=== PATIENT | male | born 1980 | race Caucasian/White ===

== ENCOUNTER 2016-05-10 13:44 | Inpatient (IN) | payer OTHER ==
[~2016-05-10] VITALS: Ht 165.1 cm; Wt 75.5 kg
[2016-05-10] MEDS ORDERED: ONDANSETRON 4 MG INJ IV STA (15:29)
[2016-05-10] MEDS ORDERED: SOD CHLORIDE 0.9% 1,000 ML IV STA (15:29)
[2016-05-10] MEDS ORDERED: morphine 4 MG/ML VIAL IV STA (15:29)
--- NOTE | 2016-05-10 16:31 | RADRPT ---
PROCEDURE: XR Chest. CLINICAL INDICATION: chest pain, GI bleed TECHNIQUE: Single frontal view of the chest was obtained COMPARISON: None FINDINGS: The heart and mediastinum are within normal limits. The lungs are clear. There is no pleural effusion or pneumothorax. RPTAT: AA IMPRESSION: No acute disease. .Heath Toussaint MD, Date Time Electronically viewed and signed by .Heath Toussaint MD, on 05/10/2016 16:31 .S/
[2016-05-10 16:33] LABS: ALBUMIN 2.9 g/dl (3.3-4.9); CHLORIDE 98 mmol/L (97-110)
[2016-05-10 16:34] LABS: POTASSIUM 4.6 mmol/L (3.5-5.1); SODIUM 134 mmol/L (135-144)
[2016-05-10 16:35] LABS: INR 0.97; PARTIAL THROMBOPLASTIN TIME 36.5 Sec (25.0-35.0); PROTIME 12.9 Sec (12.2-14.2)
[2016-05-10 16:36] LABS: ANION GAP 17 (8-16); BILIRUBIN,INDIRECT 0.2 mg/dl (0-1.1); BILIRUBIN,TOTAL 0.2 mg/dl (0.2-1.3); CARBON DIOXIDE 24 mmol/L (21-31); CREATININE 1.97 mg/dl (0.61-1.24)
[2016-05-10 16:37] LABS: ALANINE AMINOTRANSFERASE 41 IU/L (13-69); ALBUMIN/GLOBULIN RATIO 0.67; ALKALINE PHOSPHATASE 46 IU/L (42-121); ASPARTATE AMINO TRANSFERASE 87 IU/L (15-46); BLOOD UREA NITROGEN 33 mg/dl (7-20); CALCIUM 8.1 mg/dl (8.4-10.2); GLUCOSE 92 mg/dl (70-220); TOTAL PROTEIN 7.2 g/dl (6.1-8.1)
[2016-05-10 16:42] LABS: HEMATOCRIT 28.9 % (42.0-52.0); HEMOGLOBIN 9.6 g/dl (14.0-18.0); MEAN CORPUSCULAR HEMOGLOBIN 25.5 pg (29.0-33.0); MEAN CORPUSCULAR HGB CONC 33.3 g/dl (32.0-37.0); MEAN CORPUSCULAR VOLUME 76.5 fl (82.0-101.0); MEAN PLATELET VOLUME 10.3 fl (7.4-10.4); PLATELET COUNT 139 10^3/UL (140-440); RED BLOOD COUNT 3.77 10^6/ul (4.70-6.10); RED CELL DISTRIBUTION WIDTH 16.3 % (11.5-14.5)
[2016-05-10 16:44] LABS: CONDITION 1; LH ANALYZER COMMENTS 1; SUSPECT 1; UNCORRECTED WBC 2.6 10^3/ul (4.8-10.8)
[2016-05-10 16:47] LABS: IRON 66 ug/dl (35-150)
[2016-05-10 16:50] LABS: TROPONIN-I < 0.010 ng/ml (0.00-0.12)
[2016-05-10 16:54] LABS: FREE T3 2.63 pg/ml (2.77-5.27)
[2016-05-10 16:56] LABS: TOTAL IRON BINDING CAPACITY 196 ug/dl (241-421)
--- NOTE | 2016-05-10 17:21 | ERA ---
ER Documentation Chief Complaint Date/Time DATE: 05/10/16 TIME: 17:03 Chief Complaint PT SENT PER PMD FOR ABNORMAL LAB RESULT, ALSO WITH BODYACHES, HX OF LUPUS HPI 36-year-old man referred here by PMD for new diagnosis of lupus. Recent laboratory work was positive for excessive urine protein and antibodies against double-stranded DNA. Patient states over the last month he has lost 20-30 pounds and his symptoms began back in December 2015 with generalized weakness, abdominal cramping, body aches and arthralgias, facial rash, and bilateral upper and lower extremity swelling. Patient was previously an alcoholic who drank beer daily although states in December he stopped drinking altogether. He denies blood per rectum or recent travel, no night sweats, no vomiting or diarrhea, no melena, no complaints of chest pain or shortness of breath. ROS All systems reviewed and are negative except as per history of present illness. Allergies Allergies: Coded Allergies: No Known Allergy (Unverified , 05/10/16) PMhx/Soc Previous alcoholic History of Surgery: No Anesthesia Reaction: No Hx Neurological Disorder: No Hx Respiratory Disorders: No Hx Cardiac Disorders: No Hx Miscellaneous Medical Probl: Yes (LUPUS, ANEMIA) Hx Alcohol Use: Yes (OCCASSIONAL) Hx Substance Use: No Hx Tobacco Use: No Smoking Status: Never smoker FmHx Family History: No diabetes Physical Exam Vitals Vital Signs Date Time Temp Pulse Resp B/P Pulse Ox O2 Delivery O2 Flow Rate FiO2 05/10/16 18:40 99.3 88 18 102/57 100 Room Air 05/10/16 13:51 97.6 106 18 102/57 100 Physical Exam GENERAL: Well-developed, dehydrated, afebrile HEENT: Dry mucous membranes with dry cracking lips, no cervical spine tenderness or step-off deformities, no goiter, no jaundice or icterus, extraocular movements intact without pain. No submandibular induration, and no pharyngeal erythema NEURO: Alert and oriented 3, cranial nerves II through XII intact bilaterally, pupils equal round reactive to light, no focal deficits or facial asymmetry, sensation intact distally Strength 5/5 in upper and lower extremities bilaterally CARDIAC: Regular rate and rhythm, no murmurs rubs or gallops LUNGS: Clear bilaterally no wheezing crackles or stridor ABDOMEN: Soft nontender, no guarding, no rigidity, no rebound, no psoas sign no obturator sign. Normoactive bowel sounds SKIN: Warm and dry to touch, positive Malar rash, no target lesions, and without ulcers EXTREMITIES: No clubbing cyanosis, + 1+ pitting edema in the lower extremities bilaterally, calves are bilaterally symmetrical, no Homans sign, no popliteal cord sign. Distal pulses equal and bilateral PSYCH: Normal affect without agitation or irritability Result Diagram: 05/10/16 1545 05/10/16 1545 Results 24 hrs Laboratory Tests Test 05/10/16 15:45 Activated Partial Thromboplast Time 36.5Sec Alanine Aminotransferase (ALT/SGPT) 41IU/L Albumin 2.9g/dl Albumin/Globulin Ratio 0.67 Alkaline Phosphatase 46IU/L Anion Gap 17 Anisocytosis 1+ Aspartate Amino Transf (AST/SGOT) 87IU/L Blood Morphology Comment Blood Urea Nitrogen 33mg/dl Calcium Level 8.1mg/dl Carbon Dioxide Level 24mmol/L Chloride Level 98mmol/L Creatinine 1.97mg/dl Direct Bilirubin 0.00mg/dl Free Thyroxine 1.20ng/dl Free Triiodothyronine (T3) pg/mL 2.63pg/ml Globulin 4.30g/dl Glucose Level 92mg/dl Hematocrit 28.9% Hemoglobin 9.6g/dl Hemoglobin A1c 5.9% Hypochromasia 2+ INR International Normalized Ratio 0.97 Indirect Bilirubin 0.2mg/dl Iron Level 66ug/dl Large Platelets FEW Lipase 854U/L Lymphocytes # 0.210^3/ul Lymphocytes % 10.0% Mean Corpuscular Hemoglobin 25.5pg Mean Corpuscular Hemoglobin Concent 33.3g/dl Mean Corpuscular Volume 76.5fl Mean Platelet Volume 10.3fl Microcytosis 2+ Monocytes # 0.310^3/ul Monocytes % 13.0% Neutrophils # 1.510^3/ul Neutrophils % 77.0% Nucleated Red Blood Cells # 10^3/ul Ovalocytes 1+ Percent Iron Saturation 34% SAT Platelet Count 88533^3/UL Platelet Estimate PLT APPEAR ADEQUATE Potassium Level 4.6mmol/L Prothrombin Time 12.9Sec Prothrombin Time Ratio 1.0 Red Blood Count 3.7710^6/ul Red Cell Distribution Width 16.3% Sodium Level 134mmol/L Stomatocytes Thyroid Stimulating Hormone (TSH) 4.620MIU/L Total Bilirubin 0.2mg/dl Total Iron Binding Capacity 196ug/dl Total Protein 7.2g/dl Troponin I < 0.010ng/ml White Blood Count 2.010^3/ul Current Medications Medications (Trade) Dose Ordered Sig/Low Route PRN Reason Start Time Stop Time Status Last Admin Dose Admin Sodium Chloride (NS) 1,000 ml @ 1,000 mls/hr Q1H STAT IV 05/10/16 15:29 05/10/16 16:28 DC 05/10/16 16:07 Ondansetron HCl (Zofran Inj) 4 mg ONCE STAT IV 05/10/16 15:29 05/10/16 15:34 DC 05/10/16 16:07 Morphine Sulfate (morphine) 4 mg ONCE STAT IV 05/10/16 15:29 05/10/16 15:34 DC 05/10/16 16:07 Procedures/MDM IV line was established patient was placed on monitoring specialist rhythm strip revealed a sinus rhythm at about 90 bpm with upright P and T waves. Patient was afebrile. For dehydration I administered 1 L normal saline intravenously, morphine 4 mg IV , Zofran 4 mg IV for arthralgias. One AP view of the chest performed, read by me reveals no acute infiltrates, normal mediastinum, sharp costophrenic and cardiac borders, no air under the diaphragm. Otherwise unremarkable chest x-ray. EKG performed, read by me: 91 bpm, normal sinus rhythm, normal axis, no acute ST segment changes, narrow QRS complex, with good R-wave progression in precordial leads. CBC revealed leukopenia at 2 and anemia with a hematocrit of 29, thrombocytopenia at 139,000, electrolytes revealed renal failure and dehydration with a BUN/creatinine of 33/2, liver function tests revealed low albumin, troponin was negative. Hemoglobin A1c was normal, free T3 was low, TSH I ordered type and screen. Lipase was elevated over 800 Critical Care: Time: 36 minutes, this was time separate from other procedures. Treatments/Evaluations: Close monitoring and treatment of unstable vital signs, cardiorespiratory, and neurologic status, while maintaining tight balance of fluid, respiratory, and cardiac interventions. CT scan of the abdomen and pelvis is also been ordered results are pending I will follow-up. Departure Diagnosis: Primary Impression: Acute systemic lupus erythematosus Additional Impressions: Thrombocytopenia Renal failure Dehydration Pancreatitis Qualified Code: K85.90 - Acute pancreatitis, unspecified complication status, unspecified pancreatitis type Condition: SHLOMO Rivero MD May 10, 2016 17:14
[2016-05-10 18:40] VITALS: TEMP 99.3
[2016-05-10 18:54] LABS: ANISOCYTOSIS 1+; HYPOCHROMASIA 2+; LYMPHOCYTES # 0.2 10^3/ul (0.8-2.9); MONOCYTE # 0.3 10^3/ul (0.3-0.9); NEUTROPHIL # 1.5 10^3/ul (1.6-7.5)
[2016-05-10 18:55] LABS: MICROCYTOSIS 2+; OVALOCYTES 1+
[2016-05-10 18:56] LABS: PLATELET ESTIMATE PLT APPEAR ADEQUATE
--- NOTE | 2016-05-10 19:24 | RADRPT ---
PROCEDURE: CT abdomen and pelvis without contrast and with 3-D reconstructions CLINICAL INDICATION: Abdominal pain TECHNIQUE: CT scan of the abdomen and pelvis without contrast was performed on a multislice [facility]. 3-D sagittal and coronal reformatted images were obtained from the axial source images. DLP 435.18 mGycm CTDIvol 7.79 mGy COMPARISON: None. FINDINGS: The visualized lung bases are unremarkable. The liver is homogenous in attenuation. There are no focal liver lesions. There is no intrahepatic or extrahepatic biliary ductal dilatation. The gallbladder is within normal limits. The spleen, pancreas, and adrenal glands are within normal limits. There is prominent bilateral perinephric stranding as well as mild left greater than right hydroneph rosis. The bladder is distended. No renal/ureteral calculi are identified. There are no dilated or thickened loops of bowel. The appendix is not definitely identified although there are no findings to suggest acute appendicitis. The aorta is within normal limits. There are multiple prominent though not pathologically enlarged periaortic lymph nodes as well as an aortocaval lymph node measuring up to 11 mm in short axis on se janell 3, image 76. There are prominent though not pathologically enlarged external iliac chain lymph nodes bilaterally as well as a 1.6 cm left pelvic sidewall lymph node on series 3, image 145. The bladder is within normal limits. There is no free air. There is no free fluid. There are no enlarged intrapelvic or inguinal lymph nodes. There is a tiny fat - containing umbilical hernia. IMPRESSION: There is prominent bilateral perinephric stranding bilaterally which can be seen with pyelonephritis . Correlation with physical exam for costovertebral angle tenderness as well as correlation with ur inalysis for WBC casts is recommended. The bladder is distended and there is mild left greater than right hydronephrosis. Consider placing a Damico catheter if the patient is unable to void. No renal/ureteral calculi. Multiple prominent retroperitoneal and iliac chain lymph nodes are noted as well as an 11 mm aortoca lisa lymph node and a 1.6 cm left pelvic sidewall lymph node. Findings are nonspecific although in a male patient this age, differential considerations include testicular malignancy. A scrotal ultras ound is recommended for further evaluation. Tiny fat - containing umbilical hernia. RPTAT: EE Marc Taylor, Physician Date Time Electronically viewed and signed by Marc Taylor, Physician on 05/10/2016 19:23 RA/
[2016-05-10] MEDS ORDERED: NACL 0.9% 3 ML SYG IV SCH (19:30)
[2016-05-10] MEDS ORDERED: DOCUSATE SODIUM 100 MG CAP PO PRN (19:30)
[2016-05-10] MEDS ORDERED: ZOLPIDEM 5 MG TAB PO PRN (19:30)
[2016-05-10] MEDS ORDERED: ONDANSETRON 4 MG INJ IV PRN (19:30)
[2016-05-10] MEDS ORDERED: morphine 2 MG INJ IV PRN (19:30)
[2016-05-10] MEDS ORDERED: HYDROCODONE/APAP (5/325) TAB PO PRN (19:30)
[2016-05-10 20:12] VITALS: BP 116/65; RESP 18
[2016-05-10] MEDS: ACETAMINOPHEN 325 MG TAB PO PRN (20:37)
[2016-05-10] MEDS: METHYLPRED. NA SUCC 1,000 MG in DEXTROSE 5% 50 ML IVPB SCH (21:26)
[2016-05-11 03:44] VITALS: Ht 165.1 cm; Wt 75.5 kg
[2016-05-11 06:08] LABS: POTASSIUM 4.9 mmol/L (3.5-5.1)
[2016-05-11 06:11] LABS: CREATININE 1.75 mg/dl (0.61-1.24)
[2016-05-11 06:12] LABS: CALCIUM 7.8 mg/dl (8.4-10.2); MAGNESIUM 2.3 mg/dl (1.7-2.5)
--- NOTE | 2016-05-11 06:16 | HP ---
DATE OF ADMISSION: 05/10/2016 CHIEF COMPLAINT: Generalized weakness, joint pain. HISTORY OF PRESENT ILLNESS: The patient is a 36-year-old male with a recently diagnosed history of lupus. He was diagnosed at urgent care. He did have an RINKU and double stranded DNA that were both positive. He presents with joint pain as well as generalized weakness and rash on his face. He was given steroids and antibiotics recently, but he stopped taking the medications secondary to nausea, vomiting, and abdominal pain. Antibiotic was reportedly given because of blood in his urine. The patient does have a history of heavy alcohol use but states that he has not been drinking heavily fo r some time now and states that mostly it was social. Otherwise, the patient has no prior medical h istory. His main issue at this time is his pain throughout his body and his weakness. He has no ot her complaints at this time. PAST MEDICAL HISTORY: Recently diagnosed lupus and fractures in both feet secondary to playing bask etball. PAST SURGICAL HISTORY: Appendectomy. HOME MEDICATIONS: He is not taking any medication at that time. He was given prednisone recently a nd antibiotic but has not been taking it. ALLERGIES: NO KNOWN DRUG ALLERGIES. FAMILY HISTORY: Denies. SOCIAL HISTORY: Denies any current alcohol abuse, drug abuse, or tobacco abuse. REVIEW OF SYSTEMS: A 12-point review of systems is negative except for that discussed in HPI. PHYSICAL EXAMINATION: VITAL SIGNS: Temperature is 99.3, pulse is 88, respiratory rate is 18, BP is 102/57, saturation is 100% on room air. GENERAL: Mild distress, lethargic. HEENT: Normocephalic, atraumatic. Malar rash is noted on the face. LUNGS: Clear to auscultation. CARDIOVASCULAR: Regular rate and rhythm. ABDOMEN: Nondistended, nontender, soft. EXTREMITIES: No clubbing, cyanosis, or edema. MUSCULOSKELETAL: Diffuse sites of tenderness throughout his body in his shoulders and his abdomen a nd knees and ankles. SKIN: Malar rash noted on his face. LABORATORIES: White count is 2.0, hemoglobin is 9.6, platelets 139. Chemistry: Sodium is 134, BUN 33, creatinine is 1.97. TIBC is 196. AST is 87. Lipase is 864. INR is 0.97. DIAGNOSTICS: Chest x-ray shows no acute disease. ASSESSMENT AND PLAN: 1. Diffuse body pain and weakness secondary to lupus. The patient has not been appropriately treat ed for his lupus. He will be admitted and will be started on steroids. The patient does have a pos itive double stranded DNA and RINKU from outside labs. We will obtain a rheumatology consultation. 2. Acute kidney injury. This is likely secondary to the underlying lupus. We will get a nephrolog y consultation. 3. Abdominal pain secondary to pancreatitis. Exact etiology is not clear at this time. The patien t denies any alcohol abuse. This may be related to medication he was taking. He was on an antibiot ic. The antibiotic is not known at this time. We will keep patient n.p.o. and give morphine for pa in control. 4. Pancytopenia. The patient is leukopenic, anemic, and thrombocytopenic. Cause is likely from un derlying lupus, possibly from liver disease from his history of drinking. We will obtain a hepatiti s panel and abdominal ultrasound to evaluate the liver texture. 5. Prophylaxis. SCDs. Dictated By: BABAR GOODWIN/CURT Conf#: [id number] DID#: [id number]
[2016-05-11 06:31] LABS: HEMATOCRIT 27.5 % (42.0-52.0); HEMOGLOBIN 9.2 g/dl (14.0-18.0); MEAN CORPUSCULAR HEMOGLOBIN 25.4 pg (29.0-33.0); MEAN CORPUSCULAR HGB CONC 33.3 g/dl (32.0-37.0); MEAN CORPUSCULAR VOLUME 76.1 fl (82.0-101.0); MEAN PLATELET VOLUME 10.5 fl (7.4-10.4); PLATELET COUNT 115 10^3/UL (140-440); RED BLOOD COUNT 3.62 10^6/ul (4.70-6.10); WHITE BLOOD COUNT 0.9 10^3/ul (4.8-10.8)
[2016-05-11 06:33] LABS: CHOL/HDL RATIO 5.9 RATIO
[2016-05-11 06:44] LABS: CONDITION 1; LH ANALYZER COMMENTS 1; SUSPECT 1; UNCORRECTED WBC 2.6 10^3/ul (4.8-10.8)
[2016-05-11 07:41] VITALS: BP 118/71; RESP 16
[2016-05-11 09:06] LABS: HAAIG REFLEX REFLEX FILED
--- NOTE | 2016-05-11 09:53 | CONS ---
DATE OF ADMISSION: 05/10/2016 DATE OF CONSULTATION: TYPE OF CONSULTATION: Nephrology. REASON FOR CONSULTATION: Acute kidney injury, possible lupus nephritis. HISTORY OF PRESENT ILLNESS: This is a 36-year-old male with no previous medical history who present s to [facility] with a new diagnosis of lupus. The patient's symptoms began in No vember when he started having generalized body aches, abdominal pain, weakness. He stated he has be en to multiple physicians and was being worked up for possible pylori. The patient was also given c ourses of antibiotics; however, his symptoms progressed including worsening arthralgia with concomit ant facial rash or ulcers. The patient does have a history of alcohol use and states that he has be en drinking heavily during this time as well. The patient's primary doctor eventually sent out sero logical data and he was told he had positive anti-double stranded DNA. The patient was then transfe rred to [facility] for further evaluation. In terms of the patient's renal history, the patient has no prior history of renal disease. He does admit to the last several weeks to months of having intermittent swelling of the lower extremity as well as very frothy urine, and he does admit to having a facial rash. Denies any lower extremity o r petechial rash. He admits to having arthralgias, myalgias, difficulty ambulating and walking. He denies any chest pain, tachypnea, hemoptysis, hematemesis. The patient has no prior history of kid osman disease that he is aware of. The patient's mother does have lupus, but there is no family histo ry of kidney disease. PAST MEDICAL HISTORY: History of recently diagnosed lupus. PAST SURGICAL HISTORY: History of appendectomy. HOME MEDICATIONS: None. ALLERGIES: NO KNOWN DRUG ALLERGIES. FAMILY HISTORY: Positive for lupus. SOCIAL HISTORY: History of alcohol use. REVIEW OF SYSTEMS: A 14-point review of systems was conducted. Pertinent positives as stated in HP I, otherwise negative. PHYSICAL EXAMINATION: VITAL SIGNS: Blood pressure is 118/71, respirations 16, pulse 89, temperature 99.0. HEENT: Head is normocephalic. Pupils are reactive to light. The patient has noticed malar rash on his face. On oral exam, the patient has noted aphthous ulcers. NECK: Supple. HEART: Regular rate. LUNGS: Show diminished breath sounds at base, otherwise clear. ABDOMEN: Soft, mild tenderness to palpation. Positive CVA tenderness bilaterally. EXTREMITIES: Negative for clubbing, cyanosis. Trace edema, noted malar rash. DERMATOLOGIC: No petechial rashes noted. NEUROLOGIC: Limited exam due to general weakness, but limited exam due to lack of patient cooperati on. MUSCULOSKELETAL: Positive tenderness to palpation of his upper and lower extremities. LABORATORY DATA: Patient's white count is 0.9, hemoglobin 9.2, hematocrit 27.5, platelet count is 1 15. Sodium 133, potassium 4.5, chloride 100, BUN 38, creatinine 1.75, calcium 7.8. Urinalysis pend ing. IMAGING STUDIES: A chest x-ray shows no acute disease. CT scan of the abdomen and pelvis shows mars ateral perinephric stranding and there is mild left greater than right hydronephrosis. Multiple ret roperitoneal chains noted. ASSESSMENT AND PLAN: This is a 36-year-old male who presents with: 1. Nonoliguric acute kidney injury with unknown baseline creatinine. Etiology of acute kidney inju ry is worrisome for possible lupus glomerulonephritis. The patient has a history of recent diagnosi s of lupus and is an active flare clinically, with ongoing arthralgias, myalgias also ulcers, rash. Plan at this point is to check a urinalysis. Will evaluate the urine under microscopy to see him t o see if there is any evidence of active sediment. Will check a protein/creatinine ratio and albumi n/creatinine ratio. We will also send out serologies including complements, anti-double stranded DN A, RINKU, ANCA, rheumatoid factor. A renal ultrasound will also be checked. If the patient's finding s are consistent with active sediment, possible lupus nephritis will then order a kidney biopsy for staging of lupus. Agree with current medication management with pulse steroids of Solu-Medrol 1 gra m IV daily for 3 days. Would defer further immunosuppression of either mycophenolate or Cytoxan unt il a formal tissue biopsy is able to be obtained and will continue to monitor closely. 2. Presumed lupus erythematosus. The patient appears to be in clinical flare with active arthralgi as, myalgias, oral ulcers. As stated above, we will send out serological data. A rheumatology cons ult has been placed. The patient is currently on pulse steroids. Will monitor closely. 3. Hyponatremia, etiology secondary to acute kidney injury. We will monitor closely and limit free water intake. 4. Mineral bone disorder. We will check calcium and phosphorus level. Defer any phosphate binders at this time. 5. Pancytopenia. Etiology is likely due to underlying lupus. Will monitor closely. We will follo w up serologies. The patient is currently being pulsed with steroids. May consider hematologic farncisca luation. 6. Abdominal pain. Etiology secondary to pancreatitis and due to underlying lupus a CT scan was re viewed. We will continue current treatment plan. 7. History of alcohol abuse. Continue to monitor. 8. Bilateral hydronephrosis, mild. The patient's CT scan shows perinephric stranding which can be seen in pyelonephritis or acute glomerulonephritis. At this point, will get a renal ultrasound for further evaluation and monitor. Thank you, Dr. Leung, for this interesting consultation. It will be a pleasure to follow patient with you throughout the hospital course. Dictated By: ISMAEL WALL/CURT Conf#: [id number] DID#: [id number]
[2016-05-11 10:03] LABS: LYMPHOCYTES # 0.1 10^3/ul (0.8-2.9); NEUTROPHIL # 0.7 10^3/ul (1.6-7.5)
[2016-05-11 11:39] LABS: COMPLEMENT C3 < 40 mg/dl (88-165); COMPLEMENT C4 < 8 mg/dl (14-44)
[2016-05-11 11:49] LABS: HEMATOCRIT 28.3 % (42.0-52.0); HEMOGLOBIN 9.4 g/dl (14.0-18.0); MEAN CORPUSCULAR HEMOGLOBIN 25.7 pg (29.0-33.0); MEAN CORPUSCULAR HGB CONC 33.2 g/dl (32.0-37.0); MEAN CORPUSCULAR VOLUME 77.3 fl (82.0-101.0); PLATELET COUNT 111 10^3/UL (140-440); RED BLOOD COUNT 3.66 10^6/ul (4.70-6.10); RED CELL DISTRIBUTION WIDTH 15.9 % (11.5-14.5); WHITE BLOOD COUNT 1.4 10^3/ul (4.8-10.8)
[2016-05-11 11:56] LABS: CONDITION 1; LH ANALYZER COMMENTS 1; SUSPECT 1; UNCORRECTED WBC 2.6 10^3/ul (4.8-10.8)
[2016-05-11 12:17] LABS: HEPATITIS B CORE ANTIBODY NEGATIVE (NEGATIVE)
[2016-05-11 14:15] LABS: LYMPHOCYTES # 0.3 10^3/ul (0.8-2.9); MONOCYTE # 0.1 10^3/ul (0.3-0.9); NEUTROPHIL # 0.9 10^3/ul (1.6-7.5)
[2016-05-11 14:16] LABS: PLATELETS CLUMPS RARE
--- NOTE | 2016-05-11 16:15 | PN ---
Date/Time of Note Date/Time of Note DATE: 05/11/16 TIME: 16:12 Assessment/Plan VTE Prophylaxis VTE Prophylaxis Intervention: SCD's Lines/Catheters IV [facility]ter [facility] ([facility] Peripheral IV Urinary Cath still in place: No Assessment/Plan Chief Complaint/Hosp Course 1. Diffuse body pain and weakness secondary to lupus -Continue steroid pulses -Rheumatology consultation to be obtained 2. Acute kidney injury possibly secondary to lupus nephritis -Nephrology consultation appreciated, continue steroid pulses 3. Abdominal pain secondary to pancreatitis-improved -Etiology is not clear at this time 4. Pancytopenia. The patient is leukopenic, anemic, and thrombocytopenic. Cause is likely from underlying lupus, possibly from liver disease from his history of drinking -Follow-up on hepatitis panel and ultrasound of the abdomen to evaluate the liver 5. Prophylaxis. SCDs. Problems: Subjective 24 Hr Interval Summary Constitutional: no complaints Exam/Review of Systems Vital Signs Vitals Vital Signs Date Time Temp Pulse Resp B/P Pulse Ox O2 Delivery O2 Flow Rate FiO2 05/11/16 07:41 99.0 89 16 118/71 97 05/10/16 18:40 Room Air Intake and Output 05/10/16 05/10/16 05/11/16 15:00 23:00 07:00 Intake Total 50 ml 1160 ml Output Total 600 ml Balance 50 ml 560 ml Exam Constitutional: alert, oriented Respiratory: clear to auscultation Cardiovascular: regular rate and rhythm Gastrointestinal: non-tender, soft, No distended Musculoskeletal: nl extremities to inspection Results Result Diagram: 05/11/16 0435 05/11/16 0500 Results 24 hrs Laboratory Tests Test 05/11/16 04:15 05/11/16 04:35 05/11/16 05:00 05/11/16 09:50 Band Neutrophils % 3.0 Basophils # 0.0 Basophils % 1.0 Blood Morphology Comment Clumped Platelets RARE Eosinophils # Eosinophils % Hematocrit 28.3 L 27.5 L Hemoglobin 9.4 L 9.2 L Hemoglobin A1c 5.9 Lymphocytes # 0.3 L 0.1 L Lymphocytes % 24.0 16.0 Mean Corpuscular Hemoglobin 25.7 L 25.4 L Mean Corpuscular Hemoglobin Concent 33.2 33.3 Mean Corpuscular Volume 77.3 L 76.1 L Mean Platelet Volume 11.0 H 10.5 H Monocytes # 0.1 L 0.0 L Monocytes % 10.0 5.0 Neutrophils # 0.9 L 0.7 L Neutrophils % 62.0 79.0 H Nucleated Red Blood Cells # Platelet Count 111 #L 115 L Red Blood Count 3.66 L 3.62 L Red Cell Distribution Width 15.9 H 16.0 H White Blood Count 1.4 #L 0.9 #L Complement C3 < 40 L Complement C4 < 8 L Differential Comment MANUAL DIFF Hepatitis B Core Total Antibody NEGATIVE Hepatitis B Surface Antigen NEGATIVE Hepatitis C Antibody NEGATIVE Osmolality 285 Anion Gap 16 Blood Urea Nitrogen 38 H Calcium Level 7.8 L Carbon Dioxide Level 22 Chloride Level 100 Cholesterol Level 77 L Cholesterol/HDL Ratio 5.9 Creatinine 1.75 H Glucose Level 151 HDL Cholesterol 13 L LDL Cholesterol, Calculated 41 Magnesium Level 2.3 Potassium Level 4.9 Sodium Level 133 L Triglycerides Level 117 HIV (1&2) Antibody NEGATIVE Medications Medications Current Medications Ondansetron HCl (Zofran Inj) 4 mg Q6H PRN IV NAUSEA AND/OR VOMITING; Start at 19:30 Acetaminophen (Tylenol Tab) 650 mg Q6H PRN PO PAIN LEVEL 1-3 OR FEVER Last administered on 05/10/16 20:37; Admin Dose 650 MG; Start 05/10/16 at 19:30 Acetaminophen/ Hydrocodone Bitart ([place] (5/325)) 1 tab Q6H PRN PO MODERATE PAIN LEVEL 4-6; Start 05/10/16 at 19:30 Morphine Sulfate (morphine) 2 mg Q4H PRN IV SEVERE PAIN LEVEL 7-10; Start 05/10 at 19:30 Docusate Sodium (Colace) 100 mg Q12H PRN PO CONSTIPATION; Start 05/10/16 at 19: 30 Zolpidem Tartrate 5 mg 5 mg QHS PRN PO SLEEP; Start 05/10/16 at 19:30 Methylprednisolone Sodium Succinate/ Dextrose (Solu-Medrol/D5W) 50 ml @ 100 mls /hr Q24H IVPB Last administered on 05/10/16 21:26; Admin Dose 100 MLS/HR; Start 05/10/16 at 21:00; Stop 05/12/16 at 21:29 BABAR SANCHEZ May 11, 2016 16:15
--- NOTE | 2016-05-11 17:39 | RADRPT ---
PROCEDURE: US Abdomen and Retroperitoneum. CLINICAL INDICATION: Abdominal pain. TECHNIQUE: Multiple real-time longitudinal and transverse images were acquired of the patient's ab domen and retroperitoneum utilizing a curved array transducer. COMPARISON: No prior studies are available for comparison. FINDINGS: The liver is normal in size and echogenicity. The liver has a normal smooth surface. There is no fo mathieu hepatic lesion. Color Doppler and pulsed Doppler sonography demonstrate normal antegrade flow in the portal vein. There are no gallstones in the gallbladder. There is an anterior wall gallbladder polyp measuring 0 .2 cm, probably benign. There is gallbladder wall thickening measuring 4.3 mm and adjacent trace fl uid. The bile ducts are normal with the common bile duct measuring 2.1 mm in diameter. The spleen is normal in size. There is no focal splenic lesion. The pancreas is partially seen and is unremarkable. There is no free fluid. The right kidney measures 11.8 x 5.2 x 5.7 cm and the left kidney measures 12.4 x 5.9 x 4.6 cm. There is no renal mass. There is no hydronephrosis or calculus. The abdominal aorta is not dilated. The inferior vena cava is unremarkable. IMPRESSION: 1. Small gallbladder polyp measuring 0.2 cm. Follow-up ultrasound in 6 months advised. 2. Mild gallbladder wall thickening with adjacent trace fluid. This may indicate acalculous cholec ystitis. Clinical correlation advised. 3. Otherwise unremarkable ultrasound of the abdomen and retroperitoneum. RPTAT: QQ .Stew Garcia MD, MD Date Time Electronically viewed and signed by .Stew Garcia MD, on 05/11/2016 17:39 .R/
[2016-05-11 19:15] VITALS: BP 118/76; RESP 18
[2016-05-11] MEDS ORDERED: VITAMIN A & D 5 GM OINT PACKET TOP ONE (20:42)
[2016-05-11] MEDS: METHYLPRED. NA SUCC 1,000 MG in DEXTROSE 5% 50 ML IVPB SCH (22:52)
[2016-05-12] VITALS (7 sets, daily range): BP systolic 110–126; BP diastolic 70–84; PULSE 68–90; RESP 16–21
--- NOTE | 2016-05-12 03:40 | RADRPT ---
PROCEDURE: Ultrasound of the scrotum. CLINICAL INDICATION: Clinical suspicion for neoplasm. TECHNIQUE: Ultrasound of the scrotum was performed utilizing color Doppler flow imaging COMPARISON: There are no similar studies submitted for comparison. FINDINGS: Right testis: Size (cm): 3.2 x 1.8 x 2.6 Echotexture: Normal Doppler flow: Present Epididymal head: Unremarkable Hydrocele: Small hydrocele is present. Varicocele: Small varicocele is present. Left testis: Size (cm): 3.9 x 2 x 2.9 Echotexture: Normal Doppler flow: Present Epididymal head: Unremarkable Hydrocele: None Varicocele: Small varicocele is present. IMPRESSION: Small bilateral hydroceles and small right hydrocele. No evidence of testicular mass. RPTAT: HIKT .Reed Marie MD, Date Time Electronically viewed and signed by .Reed Marie MD, on 05/12/2016 03:40 .T/
[2016-05-12 05:28] LABS: HEMATOCRIT 28.7 % (42.0-52.0); HEMOGLOBIN 9.8 g/dl (14.0-18.0); MEAN CORPUSCULAR VOLUME 76.6 fl (82.0-101.0); MEAN PLATELET VOLUME 11.1 fl (7.4-10.4); PLATELET COUNT 134 10^3/UL (140-440); RED BLOOD COUNT 3.75 10^6/ul (4.70-6.10); RED CELL DISTRIBUTION WIDTH 16.1 % (11.5-14.5); WHITE BLOOD COUNT 2.1 10^3/ul (4.8-10.8)
[2016-05-12 05:49] LABS: POTASSIUM 4.5 mmol/L (3.5-5.1)
[2016-05-12 05:52] LABS: CREATININE 1.71 mg/dl (0.61-1.24); PHOSPHORUS 5.8 mg/dl (2.5-4.9)
[2016-05-12 05:53] LABS: MAGNESIUM 2.5 mg/dl (1.7-2.5)
[2016-05-12 05:57] LABS: CONDITION 1; LH ANALYZER COMMENTS 1; SUSPECT 1
[2016-05-12 09:26] LABS: ADD UMIC YES; URINE BILIRUBIN (Dip) NEGATIVE (NEGATIVE); URINE BLOOD (Dip) 3+ (NEGATIVE); URINE COLOR LT. YELLOW (YELLOW); URINE GLUCOSE (Dip) NEGATIVE (NEGATIVE); URINE KETONES (Dip) NEGATIVE (NEGATIVE); URINE LEUKOCYTE ESTERASE (Dip) NEGATIVE (NEGATIVE); URINE NITRITE (Dip) NEGATIVE (NEGATIVE); URINE TOTAL PROTEIN (Dip) 1+ (NEGATIVE); URINE UROBILINOGEN (Dip) 0.2 E.U./dL (0.1-1.0)
[2016-05-12 09:45] LABS: SQUAMOUS EPITHELIAL CELL,UR OCCASIONAL; URIC ACID CRYSTALS,URINE FEW
[2016-05-12 10:49] LABS: ANISOCYTOSIS 1+; HYPOCHROMASIA 2+; LYMPHOCYTES # 0.5 10^3/ul (0.8-2.9); MONOCYTE # 0.1 10^3/ul (0.3-0.9); NEUTROPHIL # 1.4 10^3/ul (1.6-7.5)
[2016-05-12 10:50] LABS: MICROCYTOSIS 2+
[2016-05-12 11:55] LABS: MYELOPEROXIDASE ANTIBODY <1.0 AI; PROTEINASE-3 ANTIBODY <1.0 AI
[2016-05-12] MEDS: SOD CHLORIDE 0.9% 1,000 ML IV SCH (13:17)
--- NOTE | 2016-05-12 13:56 | PN ---
DATE: 05/12/2016 SUBJECTIVE: The patient continues to have low-grade fevers, but generally the patient is feeling be tter overall. Notes arthralgia, myalgia. The patient continues to have oral mouth pain. Denies an y hemoptysis, any chest pain, hematochezia. OBJECTIVE: VITAL SIGNS: Blood pressure is 116/74, respiration 16, pulse 79, temperature 97.4. HEENT: Head is normocephalic. Pupils are reactive. Mouth shows noted ulcers. NECK: Supple. HEART: Regular rate. LUNGS: Show diminished breath sounds at the base. ABDOMEN: Soft, nontender to palpation. No rebound or guarding. EXTREMITIES: Negative for clubbing, cyanosis. No edema. DERMATOLOGIC: The patient has a noted malar rash. NEUROLOGIC: No focal deficits. LABORATORY DATA: Shows a sodium 137, potassium 4.5, chloride 105, BUN 50, creatinine 1.70. Calcium 8.0, phosphorus 5.8. White count is 2.1, hemoglobin 9.8, hematocrit 28.7, platelet count is 134. The patient's serological data shows C3, C4 low complements less than 40 and 8, elevated double stra nded DNA of 961. Urinalysis shows RBCs 5 to 10, WBCs 2 to 5, positive granular casts, +3 hemoglobin , +1 proteinuria. Abdominal ultrasound showed right and left kidneys 12.4 and 11.8 cm respectively. ASSESSMENT AND PLAN: 1. Nonoliguric acute kidney injury with unknown baseline creatinine. Etiology is worrisome for lup us glomerulonephritis. The patient has an active urinary sediment of proteinuria, hematuria and gra nular casts. These findings are consistent with a tubular injury and possible glomerulonephritis. Additionally, the patient has evidence of active lupus flare with low complements, elevated double s tranded DNA and systemic complaints of arthralgias, myalgias, oral ulcers, malar rash. The patient also is in acute kidney injury. His creatinine appears to be stabilizing around 1.7 mg/dL. Plan at this point is to continue pulse steroid. The patient is receiving 1 g Solu-Medrol daily. Today is day #2. Tomorrow will be day #3. We will then transition patient to oral prednisone. Further ser ological data including anti-[place], ANCA, RINKU are still pending. The patient is also pending renal biopsy for staging of underlying lupus. Would defer further immunosuppression therapy of Cytoxan or mycophenolate until formal biopsy tissue returns. We will monitor closely. 2. Lupus erythematosus. The patient is in active flare as stated above with arthralgia, myalgias, oral ulcers. The patient's complement levels are low, has positive anti-double stranded DNA. Plan is to continue to monitor. We will follow up for rheumatologic evaluation. Continue pulse steroids . 3. Hyponatremia, resolved. 4. Mineral bone disorder. Phosphorus levels are elevated secondary to acute kidney injury. Contin ue to monitor. 5. Pancytopenia due to underlying lupus. Continue to monitor. Consider hematologic evaluation. C ontinue pulse steroids. 6. Abdominal pain, likely secondary to underlying lupus flare. Continue current treatment plan. 7. History of alcohol abuse. Continue to monitor. 8. Mild bilateral hydronephrosis, improved. Repeat ultrasound shows no evidence of obstruction. Dictated By: ISMAEL WALL/CURT Conf#: [id number] DID#: [id number]
--- NOTE | 2016-05-12 16:26 | PN ---
Date/Time of Note Date/Time of Note DATE: 05/12/16 TIME: 16:23 Assessment/Plan VTE Prophylaxis VTE Prophylaxis Intervention: SCD's Lines/Catheters [facility] Peripheral IV Urinary Cath still in place: No Assessment/Plan Chief Complaint/Hosp Course 1. Diffuse body pain and weakness secondary to lupus -Continue steroid pulses -Rheumatology consultation obtained, FU with recs 2. Acute kidney injury possibly secondary to lupus nephritis -Nephrology consultation appreciated, continue steroid pulses 3. Abdominal pain secondary to pancreatitis-improved -Etiology is not clear at this time 4. Pancytopenia. The patient is leukopenic, anemic, and thrombocytopenic. Cause is likely from underlying lupus, possibly from liver disease from his history of drinking -Follow-up on hepatitis panel and ultrasound of the abdomen to evaluate the liver 5. Prophylaxis. SCDs. Problems: Subjective 24 Hr Interval Summary Constitutional: no complaints Exam/Review of Systems Vital Signs Vitals Vital Signs Date Time Temp Pulse Resp B/P Pulse Ox O2 Delivery O2 Flow Rate FiO2 05/12/16 07:58 97.4 79 16 116/74 95 05/10/16 18:40 Room Air Intake and Output 05/11/16 05/11/16 05/12/16 15:00 23:00 07:00 Intake Total 900 ml 1050 ml Output Total 1100 ml Balance -200 ml 1050 ml Exam Constitutional: alert, oriented Respiratory: clear to auscultation Cardiovascular: regular rate and rhythm Gastrointestinal: soft, No distended Musculoskeletal: nl extremities to inspection Results Result Diagram: 05/12/16 0430 05/12/16 0430 Results 24 hrs Laboratory Tests Test 05/11/16 21:39 05/12/16 04:30 05/12/16 08:30 Urine Random Creatinine 84.26 62.34 Urine Random Sodium 29 L 24 L Urine Total Protein Anion Gap 17 H Anisocytosis 1+ Blood Morphology Comment Blood Urea Nitrogen 50 H Calcium Level 8.0 L Carbon Dioxide Level 20 L Chloride Level 105 Creatinine 1.71 H Erythrocyte Sedimentation Rate 44 H Glucose Level 162 Hematocrit 28.7 L Hemoglobin 9.8 L Hypochromasia 2+ Lymphocytes # 0.5 L Lymphocytes % 24.0 Magnesium Level 2.5 Mean Corpuscular Hemoglobin 26.0 L Mean Corpuscular Hemoglobin Concent 34.0 Mean Corpuscular Volume 76.6 L Mean Platelet Volume 11.1 H Microcytosis 2+ Monocytes # 0.1 L Monocytes % 7.0 Neutrophils # 1.4 L Neutrophils % 69.0 Nucleated Red Blood Cells % 9.0 H Phosphorus Level 5.8 H Platelet Count 134 L Potassium Level 4.5 Red Blood Count 3.75 L Red Cell Distribution Width 16.1 H Sodium Level 137 White Blood Count 2.1 #L Urine Bilirubin NEGATIVE Urine Clarity CLEAR Urine Color LT. YELLOW Urine Fine Granular Casts OCCASIONAL Urine Glucose NEGATIVE Urine Hemoglobin 3+ H Urine Ketones NEGATIVE Urine Leukocyte Esterase NEGATIVE Urine Microscopic RBC 5-10 Urine Microscopic WBC 2-5 Urine Nitrite NEGATIVE Urine Specific [place] 1.025 Urine Squamous Epithelial Cells OCCASIONAL Urine Uric Acid Crystals FEW Urine Urobilinogen 0.2 E.U./dL Urine pH 5.0 Medications Medications Current Medications Ondansetron HCl (Zofran Inj) 4 mg Q6H PRN IV NAUSEA AND/OR VOMITING; Start at 19:30 Acetaminophen (Tylenol Tab) 650 mg Q6H PRN PO PAIN LEVEL 1-3 OR FEVER Last administered on 05/10/16 20:37; Admin Dose 650 MG; Start 05/10/16 at 19:30 Acetaminophen/ Hydrocodone Bitart ([place] (5/325)) 1 tab Q6H PRN PO MODERATE PAIN LEVEL 4-6; Start 05/10/16 at 19:30 Morphine Sulfate (morphine) 2 mg Q4H PRN IV SEVERE PAIN LEVEL 7-10; Start 05/10 at 19:30 Docusate Sodium (Colace) 100 mg Q12H PRN PO CONSTIPATION; Start 05/10/16 at 19: 30 Zolpidem Tartrate 5 mg 5 mg QHS PRN PO SLEEP; Start 05/10/16 at 19:30 Methylprednisolone Sodium Succinate 1000 mg/Dextrose 50 ml @ 100 mls/hr Q24H IVPB Last administered on 05/11/16 22:52; Admin Dose 100 MLS/HR; Start at 21:00; Stop 05/12/16 at 21:29 Sodium Chloride (NS) 1,000 ml @ 50 mls/hr Q20H IV Last administered on 13:17; Admin Dose 50 MLS/HR; Start 05/12/16 at 11:30 BABAR SANCHEZ May 12, 2016 16:26
--- NOTE | 2016-05-12 20:09 | CONS ---
DATE OF ADMISSION: 05/10/2016 DATE OF CONSULTATION: TYPE OF CONSULTATION: Rheumatology. HISTORY OF PRESENT ILLNESS: Patient is a 36-year-old man who was in good apparent health until 02/2016 when he developed diffuse myalgias and arthralgias and some increased fatigue, as well as some lower extremity edema. About a month ago, he developed a rash in the face and some lip sores. He was noted to have a positive RINKU and double stranded DNA and was referred to the hospital for further evaluation and treatment. The patient denies a prior history of arthritis or rashes. Denies a history of photosensitivity. Two months ago he was treated for possible H. pylori, although denies abdominal pain at present. Today, he received a third Solu-Medrol 1 gram IV bolus and he is feeling much better, much less arthralgias and joint stiffness. PAST MEDICAL HISTORY: Basically unremarkable. PAST SURGERIES: Appendectomy. MEDICATIONS PRIOR TO ADMISSION: None. ALLERGIES: NO KNOWN ALLERGIES. Pulse 90 respirations 18 afebrile SOCIAL HISTORY: The patient is single, does have a history of heavy alcohol use. Denies smoking. FAMILY HISTORY: Positive for lupus in several family members. REVIEW OF SYSTEMS: Negative for fevers. HEENT: Without visual symptoms. RESPIRATORY: Denies shortness of breath or chest pains. CARDIAC: Denies palpitations. ABDOMEN: Denies abdominal pain, nausea, or vomiting. Denies hematemesis or bright red blood per rectum. GENITOURINARY: He denies dysuria or increased frequency, although may have had some frothy urine recently. EXTREMITIES: Edema in the lower extremities recently as above. NEUROLOGIC: Denies numbness or paresthesias or headaches. MUSCULOSKELETAL: As above. Denies actual joint swelling. Physical examination Vital signs 125/67 pulse 90 respirations 18 afebrile General well-developed well-nourished male no acute distress alert oriented 3 Skin with maculopapular rash forehead and cheeks. HEENT superficial left postdose source in the lower lip otherwise without acute or ocular lesions noted Neck without lymphadenopathy supple Chest clear to auscultation Heart regular rhythm without gallops or murmurs noted or bruits Abdomen soft without masses or tenderness Extremities without edema or cyanosis Musculoskeletal exam all joints with good range of motion with no synovitis Neurologic exam grossly intact LABORATORY STUDIES: Noted, including urinalysis with only 1+ protein. C3 less than 40 minutes. C4 less than 8. Double stranded DNA highly positive at 161. PR3 negative, MPO negative. Rheumatoid factor negative. Cryoglobulins pending. White count around 2000, down to 0.9 on 05/11/2016, hemoglobin down to 9.2, hematocrit 27.5 yesterday. Platelet count 115,000. Sedimentation rate 44. BUN 38, creatinine 1.75 on 05/11/2016. BUN 50, creatinine 1.71 today. Cholesterol 77. Hepatitis serologies negative. HIV serology negative. Chest x -ray with clear lung bobo, no cardiomegaly. CT of the abdomen and pelvis noted. Other imaging studies noted. ASSESSMENT: 1. Systemic lupus erythematosus with positive serologies including double stranded DNA and low complement as well as malar rash, leukopenia, anemia and probable glomerulonephritis. 2. Glomerulonephritis with elevated creatinine likely due to lupus. 3. Anemia, likely a combination of this, but primarily due to the inflammatory process and renal insufficiency. No evidence of hemolysis so far or of blood loss. PLAN: 1. I agree with having taken the three 1 gram Solu-Medrol boluses. 2. I would like to start the patient on immunosuppressive medication with CellCept at 500 mg b.i.d. for now. 3. Would decrease the prednisone to 60 mg per day at this point and will discuss further with the oil rag washer. 4. I agree with renal biopsy as soon as possible to clarify the renal status. I spoke in detail with the patient regarding the probable diagnosis of lupus and glomerulonephritis as well as the mechanism, and I spoke with him in detail about potential side effects of corticosteroids and of the immunosuppressive medications. The patient is aware. Thank you for having me see the patient rheumatologically. Will follow with you while in the hospital. Dictated By: ARIEL PELAYO/CURT Conf#: [id number] DID#: [id number] AMAYA
[2016-05-12 20:15] LABS: ANA SCREEN POSITIVE (NEGATIVE)
[2016-05-12] MEDS: MYCOPHENOLATE 250 MG CAP PO SCH ×2 (21:00→22:40)
[2016-05-12] MEDS: METHYLPRED. NA SUCC 1,000 MG in DEXTROSE 5% 50 ML IVPB SCH ×2 (21:00→22:40)
[2016-05-12] MEDS ORDERED: VITAMIN A & D 5 GM OINT PACKET TOP ONE (21:04)
[2016-05-13 05:14] LABS: HEMATOCRIT 28.5 % (42.0-52.0); HEMOGLOBIN 9.6 g/dl (14.0-18.0); MEAN CORPUSCULAR HEMOGLOBIN 25.9 pg (29.0-33.0); MEAN CORPUSCULAR HGB CONC 33.9 g/dl (32.0-37.0); MEAN CORPUSCULAR VOLUME 76.4 fl (82.0-101.0); MEAN PLATELET VOLUME 11.1 fl (7.4-10.4); PLATELET COUNT 167 10^3/UL (140-440); RED BLOOD COUNT 3.73 10^6/ul (4.70-6.10); RED CELL DISTRIBUTION WIDTH 16.7 % (11.5-14.5); WHITE BLOOD COUNT 3.5 10^3/ul (4.8-10.8)
[2016-05-13 05:21] LABS: CONDITION 1; LH ANALYZER COMMENTS 1; SUSPECT 1; UNCORRECTED WBC 3.8 10^3/ul (4.8-10.8)
[2016-05-13 05:29] LABS: POTASSIUM 4.5 mmol/L (3.5-5.1)
[2016-05-13 05:32] LABS: CREATININE 1.45 mg/dl (0.61-1.24)
[2016-05-13 05:33] LABS: CALCIUM 8.1 mg/dl (8.4-10.2); MAGNESIUM 2.5 mg/dl (1.7-2.5); PHOSPHORUS 4.7 mg/dl (2.5-4.9)
[2016-05-13] MEDS: SOD CHLORIDE 0.9% 1,000 ML IV SCH ×2 (07:30→10:50)
[2016-05-13 08:13] VITALS: BP 117/72; RESP 18
[2016-05-13] MEDS ORDERED: MIDAZOLAM 1 MG/ML 2 ML INJ ONE (08:20)
[2016-05-13] MEDS ORDERED: LIDOCAINE 1% (MDV) 20 ML INJ ONE (08:20)
[2016-05-13] MEDS ORDERED: FENTAnyl 50 MCG/ML VIAL ONE (08:21)
[2016-05-13] MEDS ORDERED: DIPHENHYDRAMINE 50 MG INJ ONE (08:21)
[2016-05-13] MEDS ORDERED: GELATIN 12MM X 7 MM SPONGE ONE (09:01)
--- NOTE | 2016-05-13 09:37 | PN ---
DATE: 05/13/2016 SUBJECTIVE: The patient is stable. He is pending a renal biopsy this morning. The patient continu es to have arthralgias and myalgias, but improving. No other acute events noted. No hemoptysis, he matemesis or hematochezia. OBJECTIVE: VITAL SIGNS: Blood pressure is 115/75, respirations 20, pulse 66, temperature 97.6. HEENT: Head is normocephalic. Pupils are reactive. Mouth shows noted ulcers. NECK: Supple. HEART: Regular rate. LUNGS: Showed diminished breath sounds at the base. ABDOMEN: Soft, nontender to palpation. No rebound or guarding. EXTREMITIES: Negative for clubbing, cyanosis, or edema. DERMATOLOGIC: No rashes. NEUROLOGIC: No focal deficits. MEDICATIONS: The patient's medications have been reviewed. LABORATORY DATA: Shows sodium 143, potassium 4.5, chloride 111, BUN 49, creatinine 1.45. White cou nt 3.5, hemoglobin 9.6, hematocrit 28.5, platelet count is 167. The patient's serological data, RINKU is positive, ANCA is negative, hepatitis panel is negative, rheumatoid factor is negative. ASSESSMENT AND PLAN: 1. Nonoliguric acute kidney injury, with an unknown baseline creatinine. 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 The patient has an active urinary sediment with proteinuria, hematuria a nd casts. The patient's urine was evaluated by myself under microscopy, which showed evidence of dysmorphic cells. These findings are consistent with a possible glomerulonephritis. The patien t also has evidence of active lupus flare, with low complements, elevated RINKU, anti-double stranded DNA, and clinical symptoms of arthralgia and myalgias. The plan at this point is for the patient to have a renal biopsy. The patient has completed his pulse steroids. Agree with starting prednisone at 60 mg daily. Agree with CellCept, which has been initiated by the lead installer at 500 mg b.i. d. Will await for final renal pathology to see if dose of CellCept would need to be increased to a higher dose. Otherwise would continue gentle IV hydration. Continue supportive care, renally dose all meds and avoid nephrotoxins. 2. Lupus erythematosus. Patient with active flare. He was seen by rheumatology, currently on Cell Cept and prednisone. Will continue. Follow up recommendations. 3. Hyponatremia. Resolved. 4. Mineral bone disorder. Continue to monitor calcium and phosphorus levels. 5. Pancytopenia secondary to lupus. Continue the current medical management. 6. Abdominal pain, likely due to lupus flare. Improving. 7. History of alcohol abuse. 8. General debility. Dictated By: ISMAEL WALL/CURT Conf#: [id number] DID#: [id number]
[2016-05-13 10:09] LABS: LYMPHOCYTES # 0.6 10^3/ul (0.8-2.9); MONOCYTE # 0.1 10^3/ul (0.3-0.9); NEUTROPHIL # 2.8 10^3/ul (1.6-7.5)
[2016-05-13 10:10] LABS: ANISOCYTOSIS 1+; HYPOCHROMASIA 2+; MICROCYTOSIS 2+; PLATELETS CLUMPS RARE
[2016-05-13 10:40] VITALS: BP 108/71; PULSE 63; RESP 18
[2016-05-13] MEDS: predniSONE 20 MG TAB PO SCH (10:50)
[2016-05-13] MEDS: MYCOPHENOLATE 250 MG CAP PO SCH ×2 (10:50→20:17)
[2016-05-13 11:00] VITALS: BP 114/74; PULSE 60; RESP 16
[2016-05-13 11:15] VITALS: BP 111/71; PULSE 60; RESP 18
--- NOTE | 2016-05-13 12:53 | RADRPT ---
PROCEDURE: CT guided left renal biopsy. CLINICAL INDICATION: Medical renal disease. New onset of lupus. TECHNIQUE: Informed consent was obtained. The procedure, risks, benefits, complications and alternatives were explained to the patient. Risks including bleeding and infection were explained. The patient unders tood and was willing to proceed. A procedural pause was performed. The patient's name, date of zaria h, and procedure to be performed were verified. One or more of the following dose reduction techni ques were used: Automated exposure control, adjustment of the mA and/or kV according to patient size , use of iterative reconstruction technique. Using local anesthetic, sterile technique and CT guidance, an 18-gauge automated core biopsy needle was used to biopsy the lower pole of the left kidney. Multiple passes were made. Adequate tissue w as obtained according to the pathologist present during the procedure. Multiple Gelfoam pledgets mi xed with normal saline were then embolized through the outer cannula of the biopsy needle into the b iopsy tract while the needle was removed. A postprocedural scan was performed. A dressing was applied. The patient tolerated procedure well. COMPARISON: None. FINDINGS: Initial images demonstrate the tip of the needle at the posterior margin of the lower pole of the le ft kidney. Post biopsy images demonstrate a moderate hematoma posterior to the inferior pole of the left kidney measuring approximately 5.5 x 2.8 cm, in and no other immediate complication. The Gelfoam is noted in the biopsy tract. IMPRESSION: 1. Successful CT guided biopsy of the left kidney for medical renal disease. RPTAT: QQ .Stew Garcia MD, Date Time Electronically viewed and signed by .Stew Garcia MD, on 05/13/2016 12:53 .R/
--- NOTE | 2016-05-13 13:03 | CONS ---
Date/Time of Note Date/Time of Note DATE: 05/13/16 TIME: 12:58 Consult Date/Type/Reason Admit Date/Time May 10, 2016 at 17:57 Initial Consult Date May 12 2016 Reason for Consultation Systemic lupus erythematosus with glomerulonephritis Subjective Patient has had the biopsy of the left kidney this morning without complications lying in bed and appears comfortable denies new complaints. Has already received prednisone 60 mg in the CellCept 500 mg. Objective Vital Signs Date Time Temp Pulse Resp B/P Pulse Ox O2 Delivery O2 Flow Rate FiO2 05/13/16 11:15 60 18 111/71 05/13/16 10:40 98.3 05/13/16 08:13 98 05/10/16 18:40 Room Air Intake and Output 05/12/16 05/12/16 05/13/16 15:00 23:00 07:00 Intake Total 1650 ml 1080 ml Output Total 1200 ml 2180 ml Balance 450 ml -1100 ml Results/Medications Result Diagram: 05/13/16 0415 05/13/16 0415 Results 24 hrs Laboratory Tests Test 05/13/16 04:15 Anion Gap 16 Anisocytosis 1+ Band Neutrophils % 1.0 Blood Morphology Comment Blood Urea Nitrogen 49 H Calcium Level 8.1 L Carbon Dioxide Level 21 Chloride Level 111 H Clumped Platelets RARE Creatinine 1.45 H Giant Platelets 1+ Glucose Level 154 Hematocrit 28.5 L Hemoglobin 9.6 L Hypochromasia 2+ Lymphocytes # 0.6 L Lymphocytes % 18.0 Magnesium Level 2.5 Mean Corpuscular Hemoglobin 25.9 L Mean Corpuscular Hemoglobin Concent 33.9 Mean Corpuscular Volume 76.4 L Mean Platelet Volume 11.1 H Microcytosis 2+ Monocytes # 0.1 L Monocytes % 2.0 Neutrophils # 2.8 Neutrophils % 79.0 H Phosphorus Level 4.7 Platelet Count 167 # Potassium Level 4.5 Red Blood Count 3.73 L Red Cell Distribution Width 16.7 H Sodium Level 143 White Blood Count 3.5 #L Medications Current Medications Ondansetron HCl (Zofran Inj) 4 mg Q6H PRN IV NAUSEA AND/OR VOMITING; Start at 19:30 Acetaminophen (Tylenol Tab) 650 mg Q6H PRN PO PAIN LEVEL 1-3 OR FEVER Last administered on 05/10/16t 20:37; Admin Dose 650 MG; Start 05/10/16 at 19:30 Acetaminophen/ Hydrocodone Bitart ([place] (5/325)) 1 tab Q6H PRN PO MODERATE PAIN LEVEL 4-6; Start 05/10/16 at 19:30 Morphine Sulfate (morphine) 2 mg Q4H PRN IV SEVERE PAIN LEVEL 7-10; Start 05/10 at 19:30 Docusate Sodium (Colace) 100 mg Q12H PRN PO CONSTIPATION; Start 05/10/16 at 19: 30 Zolpidem Tartrate 5 mg 5 mg QHS PRN PO SLEEP; Start 05/10/16 at 19:30 Sodium Chloride (NS) 1,000 ml @ 50 mls/hr Q20H IV Last administered on 10:50; Admin Dose 50 MLS/HR; Start 05/12/16 at 11:30 Prednisone (Prednisone) 60 mg DAILY PO Last administered on 05/13/16 10:50; Admin Dose 60 MG; Start 05/13/16 at 09:00 Mycophenolate Mofetil (Cellcept) 500 mg BID PO Last administered on 05/13/16 10:50; Admin Dose 500 MG; Start 05/12/16 at 21:00 Assessment/Plan Chief Complaint/Hosp Course 1. Systemic lupus erythematosus active with positive RINKU and highly positive double-stranded DNA as well as low complement and renal insufficiency and malar rash. Symptomatically has improved on the steroids 2. Glomerulonephritis status post left renal biopsy with morning. Patient has been started on prednisone 60 mg per day and CellCept 500 mg twice daily. He has previously received 3 consecutive doses of 1 g Solu-Medrol. 3. Leukopenia somewhat improved likely secondary to the steroids. 4. Anemia 5. Renal insufficiency with slight improvement creatinine 1.45. Plan continue prednisone at 60 mg daily and CellCept 500 mg twice daily for now Awaiting renal biopsy results. Problems: ARIEL TAYLOR MD May 13, 2016 13:03
--- NOTE | 2016-05-13 14:08 | PN ---
Date/Time of Note Date/Time of Note DATE: 05/13/16 TIME: 14:04 Assessment/Plan VTE Prophylaxis VTE Prophylaxis Intervention: SCD's Lines/Catheters IV [facility]from [facility] Peripheral IV Urinary Cath still in place: No Assessment/Plan Chief Complaint/Hosp Course 1. Diffuse body pain and weakness secondary to lupus -s/p steroid pulses -Rheum consult appreciated, started on Prednisone and Cellcept 2. Acute kidney injury possibly secondary to lupus nephritis -Nephrology consultation appreciated, continue steroid pulses, renal Bx done today 3. Abdominal pain secondary to pancreatitis-improved -Etiology is not clear at this time -check Lipase in AM 4. Pancytopenia. The patient is leukopenic, anemic, and thrombocytopenic. Cause is likely from underlying lupus, possibly from liver disease from his history of drinking -Follow-up on hepatitis panel and ultrasound of the abdomen to evaluate the liver 5. Prophylaxis. SCDs. Problems: Subjective 24 Hr Interval Summary Constitutional: no complaints Exam/Review of Systems Vital Signs Vitals Vital Signs Date Time Temp Pulse Resp B/P Pulse Ox O2 Delivery O2 Flow Rate FiO2 05/13/16 11:15 60 18 111/71 05/13/16 10:40 98.3 05/13/16 08:13 98 05/10/16 18:40 Room Air Intake and Output 05/12/16 05/12/16 05/13/16 15:00 23:00 07:00 Intake Total 1650 ml 1080 ml Output Total 1200 ml 2180 ml Balance 450 ml -1100 ml Exam Constitutional: alert, oriented Respiratory: clear to auscultation Cardiovascular: regular rate and rhythm Gastrointestinal: soft, No distended Musculoskeletal: nl extremities to inspection Results Result Diagram: 05/13/16 0415 05/13/16 0415 Results 24 hrs Laboratory Tests Test 05/13/16 04:15 Anion Gap 16 Anisocytosis 1+ Band Neutrophils % 1.0 Blood Morphology Comment Blood Urea Nitrogen 49 H Calcium Level 8.1 L Carbon Dioxide Level 21 Chloride Level 111 H Clumped Platelets RARE Creatinine 1.45 H Giant Platelets 1+ Glucose Level 154 Hematocrit 28.5 L Hemoglobin 9.6 L Hypochromasia 2+ Lymphocytes # 0.6 L Lymphocytes % 18.0 Magnesium Level 2.5 Mean Corpuscular Hemoglobin 25.9 L Mean Corpuscular Hemoglobin Concent 33.9 Mean Corpuscular Volume 76.4 L Mean Platelet Volume 11.1 H Microcytosis 2+ Monocytes # 0.1 L Monocytes % 2.0 Neutrophils # 2.8 Neutrophils % 79.0 H Phosphorus Level 4.7 Platelet Count 167 # Potassium Level 4.5 Red Blood Count 3.73 L Red Cell Distribution Width 16.7 H Sodium Level 143 White Blood Count 3.5 #L Medications Medications Current Medications Ondansetron HCl (Zofran Inj) 4 mg Q6H PRN IV NAUSEA AND/OR VOMITING; Start at 19:30 Acetaminophen (Tylenol Tab) 650 mg Q6H PRN PO PAIN LEVEL 1-3 OR FEVER Last administered on 05/10/16 20:37; Admin Dose 650 MG; Start 05/10/16 at 19:30 Acetaminophen/ Hydrocodone Bitart ([place] (5/325)) 1 tab Q6H PRN PO MODERATE PAIN LEVEL 4-6; Start 05/10/16 at 19:30 Morphine Sulfate (morphine) 2 mg Q4H PRN IV SEVERE PAIN LEVEL 7-10; Start 05/10 at 19:30 Docusate Sodium (Colace) 100 mg Q12H PRN PO CONSTIPATION; Start 05/10/16 at 19: 30 Zolpidem Tartrate 5 mg 5 mg QHS PRN PO SLEEP; Start 05/10/16 at 19:30 Sodium Chloride (NS) 1,000 ml @ 50 mls/hr Q20H IV Last administered on 10:50; Admin Dose 50 MLS/HR; Start 05/12/16 at 11:30 Prednisone (Prednisone) 60 mg DAILY PO Last administered on 05/13/16 10:50; Admin Dose 60 MG; Start 05/13/16 at 09:00 Mycophenolate Mofetil (Cellcept) 500 mg BID PO Last administered on 05/13/16 10:50; Admin Dose 500 MG; Start 05/12/16 at 21:00 BABAR SANCHEZ May 13, 2016 14:08
[2016-05-13 17:31] LABS: MICROALBUMIN 37.7 mg/dL
[2016-05-13 19:17] VITALS: BP 108/69; RESP 20
[2016-05-14 05:32] LABS: HEMATOCRIT 26.9 % (42.0-52.0); MEAN CORPUSCULAR HEMOGLOBIN 25.5 pg (29.0-33.0); MEAN CORPUSCULAR HGB CONC 33.5 g/dl (32.0-37.0); MEAN CORPUSCULAR VOLUME 76.1 fl (82.0-101.0); MEAN PLATELET VOLUME 10.6 fl (7.4-10.4); PLATELET COUNT 174 10^3/UL (140-440); RED BLOOD COUNT 3.54 10^6/ul (4.70-6.10); RED CELL DISTRIBUTION WIDTH 16.8 % (11.5-14.5); UNCORRECTED WBC 4.2 10^3/ul (4.8-10.8); WHITE BLOOD COUNT 4.2 10^3/ul (4.8-10.8)
[2016-05-14 05:52] LABS: CONDITION 1; LH ANALYZER COMMENTS 1
[2016-05-14 05:57] LABS: POTASSIUM 4.7 mmol/L (3.5-5.1)
[2016-05-14 06:00] LABS: CALCIUM 7.9 mg/dl (8.4-10.2); CREATININE 1.18 mg/dl (0.61-1.24)
[2016-05-14 06:01] LABS: MAGNESIUM 2.3 mg/dl (1.7-2.5)
[2016-05-14 07:36] VITALS: BP 118/73; RESP 17
[2016-05-14] MEDS: SOD CHLORIDE 0.9% 1,000 ML IV SCH (08:24)
[2016-05-14] MEDS: predniSONE 20 MG TAB PO SCH (09:07)
[2016-05-14] MEDS: MYCOPHENOLATE 250 MG CAP PO SCH ×2 (09:07→20:35)
[2016-05-14 09:30] VITALS: BP 119/76; PULSE 76; RESP 20
--- NOTE | 2016-05-14 09:38 | PN ---
DATE: 05/14/2016 SUBJECTIVE: Yesterday, the patient had a renal biopsy, tolerated it well. There has been no flank pain, no hematuria, no hemodynamic instability. The patient is clinically feeling better, less arthralgia, myalgia. No other events noted. OBJECTIVE: VITAL SIGNS: Blood pressure 119/73, respirations are 17, pulse 58, temperature 97.9. HEENT: Head is normocephalic. NECK: Supple. HEART: Regular rate. LUNGS: Show diminished breath sounds at the base. ABDOMEN: Soft, nontender to palpation. No rebound or guarding. EXTREMITIES: Negative for clubbing, cyanosis, no edema. MUSCULOSKELETAL: No joint effusions. NEUROLOGIC: No focal deficits. DERMATOLOGIC: The patient has a mild rash on his face. No new rashes noted. LABORATORY DATA: The patient has sodium 143, potassium 4.7, chloride 115, BUN 42, creatinine 1.18. White count 4.2, hemoglobin 9.0, hematocrit 26.9, platelet count is 174. ASSESSMENT AND PLAN: 1. Nonoliguric acute kidney injury with unknown baseline creatinine. 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 The patient's u/a was active with noted proteinuria, hematuria, granular casts, and dysmorphic cells on microscopy. The patient is status post renal biopsy yesterday without any complications. Plan at this point is to continue current medical management with prednisone, CellCept. The patient's renal function has been improving with medical management and IV hydration. We will follow with renal biopsy. Otherwise, continue current treatment plan, supportive care, renally dose all meds, avoid nephrotoxins. 2. Lupus erythematosus. The patient seen by rheumatology. Currently on CellCept and prednisone. Continue. 3. Hypernatremia, resolved. 4. Mineral bone disorder. Continue to monitor calcium and phosphorus levels. 5. Leukopenia secondary to lupus, improving. Continue to monitor. 6. Abdominal pain, resolving. 7. General debility. Dictated By: ISMAEL WALL/CURT Conf#: [id number] DID#: [id number] MTDD
[2016-05-14 09:48] LABS: LYMPHOCYTES # 0.3 10^3/ul (0.8-2.9); MONOCYTE # 0.3 10^3/ul (0.3-0.9); NEUTROPHIL # 3.3 10^3/ul (1.6-7.5)
[2016-05-14 09:49] LABS: OVALOCYTES 1+
--- NOTE | 2016-05-14 14:17 | CONS ---
Date/Time of Note Date/Time of Note DATE: 05/14/16 TIME: 14:08 Consult Date/Type/Reason Admit Date/Time May 10, 2016 at 17:57 Initial Consult Date May 12 2016 Reason for Consultation Systemic lupus erythematosus with glomerulonephritis Subjective No new complaints feeling better overall. Rash decreasing Objective Alert oriented 3 Skin with faint rash to face Chest clear to auscultation. Heart regular rhythm Laboratory Tests Test 05/14/16 04:35 05/14/16 11:20 Anion Gap 13 Band Neutrophils % 4.0% Blood Morphology Comment Blood Urea Nitrogen 42mg/dl Calcium Level 7.9mg/dl Carbon Dioxide Level 20mmol/L Chloride Level 115mmol/L Creatinine 1.18mg/dl Eosinophils # 0.010^3/ul Eosinophils % 1.0% Glucose Level 123mg/dl Hematocrit 26.9% Hemoglobin 9.0g/dl Lymphocytes # 0.310^3/ul Lymphocytes % 8.0% Magnesium Level 2.3mg/dl Mean Corpuscular Hemoglobin 25.5pg Mean Corpuscular Hemoglobin Concent 33.5g/dl Mean Corpuscular Volume 76.1fl Mean Platelet Volume 10.6fl Monocytes # 0.310^3/ul Monocytes % 8.0% Neutrophils # 3.310^3/ul Neutrophils % 79.0% Ovalocytes 1+ Phosphorus Level 4.0mg/dl Platelet Count 60963^3/UL Potassium Level 4.7mmol/L Red Blood Count 3.5410^6/ul Red Cell Distribution Width 16.8% Sodium Level 143mmol/L White Blood Count 4.210^3/ul Lab Scanned Report REFERENCE [id number] Current Medications Medications (Trade) Dose Ordered Sig/Low Route PRN Reason Start Time Stop Time Status Last Admin Dose Admin Sodium Chloride (NS) 1,000 ml @ 1,000 mls/hr Q1H STAT IV 05/10/16 15:29 05/10/16 16:28 DC 05/10/16 16:07 1,000 MLS/HR Ondansetron HCl (Zofran Inj) 4 mg ONCE STAT IV 05/10/16 15:29 05/10/16 15:34 DC 05/10/16 16:07 4 MG Morphine Sulfate (morphine) 4 mg ONCE STAT IV 05/10/16 15:29 05/10/16 15:34 DC 05/10/16 16:07 4 MG IV Flush (NS 3 ml) 3 ml PER PROTOCOL IV 05/10/16 19:30 Ondansetron HCl (Zofran Inj) 4 mg Q6H PRN IV NAUSEA AND/OR VOMITING 05/10/16 19:30 Acetaminophen (Tylenol Tab) 650 mg Q6H PRN PO PAIN LEVEL 1-3 OR FEVER 05/10/16 19:30 05/10/16 20:37 650 MG Acetaminophen/ Hydrocodone Bitart ([place] (5/325)) 1 tab Q6H PRN PO MODERATE PAIN LEVEL 4-6 05/10/16 19:30 Morphine Sulfate (morphine) 2 mg Q4H PRN IV SEVERE PAIN LEVEL 7-10 05/10/16 19:30 Docusate Sodium (Colace) 100 mg Q12H PRN PO CONSTIPATION 05/10/16 19:30 Zolpidem Tartrate 5 mg 5 mg QHS PRN PO SLEEP 05/10/16 19:30 Methylprednisolone Sodium Succinate/ Dextrose (Solu-Medrol/D5W) 50 ml @ 100 mls/hr Q24H IVPB 05/10/16 21:00 05/12/16 21:29 DC 05/12/16 22:40 100 MLS/HR Vitamin A/Vitamin D 1 applic 1 applic STK-MED ONCE TOP 05/11/16 20:42 05/11/16 20:43 DC Sodium Chloride (NS) 1,000 ml @ 50 mls/hr Q20H IV 05/12/16 11:30 05/14/16 08:24 50 MLS/HR Prednisone (Prednisone) 60 mg DAILY PO 05/13/16 09:00 05/14/16 09:07 60 MG Mycophenolate Mofetil (Cellcept) 500 mg BID PO 05/12/16 21:00 05/14/16 09:07 500 MG Vitamin A/Vitamin D (Vitamin A & D Oint) 1 applic STK-MED ONCE TOP 05/12/16 21:04 05/12/16 21:05 DC Lidocaine (Xylocaine 1% (Mdv) 20 ml) 20 ml STK-MED ONCE .ROUTE 05/13/16 08:20 05/13/16 08:21 DC Midazolam HCl (Versed) 2 mg STK-MED ONCE .ROUTE 05/13/16 08:20 05/13/16 08:21 DC 05/13/16 09:25 2 MG Fentanyl (Sublimaze) 100 mcg STK-MED ONCE .ROUTE 05/13/16 08:21 05/13/16 08:22 DC 05/13/16 09:30 100 MCG Diphenhydramine HCl (Benadryl) 50 mg STK-MED ONCE .ROUTE 05/13/16 08:21 05/13/16 08:22 DC 05/13/16 09:25 50 MG Gelatin (Gelfoam) 1 sponge STK-MED ONCE .ROUTE 05/13/16 09:01 05/13/16 09:02 DC Musculoskeletal without cyanosis Vital Signs Date Time Temp Pulse Resp B/P Pulse Ox O2 Delivery O2 Flow Rate FiO2 05/14/16 09:30 98.7 76 20 119/76 99 Room Air Nasal Cannula 05/12/16 10:00 3 Intake and Output 05/13/16 05/13/16 05/14/16 15:00 23:00 07:00 Intake Total 1800 ml 1550 ml Output Total 800 ml 800 ml Balance 1000 ml 750 ml Results/Medications Result Diagram: 05/14/16 0435 05/14/16 0435 Results 24 hrs Laboratory Tests Test 05/14/16 04:35 05/14/16 11:20 Anion Gap 13 Band Neutrophils % 4.0 Blood Morphology Comment Blood Urea Nitrogen 42 H Calcium Level 7.9 L Carbon Dioxide Level 20 L Chloride Level 115 H Creatinine 1.18 Eosinophils # 0.0 Eosinophils % 1.0 Glucose Level 123 Hematocrit 26.9 L Hemoglobin 9.0 L Lymphocytes # 0.3 L Lymphocytes % 8.0 L Magnesium Level 2.3 Mean Corpuscular Hemoglobin 25.5 L Mean Corpuscular Hemoglobin Concent 33.5 Mean Corpuscular Volume 76.1 L Mean Platelet Volume 10.6 H Monocytes # 0.3 Monocytes % 8.0 Neutrophils # 3.3 Neutrophils % 79.0 H Ovalocytes 1+ Phosphorus Level 4.0 Platelet Count 174 Potassium Level 4.7 Red Blood Count 3.54 L Red Cell Distribution Width 16.8 H Sodium Level 143 White Blood Count 4.2 L Lab Scanned Report REFERENCE LAB Medications Current Medications Ondansetron HCl (Zofran Inj) 4 mg Q6H PRN IV NAUSEA AND/OR VOMITING; Start at 19:30 Acetaminophen (Tylenol Tab) 650 mg Q6H PRN PO PAIN LEVEL 1-3 OR FEVER Last administered on 05/10/16 20:37; Admin Dose 650 MG; Start 05/10/16 at 19:30 Acetaminophen/ Hydrocodone Bitart ([place] (5/325)) 1 tab Q6H PRN PO MODERATE PAIN LEVEL 4-6; Start 05/10/16 at 19:30 Morphine Sulfate (morphine) 2 mg Q4H PRN IV SEVERE PAIN LEVEL 7-10; Start 05/10 at 19:30 Docusate Sodium (Colace) 100 mg Q12H PRN PO CONSTIPATION; Start 05/10/16 at 19: 30 Zolpidem Tartrate 5 mg 5 mg QHS PRN PO SLEEP; Start 05/10/16 at 19:30 Sodium Chloride (NS) 1,000 ml @ 50 mls/hr Q20H IV Last administered on 08:24; Admin Dose 50 MLS/HR; Start 05/12/16 at 11:30 Prednisone (Prednisone) 60 mg DAILY PO Last administered on 05/14/16 09:07; Admin Dose 60 MG; Start 05/13/16 at 09:00 Mycophenolate Mofetil (Cellcept) 500 mg BID PO Last administered on 05/14/16 09:07; Admin Dose 500 MG; Start 05/12/16 at 21:00 Assessment/Plan Chief Complaint/Hosp Course 1. Systemic lupus erythematosus active with positive RINKU and highly positive double-stranded DNA as well as low complement and renal insufficiency and malar rash. Symptomatically has improved on the steroids 2. Glomerulonephritis status post left renal biopsy with morning. Patient on prednisone 60 mg per day and CellCept 500 mg twice daily. 3. Leukopenia somewhat improved likely secondary to the steroids. 4. Anemia 5. Renal insufficiency with improvement. Creat decreased to1.18 Plan 1. Continue prednisone at 60 mg daily and CellCept 500 mg twice daily for now 2. Awaiting renal biopsy results. Problems: ARIEL TAYLOR MD May 14, 2016 14:17
--- NOTE | 2016-05-14 14:58 | PN ---
Date/Time of Note Date/Time of Note DATE: 05/14/16 TIME: 14:56 Assessment/Plan VTE Prophylaxis VTE Prophylaxis Intervention: SCD's Lines/Catheters IV Catheter Type (from [facility]): Peripheral IV Urinary Cath still in place: No Assessment/Plan Chief Complaint/Hosp Course 1. Diffuse body pain and weakness secondary to lupus -s/p steroid pulses -Rheum consult appreciated, cont Prednisone and Cellcept 2. Acute kidney injury possibly secondary to lupus nephritis -Nephrology consultation appreciated, s/p steroid pulses, renal Bx done and results pending 3. Abdominal pain secondary to pancreatitis-improved -Etiology is not clear at this time -check Lipase in AM 4. Pancytopenia. The patient is leukopenic, anemic, and thrombocytopenic. Cause is likely from underlying lupus, possibly from liver disease from his history of drinking -Follow-up on hepatitis panel and ultrasound of the abdomen to evaluate the liver 5. Prophylaxis. SCDs. Problems: Subjective 24 Hr Interval Summary Constitutional: no complaints Exam/Review of Systems Vital Signs Vitals Vital Signs Date Time Temp Pulse Resp B/P Pulse Ox O2 Delivery O2 Flow Rate FiO2 05/14/16 09:30 98.7 76 20 119/76 99 Room Air Nasal Cannula 05/12/16 10:00 3 Intake and Output 05/13/16 05/13/16 05/14/16 15:00 23:00 07:00 Intake Total 1800 ml 1550 ml Output Total 800 ml 800 ml Balance 1000 ml 750 ml Exam Constitutional: alert, oriented Respiratory: clear to auscultation Cardiovascular: regular rate and rhythm Gastrointestinal: soft, No distended Musculoskeletal: nl extremities to inspection Results Result Diagram: 05/14/16 0435 05/14/16 0435 Results 24 hrs Laboratory Tests Test 05/14/16 04:35 05/14/16 11:20 Anion Gap 13 Band Neutrophils % 4.0 Blood Morphology Comment Blood Urea Nitrogen 42 H Calcium Level 7.9 L Carbon Dioxide Level 20 L Chloride Level 115 H Creatinine 1.18 Eosinophils # 0.0 Eosinophils % 1.0 Glucose Level 123 Hematocrit 26.9 L Hemoglobin 9.0 L Lymphocytes # 0.3 L Lymphocytes % 8.0 L Magnesium Level 2.3 Mean Corpuscular Hemoglobin 25.5 L Mean Corpuscular Hemoglobin Concent 33.5 Mean Corpuscular Volume 76.1 L Mean Platelet Volume 10.6 H Monocytes # 0.3 Monocytes % 8.0 Neutrophils # 3.3 Neutrophils % 79.0 H Ovalocytes 1+ Phosphorus Level 4.0 Platelet Count 174 Potassium Level 4.7 Red Blood Count 3.54 L Red Cell Distribution Width 16.8 H Sodium Level 143 White Blood Count 4.2 L Lab Scanned Report REFERENCE LAB Medications Medications Current Medications Ondansetron HCl (Zofran Inj) 4 mg Q6H PRN IV NAUSEA AND/OR VOMITING; Start at 19:30 Acetaminophen (Tylenol Tab) 650 mg Q6H PRN PO PAIN LEVEL 1-3 OR FEVER Last administered on 05/10/16 20:37; Admin Dose 650 MG; Start 05/10/16 at 19:30 Acetaminophen/ Hydrocodone Bitart ([place] (5/325)) 1 tab Q6H PRN PO MODERATE PAIN LEVEL 4-6; Start 05/10/16 at 19:30 Morphine Sulfate (morphine) 2 mg Q4H PRN IV SEVERE PAIN LEVEL 7-10; Start 05/10 at 19:30 Docusate Sodium (Colace) 100 mg Q12H PRN PO CONSTIPATION; Start 05/10/16 at 19: 30 Zolpidem Tartrate 5 mg 5 mg QHS PRN PO SLEEP; Start 05/10/16 at 19:30 Sodium Chloride (NS) 1,000 ml @ 50 mls/hr Q20H IV Last administered on 08:24; Admin Dose 50 MLS/HR; Start 05/12/16 at 11:30 Prednisone (Prednisone) 60 mg DAILY PO Last administered on 05/14/16 09:07; Admin Dose 60 MG; Start 05/13/16 at 09:00 Mycophenolate Mofetil (Cellcept) 500 mg BID PO Last administered on 05/14/16 09:07; Admin Dose 500 MG; Start 05/12/16 at 21:00 BABAR SANCHEZ May 14, 2016 14:57
[2016-05-14 19:14] VITALS: BP 131/86; RESP 20
[2016-05-15 05:37] LABS: EOSINOPHILS % 0.1 % (0.0-7.0); HEMATOCRIT 25.5 % (42.0-52.0); HEMOGLOBIN 8.8 g/dl (14.0-18.0); LYMPHOCYTES # 0.5 10^3/ul (0.8-2.9); LYMPHOCYTES % 10.4 % (15.0-51.0); MEAN CORPUSCULAR HEMOGLOBIN 26.1 pg (29.0-33.0); MEAN CORPUSCULAR HGB CONC 34.3 g/dl (32.0-37.0); MEAN CORPUSCULAR VOLUME 76.1 fl (82.0-101.0); MEAN PLATELET VOLUME 10.2 fl (7.4-10.4); MONOCYTE # 0.8 10^3/ul (0.3-0.9); MONOCYTES % 16.8 % (0.0-11.0); NEUTROPHIL # 3.3 10^3/ul (1.6-7.5); NEUTROPHILS % 72.7 % (39.0-77.0); PLATELET COUNT 182 10^3/UL (140-440); RED BLOOD COUNT 3.36 10^6/ul (4.70-6.10); RED CELL DISTRIBUTION WIDTH 16.6 % (11.5-14.5); WHITE BLOOD COUNT 4.6 10^3/ul (4.8-10.8)
[2016-05-15 06:03] LABS: POTASSIUM 4.4 mmol/L (3.5-5.1)
[2016-05-15 06:05] LABS: CREATININE 0.97 mg/dl (0.61-1.24)
[2016-05-15 06:06] LABS: CALCIUM 8.2 mg/dl (8.4-10.2); MAGNESIUM 2.2 mg/dl (1.7-2.5); PHOSPHORUS 3.2 mg/dl (2.5-4.9)
[2016-05-15 06:07] LABS: CONDITION 1; LH ANALYZER COMMENTS 1; NUCLEATED RED BLOOD CELLS # 0.1 10^3/ul (0.0-0.0); SUSPECT 1; UNCORRECTED WBC 4.9 10^3/ul (4.8-10.8)
[2016-05-15 07:19] VITALS: BP 123/81; RESP 18
[2016-05-15] MEDS: MYCOPHENOLATE 250 MG CAP PO SCH ×2 (08:12→21:24)
[2016-05-15] MEDS: predniSONE 20 MG TAB PO SCH (09:11)
--- NOTE | 2016-05-15 12:48 | PN ---
Date/Time of Note Date/Time of Note DATE: 05/15/16 TIME: 12:47 Assessment/Plan VTE Prophylaxis VTE Prophylaxis Intervention: SCD's Lines/Catheters IV Catheter Type (from [facility]): Peripheral IV Urinary Cath still in place: No Assessment/Plan Chief Complaint/Hosp Course 1. Diffuse body pain and weakness secondary to lupus -s/p steroid pulses -Rheum consult appreciated, cont Prednisone and Cellcept 2. Acute kidney injury possibly secondary to lupus nephritis -Nephrology consultation appreciated, s/p steroid pulses, renal Bx done and results pending 3. Abdominal pain secondary to pancreatitis-improved -Etiology is not clear at this time -check Lipase in AM 4. Pancytopenia. The patient is leukopenic, anemic, and thrombocytopenic. Cause is likely from underlying lupus, possibly from liver disease from his history of drinking -Follow-up on hepatitis panel and ultrasound of the abdomen to evaluate the liver 5. B/L Foot pain with Hx of Foot Fx's -Xray of both feet Prophylaxis. SCDs. Problems: Subjective 24 Hr Interval Summary Musculoskeletal: bone/joint pain Exam/Review of Systems Vital Signs Vitals Vital Signs Date Time Temp Pulse Resp B/P Pulse Ox O2 Delivery O2 Flow Rate FiO2 05/15/16 07:19 97.8 75 18 123/81 97 05/14/16 09:30 Room Air Nasal Cannula 05/12/16 10:00 3 Intake and Output 05/14/16 05/14/16 05/15/16 15:00 23:00 07:00 Intake Total 2000 ml 1600 ml Output Total 1800 ml 1500 ml Balance 200 ml 100 ml Exam Constitutional: alert, oriented Respiratory: clear to auscultation Cardiovascular: regular rate and rhythm Gastrointestinal: soft, No distended Musculoskeletal: nl extremities to inspection Results Result Diagram: 05/15/16 0440 05/15/16 0440 Results 24 hrs Laboratory Tests Test 05/15/16 04:40 Anion Gap 10 Basophils # 0.0 Basophils % 0.0 Blood Morphology Comment Blood Urea Nitrogen 33 H Calcium Level 8.2 L Carbon Dioxide Level 20 L Chloride Level 117 H Creatinine 0.97 Eosinophils # 0.0 Eosinophils % 0.1 Glucose Level 105 Hematocrit 25.5 L Hemoglobin 8.8 L Lipase 250 Lymphocytes # 0.5 L Lymphocytes % 10.4 L Magnesium Level 2.2 Mean Corpuscular Hemoglobin 26.1 L Mean Corpuscular Hemoglobin Concent 34.3 Mean Corpuscular Volume 76.1 L Mean Platelet Volume 10.2 Monocytes # 0.8 Monocytes % 16.8 H Neutrophils # 3.3 Neutrophils % 72.7 Nucleated Red Blood Cells # 0.1 H Nucleated Red Blood Cells % 2.0 H Phosphorus Level 3.2 Platelet Count 182 Potassium Level 4.4 Red Blood Count 3.36 L Red Cell Distribution Width 16.6 H Sodium Level 143 White Blood Count 4.6 L Medications Medications Current Medications Ondansetron HCl (Zofran Inj) 4 mg Q6H PRN IV NAUSEA AND/OR VOMITING; Start at 19:30 Acetaminophen (Tylenol Tab) 650 mg Q6H PRN PO PAIN LEVEL 1-3 OR FEVER Last administered on 05/10/16 20:37; Admin Dose 650 MG; Start 05/10/16 at 19:30 Acetaminophen/ Hydrocodone Bitart ([place] (5/325)) 1 tab Q6H PRN PO MODERATE PAIN LEVEL 4-6; Start 05/10/16 at 19:30 Morphine Sulfate (morphine) 2 mg Q4H PRN IV SEVERE PAIN LEVEL 7-10; Start 05/10 at 19:30 Docusate Sodium (Colace) 100 mg Q12H PRN PO CONSTIPATION; Start 05/10/16 at 19: 30 Zolpidem Tartrate 5 mg 5 mg QHS PRN PO SLEEP; Start 05/10/16 at 19:30 Sodium Chloride (NS) 1,000 ml @ 50 mls/hr Q20H IV Last administered on 08:24; Admin Dose 50 MLS/HR; Start 05/12/16 at 11:30 Prednisone (Prednisone) 60 mg DAILY PO Last administered on 05/15/16 09:11; Admin Dose 60 MG; Start 05/13/16 at 09:00 Mycophenolate Mofetil (Cellcept) 500 mg BID PO Last administered on 05/15/16 08:12; Admin Dose 500 MG; Start 05/12/16 at 21:00 BABAR SANCHEZ May 15, 2016 12:48
[2016-05-15] MEDS: SOD CHLORIDE 0.9% 1,000 ML IV SCH (16:38)
--- NOTE | 2016-05-15 18:17 | CONS ---
Date/Time of Note Date/Time of Note DATE: 05/15/16 TIME: 18:13 Consult Date/Type/Reason Admit Date/Time May 10, 2016 at 17:57 Initial Consult Date May 12 2016 Subjective Continuous feeling better. No new complaints. Objective Alert oriented 3 no acute distress Skin. Rash fainter Chest clear to auscultation Heart regular rhythm Abdomen soft without tenderness Musculoskeletal exam without synovitis Vital Signs Date Time Temp Pulse Resp B/P Pulse Ox O2 Delivery O2 Flow Rate FiO2 05/15/16 07:19 97.8 75 18 123/81 97 05/14/16 09:30 Room Air Nasal Cannula 05/12/16 10:00 3 Intake and Output 05/14/16 05/14/16 05/15/16 15:00 23:00 07:00 Intake Total 2000 ml 1600 ml Output Total 1800 ml 1500 ml Balance 200 ml 100 ml Results/Medications Result Diagram: 05/15/16 0440 05/15/16 0440 Results 24 hrs Laboratory Tests Test 05/15/16 04:40 Anion Gap 10 Basophils # 0.0 Basophils % 0.0 Blood Morphology Comment Blood Urea Nitrogen 33 H Calcium Level 8.2 L Carbon Dioxide Level 20 L Chloride Level 117 H Creatinine 0.97 Eosinophils # 0.0 Eosinophils % 0.1 Glucose Level 105 Hematocrit 25.5 L Hemoglobin 8.8 L Lipase 250 Lymphocytes # 0.5 L Lymphocytes % 10.4 L Magnesium Level 2.2 Mean Corpuscular Hemoglobin 26.1 L Mean Corpuscular Hemoglobin Concent 34.3 Mean Corpuscular Volume 76.1 L Mean Platelet Volume 10.2 Monocytes # 0.8 Monocytes % 16.8 H Neutrophils # 3.3 Neutrophils % 72.7 Nucleated Red Blood Cells # 0.1 H Nucleated Red Blood Cells % 2.0 H Phosphorus Level 3.2 Platelet Count 182 Potassium Level 4.4 Red Blood Count 3.36 L Red Cell Distribution Width 16.6 H Sodium Level 143 White Blood Count 4.6 L Medications Current Medications Ondansetron HCl (Zofran Inj) 4 mg Q6H PRN IV NAUSEA AND/OR VOMITING; Start at 19:30 Acetaminophen (Tylenol Tab) 650 mg Q6H PRN PO PAIN LEVEL 1-3 OR FEVER Last administered on 05/10/16t 20:37; Admin Dose 650 MG; Start 05/10/16 at 19:30 Acetaminophen/ Hydrocodone Bitart ([place] (5/325)) 1 tab Q6H PRN PO MODERATE PAIN LEVEL 4-6; Start 05/10/16 at 19:30 Morphine Sulfate (morphine) 2 mg Q4H PRN IV SEVERE PAIN LEVEL 7-10; Start 05/10 at 19:30 Docusate Sodium (Colace) 100 mg Q12H PRN PO CONSTIPATION; Start 05/10/16 at 19: 30 Zolpidem Tartrate 5 mg 5 mg QHS PRN PO SLEEP; Start 05/10/16 at 19:30 Sodium Chloride (NS) 1,000 ml @ 50 mls/hr Q20H IV Last administered on 16:38; Admin Dose 50 MLS/HR; Start 05/12/16 at 11:30 Prednisone (Prednisone) 60 mg DAILY PO Last administered on 05/15/16 09:11; Admin Dose 60 MG; Start 05/13/16 at 09:00 Mycophenolate Mofetil (Cellcept) 500 mg BID PO Last administered on 05/15/16 08:12; Admin Dose 500 MG; Start 05/12/16 at 21:00 Assessment/Plan Chief Complaint/Hosp Course 1. Systemic lupus erythematosus active with positive RINKU and highly positive double-stranded DNA as well as low complement and renal insufficiency and malar rash. Symptomatically has improved on the steroids 2. Glomerulonephritis status post left renal biopsy with morning. Patient on prednisone 60 mg per day and CellCept 500 mg twice daily. 3. Leukopenia improved on steroids. 4. Anemia 5. Renal insufficiency with improvement. Creat decreased to 0.97 Plan 1. Continue prednisone at 60 mg daily and CellCept 500 mg twice daily for now 2. Awaiting renal biopsy results. Problems: ARIEL TAYLOR MD May 15, 2016 18:17
[2016-05-15 20:32] VITALS: BP 140/91; RESP 18
[2016-05-15] MEDS ORDERED: VITAMIN A & D 5 GM OINT PACKET TOP ONE (21:22)
--- NOTE | 2016-05-15 23:30 | RADRPT ---
PROCEDURE: XR Foot Bilateral. CLINICAL INDICATION: Clinical presentation of foot pain with suspected bilateral foot fractures. TECHNIQUE: AP, lateral and oblique views of the bilateral feet were obtained. The images were rev iewed on a PACS workstation. COMPARISON: None. FINDINGS: Right foot: Reference markers at the medial midfoot and plantar and midfoot, without evident underlying radiogra phic abnormality. The bones of the foot appear intact, with no evidence of fracture, dislocation, or subluxation. The joint spaces are preserved. Bone mineralization is normal. No significant soft tissue swelling is seen. Left foot: Reference markers at the medial midfoot and plantar and midfoot, without evident underlying radiogra phic abnormality. The bones of the foot appear intact, with no evidence of fracture, dislocation, or subluxation. The joint spaces are preserved. Bone mineralization is normal. No significant soft tissue swelling is seen. IMPRESSION: No evident fracture identified in either foot. RPTAT: [facility] Physician Terry Date Time Electronically viewed and signed by Physician Terry on 05/15/2016 23:29 RS/
[2016-05-16 07:58] VITALS: BP 122/86; RESP 16
[2016-05-16] MEDS: MYCOPHENOLATE 250 MG CAP PO SCH ×2 (08:17→21:07)
[2016-05-16] MEDS: predniSONE 20 MG TAB PO SCH (08:17)
[2016-05-16] MEDS: SOD CHLORIDE 0.9% 1,000 ML IV SCH (14:38)
--- NOTE | 2016-05-16 17:27 | PN ---
Date/Time of Note Date/Time of Note DATE: 05/16/16 TIME: 17:24 Assessment/Plan VTE Prophylaxis VTE Prophylaxis Intervention: SCD's Lines/Catheters IV Catheter Type (from [facility]): Peripheral IV Urinary Cath still in place: No Assessment/Plan Chief Complaint/Hosp Course 1. Diffuse body pain and weakness secondary to lupus -s/p steroid pulses -Rheum consult appreciated, cont Prednisone and Cellcept 2. Acute kidney injury possibly secondary to lupus nephritis -Nephrology consultation appreciated, s/p steroid pulses, renal Bx done and results pending 3. Abdominal pain secondary to pancreatitis-resolved -Etiology was not clear 4. Pancytopenia. The patient is leukopenic, anemic, and thrombocytopenic. Cause is likely from underlying lupus, possibly from liver disease from his history of drinking -Hep panel negative and US Abdomen does not show Cirrhosis 5. B/L Foot pain with reported Hx of Foot Fx's -Xray of both feet show no Fx's Prophylaxis. SCDs. Problems: Subjective 24 Hr Interval Summary Constitutional: no complaints Exam/Review of Systems Vital Signs Vitals Vital Signs Date Time Temp Pulse Resp B/P Pulse Ox O2 Delivery O2 Flow Rate FiO2 05/16/16 07:58 97.5 78 16 122/86 99 05/14/16 09:30 Room Air Nasal Cannula 05/12/16 10:00 3 Intake and Output 05/15/16 05/15/16 05/16/16 15:00 23:00 07:00 Intake Total 1800 ml 1300 ml Output Total 1000 ml Balance 1800 ml 300 ml Exam Constitutional: alert, oriented Respiratory: clear to auscultation Cardiovascular: regular rate and rhythm Gastrointestinal: soft, No distended Musculoskeletal: nl extremities to inspection Results Result Diagram: 05/15/16 0440 05/15/16 0440 Medications Medications Current Medications Ondansetron HCl (Zofran Inj) 4 mg Q6H PRN IV NAUSEA AND/OR VOMITING; Start at 19:30 Acetaminophen (Tylenol Tab) 650 mg Q6H PRN PO PAIN LEVEL 1-3 OR FEVER Last administered on 05/10/16t 20:37; Admin Dose 650 MG; Start 05/10/16 at 19:30 Acetaminophen/ Hydrocodone Bitart ([place] (5/325)) 1 tab Q6H PRN PO MODERATE PAIN LEVEL 4-6; Start 05/10/16 at 19:30 Morphine Sulfate (morphine) 2 mg Q4H PRN IV SEVERE PAIN LEVEL 7-10; Start 05/10 at 19:30 Docusate Sodium (Colace) 100 mg Q12H PRN PO CONSTIPATION; Start 05/10/16 at 19: 30 Zolpidem Tartrate 5 mg 5 mg QHS PRN PO SLEEP; Start 05/10/16 at 19:30 Sodium Chloride (NS) 1,000 ml @ 50 mls/hr Q20H IV Last administered on 14:38; Admin Dose 50 MLS/HR; Start 05/12/16 at 11:30 Prednisone (Prednisone) 60 mg DAILY PO Last administered on 05/16/16 08:17; Admin Dose 60 MG; Start 05/13/16 at 09:00 Mycophenolate Mofetil (Cellcept) 500 mg BID PO Last administered on 05/16/16 08:17; Admin Dose 500 MG; Start 05/12/16 at 21:00 BABAR SANCHEZ May 16, 2016 17:27
[2016-05-16 20:17] VITALS: BP 136/83; RESP 21
[2016-05-17 05:43] LABS: EOSINOPHILS % 0.3 % (0.0-7.0); HEMATOCRIT 25.8 % (42.0-52.0); HEMOGLOBIN 8.8 g/dl (14.0-18.0); LYMPHOCYTES % 16.2 % (15.0-51.0); MEAN CORPUSCULAR HEMOGLOBIN 25.9 pg (29.0-33.0); MEAN CORPUSCULAR HGB CONC 34.1 g/dl (32.0-37.0); MEAN CORPUSCULAR VOLUME 75.9 fl (82.0-101.0); MEAN PLATELET VOLUME 9.5 fl (7.4-10.4); MONOCYTE # 0.6 10^3/ul (0.3-0.9); NEUTROPHIL # 4.6 10^3/ul (1.6-7.5); NEUTROPHILS % 73.5 % (39.0-77.0); PLATELET COUNT 237 10^3/UL (140-440); RED CELL DISTRIBUTION WIDTH 15.9 % (11.5-14.5); UNCORRECTED WBC 6.2 10^3/ul (4.8-10.8); WHITE BLOOD COUNT 6.2 10^3/ul (4.8-10.8)
[2016-05-17 05:53] LABS: ALBUMIN 2.3 g/dl (3.3-4.9); POTASSIUM 3.9 mmol/L (3.5-5.1)
[2016-05-17 05:55] LABS: BILIRUBIN,INDIRECT 0.2 mg/dl (0-1.1); BILIRUBIN,TOTAL 0.2 mg/dl (0.2-1.3); CREATININE 0.83 mg/dl (0.61-1.24)
[2016-05-17 05:56] LABS: ALBUMIN/GLOBULIN RATIO 0.69; CALCIUM 8.2 mg/dl (8.4-10.2); TOTAL PROTEIN 5.6 g/dl (6.1-8.1)
[2016-05-17 06:12] LABS: CONDITION 1; LH ANALYZER COMMENTS 1; SUSPECT 1
[2016-05-17 08:03] VITALS: BP 116/77; RESP 18
[2016-05-17] MEDS: predniSONE 20 MG TAB PO SCH (08:49)
[2016-05-17] MEDS: MYCOPHENOLATE 250 MG CAP PO SCH ×2 (08:49→20:35)
--- NOTE | 2016-05-17 09:14 | PN ---
DATE: 05/17/2016 SUBJECTIVE: The patient is stable, complaining of some mild joint pain. No other acute events note d. No hemoptysis, hematemesis or hematochezia. No hematuria. OBJECTIVE: VITAL SIGNS: Blood pressure is 136/83, respiration 21, pulse 92, temperature 98.9. HEENT: Head is normocephalic. NECK: Supple. HEART: Regular rate. LUNGS: Show diminished breath sounds at base. ABDOMEN: Soft, nontender to palpation. No rebound or guarding. EXTREMITIES: Negative for clubbing, cyanosis. No edema. DERMATOLOGIC: No rashes. MUSCULOSKELETAL: No joint effusions. NEUROLOGIC: No focal deficits. MEDICATIONS: Reviewed. LABORATORY DATA: Showed sodium 140, potassium 3.9, chloride 111, BUN 21, creatinine 0.83. White co unt 6.2, hemoglobin , hematocrit 25.8, platelet count is 237. ASSESSMENT AND PLAN: 1. Nonoliguric acute kidney injury with unknown baseline creatinine. 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 The patient is status post renal biopsy. Pathology r esults are still pending. The patient's renal function has improved with supportive care and being started on immunosuppressive therapy of CellCept and prednisone. At this point, we will discontinue IV fluids. We will continue prednisone 60 mg, continue CellCept 500 mg b.i.d. If patient's pathol ogy reports are suggestive of diffuse proliferative or proliferative glomerulonephritis we will up t itrate dose of CellCept to 1000 mg b.i.d. We will otherwise continue supportive care, renally dose all meds, avoid nephrotoxins. 2. Systemic lupus erythematosus. The patient has currently been seen by rheumatology. Continue tr eatment plan, CellCept, and prednisone. 3. natremia, resolved. 4. Mineral bone disorder. Continue to monitor calcium and phosphorus levels. 5. Leukopenia secondary to lupus, improving. 6. Abdominal pain, resolved. 7. General debility. Continue to monitor. Dictated By: ISMAEL WALL/CURT Conf#: [id number] DID#: [id number]
--- NOTE | 2016-05-17 12:51 | CONS ---
Date/Time of Note Date/Time of Note DATE: 05/17/16 TIME: 12:47 Consult Date/Type/Reason Admit Date/Time May 10, 2016 at 17:57 Initial Consult Date May 12 2016 Reason for Consultation Lupus with glomerulonephritis Subjective Feels better overall. no new complaints Objective Vital Signs Date Time Temp Pulse Resp B/P Pulse Ox O2 Delivery O2 Flow Rate FiO2 05/17/16 08:03 97.8 85 18 116/77 98 05/14/16 09:30 Room Air Nasal Cannula Intake and Output 05/16/16 05/16/16 05/17/16 15:00 23:00 07:00 Intake Total 2160 ml 1320 ml Output Total 2400 ml 1100 ml Balance -240 ml 220 ml Results/Medications Result Diagram: 05/17/1641905/17/16 0420 Results 24 hrs Laboratory Tests Test 05/17/16 04:20 05/17/16 09:20 Alanine Aminotransferase (ALT/SGPT) 91 H Albumin 2.3 L Albumin/Globulin Ratio 0.69 Alkaline Phosphatase 53 Anion Gap 11 Aspartate Amino Transf (AST/SGOT) 46 Basophils # 0.0 Basophils % 0.0 Blood Morphology Comment Blood Urea Nitrogen 21 #H Calcium Level 8.2 L Carbon Dioxide Level 22 Chloride Level 111 H Creatinine 0.83 Differential Comment AUTO w/SCAN Direct Bilirubin 0.00 Eosinophils # 0.0 Eosinophils % 0.3 Globulin 3.30 H Glucose Level 70 Hematocrit 25.8 L Hemoglobin 8.8 L Indirect Bilirubin 0.2 Lymphocytes # 1.0 Lymphocytes % 16.2 Mean Corpuscular Hemoglobin 25.9 L Mean Corpuscular Hemoglobin Concent 34.1 Mean Corpuscular Volume 75.9 L Mean Platelet Volume 9.5 Monocytes # 0.6 Monocytes % 10.0 Neutrophils # 4.6 Neutrophils % 73.5 Nucleated Red Blood Cells # 0.0 Nucleated Red Blood Cells % 0.0 Platelet Count 237 # Potassium Level 3.9 Red Blood Count 3.40 L Red Cell Distribution Width 15.9 H Sodium Level 140 Total Bilirubin 0.2 Total Protein 5.6 L White Blood Count 6.2 # Lab Scanned Report REFERENCE LAB Medications Current Medications Ondansetron HCl (Zofran Inj) 4 mg Q6H PRN IV NAUSEA AND/OR VOMITING; Start at 19:30 Acetaminophen (Tylenol Tab) 650 mg Q6H PRN PO PAIN LEVEL 1-3 OR FEVER Last administered on 05/10/16 20:37; Admin Dose 650 MG; Start 05/10/16 at 19:30 Acetaminophen/ Hydrocodone Bitart ([place] (5/325)) 1 tab Q6H PRN PO MODERATE PAIN LEVEL 4-6; Start 05/10/16 at 19:30 Morphine Sulfate (morphine) 2 mg Q4H PRN IV SEVERE PAIN LEVEL 7-10; Start 05/10 at 19:30 Docusate Sodium (Colace) 100 mg Q12H PRN PO CONSTIPATION; Start 05/10/16 at 19: 30 Zolpidem Tartrate (Ambien) 5 mg QHS PRN PO SLEEP; Start 05/10/16 at 19:30 Prednisone (Prednisone) 60 mg DAILY PO Last administered on 05/17/16 08:49; Admin Dose 60 MG; Start 05/13/16 at 09:00 Mycophenolate Mofetil (Cellcept) 500 mg BID PO Last administered on 05/17/16 08:49; Admin Dose 500 MG; Start 05/12/16 at 21:00 Famotidine (Pepcid) 20 mg BID PO ; Start 05/17/16 at 21:00 Assessment/Plan Chief Complaint/Hosp Course 1. Systemic lupus erythematosus active with positive RINKU and highly positive double-stranded DNA as well as low complement and renal insufficiency and malar rash. Symptomatically has improved on the steroids 2. Glomerulonephritis status post left renal biopsy with morning. Patient on prednisone 60 mg per day and CellCept 500 mg twice daily. 3. Leukopenia improved on steroids. 4. Anemia 5. Renal insufficiency with improvement. Creat decreased to 0.83 Plan 1. Continue prednisone at 60 mg daily and CellCept 500 mg twice daily for now 2. Awaiting renal biopsy results. 3. When discharged he will need rheumatologic and more critically nephrology follow-up Problems: ARIEL TAYLOR MD May 17, 2016 12:51
--- NOTE | 2016-05-17 18:09 | PN ---
DATE: 05/17/2016 TIME OF EVALUATION: 11:00 a.m. SUBJECTIVE DATA: Complains of generalized body aches. Remains afebrile. OBJECTIVE DATA: VITAL SIGNS: Temperature 97.8, pulse rate 84, respiratory rate 18, blood pressure 115/77, oxygen saturation 98% on room air. GENERAL: This is a well-built, well-nourished male patient lying in bed in no apparent distress. HEENT: Head normocephalic and atraumatic. Eyes: Anicteric sclerae. Conjunctivae clear. ENT: Nasal septum is midline. Oral mucosa is moist. NECK: Supple. No JVD noticed. RESPIRATORY: Bilaterally clear to auscultation. No adventitious breath sounds heard. No use of accessory muscles of respiration. CARDIAC: Regular rate and rhythm. No murmurs heard. ABDOMEN: Soft, nontender and nondistended. Bowel sounds positive in all 4 quadrants. GENITOURINARY: Deferred. EXTREMITIES: No cyanosis, no clubbing, no edema. Peripheral pulses are palpable. NEUROLOGIC: The patient is awake, alert and oriented. Cranial nerves are grossly intact. LABORATORY AND DIAGNOSTIC DATA: WBC 6.3, hemoglobin 8.8, hematocrit 25.8, platelet count 237. Sodium 140, potassium 3.0, chloride 111, carbon dioxide 22 , anion gap 11, BUN 21, creatinine 0.8, glucose 70, calcium 8.2. ASSESSMENT AND PLAN: 1. Systemic lupus erythematosus with positive serology including double stranded DNA with leukopenia and anemia and possible glomerulonephritis. The patient on tapering dose of steroids and CellCept. Being followed by rheumatology. 2. Acute kidney injury. Nonoliguric. Most probably secondary to lupus glomerulonephritis. The patient being followed by nephrology. Improving BUN and creatinine. 3. Microcytic, hypochromic anemia. Monitor H and H closely. Iron panel showing low iron saturation. 4. Pancytopenia, most probably secondary to underlying lupus. Mostly resolved. 5. Testicular swelling. Ultrasound showing small bilateral hydroceles. No evidence of any testicular mass. 6. Fluids, electrolytes, and nutrition. Regular diet as tolerated. 7. Deep venous thrombosis prophylaxis with bilateral sequential compression devices. 8. Gastrointestinal prophylaxis. Histamine 2 receptor blockers. 9. Plan. Continue current care. Await clearance from consultants before discharging the patient home. Case discussed with Dr. Wang. JOHN WANG MD AM/CURT Conf#: [id number] DID#: [id number] MTDD
[2016-05-17 19:24] VITALS: BP 137/92; RESP 19
[2016-05-17] MEDS: FAMOTIDINE 20 MG TAB PO SCH (20:35)
[2016-05-18 05:47] LABS: POTASSIUM 3.5 mmol/L (3.5-5.1)
[2016-05-18 05:50] LABS: CREATININE 0.85 mg/dl (0.61-1.24)
[2016-05-18 05:57] LABS: CALCIUM 8.2 mg/dl (8.4-10.2); PHOSPHORUS 4.2 mg/dl (2.5-4.9)
[2016-05-18 05:58] LABS: MAGNESIUM 1.6 mg/dl (1.7-2.5)
[2016-05-18 06:22] LABS: BASOPHILS % 0.2 % (0.0-2.0); EOSINOPHILS % 0.3 % (0.0-7.0); HEMOGLOBIN 8.8 g/dl (14.0-18.0); LYMPHOCYTES # 1.1 10^3/ul (0.8-2.9); MEAN CORPUSCULAR HEMOGLOBIN 25.8 pg (29.0-33.0); MEAN CORPUSCULAR HGB CONC 33.9 g/dl (32.0-37.0); MEAN CORPUSCULAR VOLUME 76.2 fl (82.0-101.0); MEAN PLATELET VOLUME 8.9 fl (7.4-10.4); MONOCYTE # 0.6 10^3/ul (0.3-0.9); MONOCYTES % 10.9 % (0.0-11.0); NEUTROPHIL # 3.9 10^3/ul (1.6-7.5); NEUTROPHILS % 69.6 % (39.0-77.0); PLATELET COUNT 233 10^3/UL (140-440); RED BLOOD COUNT 3.41 10^6/ul (4.70-6.10); UNCORRECTED WBC 5.7 10^3/ul (4.8-10.8); WHITE BLOOD COUNT 5.7 10^3/ul (4.8-10.8)
[2016-05-18] MEDS: FAMOTIDINE 20 MG TAB PO SCH ×2 (06:33→20:25)
[2016-05-18 06:36] LABS: CONDITION 1; LH ANALYZER COMMENTS 1
[2016-05-18 06:45] VITALS: BP 121/80; PULSE 80; RESP 19
--- NOTE | 2016-05-18 07:57 | PN ---
DATE: 05/18/2016 SUBJECTIVE: The patient is stable. He is complaining about some mild dysphagia. No other acute ev ents noted. No hemoptysis, hematemesis, or hematochezia. The patient's renal biopsy preliminary read is suggestive of a focal proliferative glomerulonephriti s lupus. I discussed this with the patient, informing him of his diagnosis and answered all questio ns. OBJECTIVE: VITAL SIGNS: Blood pressure is 121/80, respiration 19, pulse 80, temperature is 97.7. HEENT: Head is normocephalic. NECK: Supple. HEART: Regular rate. LUNGS: Show diminished breath sounds at the base. ABDOMEN: Soft, nontender to palpation. No rebound or guarding. EXTREMITIES: Negative for clubbing, cyanosis, no edema. DERMATOLOGIC: No rashes. MUSCULOSKELETAL: No joint effusions. NEUROLOGIC: No change in exam. MEDICATIONS: The patient's medications have been reviewed. LABORATORY DATA: Shows sodium 139, potassium 3.5, chloride 108, BUN 21, creatinine 0.85, magnesium 1.6. White count 5.7, hemoglobin 8.8, hematocrit 26.9, platelet count 233. ASSESSMENT AND PLAN: 1. Nonoliguric acute kidney injury with unknown baseline creatinine. Etiology of acute kidney inju ry was secondary to hemodynamics and focal proliferative lupus nephritis. The patient's biopsy resu lts are consistent with lupus nephritis stage III, focal proliferative. Final report is pending. T he patient's renal function has improved with supportive care, intravenous fluids. At this point, w ould continue current treatment plan. Continue prednisone 60 mg daily with a slow taper. Will cont inue CellCept 500 mg b.i.d., will increase dose to 1 gram b.i.d. in the next 1 to 2 days with eventu ally up titrating to 1.5 grams b.i.d. if patient can tolerate. Would otherwise continue supportive care, renally dose all meds, avoid nephrotoxins. 2. Systemic lupus erythematosus. The patient is currently being seen by rheumatology. Continue Ce llCept and prednisone as stated above. 3. Hypomagnesemia. We will replete with magnesium oxide. 4. Mineral bone disorder. Monitor calcium and phosphorus levels. 5. Leukopenia secondary to lupus, resolved. 6. Dysphagia, possibly thrush. Will discuss with primary team about starting Diflucan. 7. General debility. Continue to monitor. 8. Anemia of chronic disease. Continue to monitor hemoglobin and hematocrit levels. Dictated By: ISMAEL WALL/CURT Conf#: [id number] DID#: [id number]
[2016-05-18] MEDS ORDERED: MAGNESIUM OXIDE 400 MG TAB PO ONE (08:00)
[2016-05-18] MEDS ORDERED: MAGNESIUM SULFATE 2 GM/50 ML 50 ML IVPB ONE (08:00)
[2016-05-18] MEDS: predniSONE 20 MG TAB PO SCH (08:34)
[2016-05-18] MEDS: MYCOPHENOLATE 250 MG CAP PO SCH ×2 (08:35→20:25)
[2016-05-18 08:37] VITALS: BP 127/80; RESP 18
--- NOTE | 2016-05-18 10:24 | PN ---
Date/Time of Note Date/Time of Note DATE: 05/18/16 TIME: 10:21 Assessment/Plan VTE Prophylaxis VTE Prophylaxis Intervention: SCD's Lines/Catheters IV [facility] Urinary Cath still in place: No Assessment/Plan Chief Complaint/Hosp Course 1. Systemic lupus erythematosus with positive serology including double stranded DNA. The patient on steroids and CellCept. Being followed by rheumatology. 2. Acute kidney injury. Nonoliguric. Secondary to lupus glomerulonephritis. The patient being followed by nephrology. Improving BUN and creatinine. 3. Microcytic, hypochromic anemia. Monitor H and H closely. Iron panel showing low iron saturation. 4. Pancytopenia, most probably secondary to underlying lupus. Mostly resolved. 5. Testicular swelling. Ultrasound showing small bilateral hydroceles. No evidence of any testicular mass. 6. Fluids, electrolytes, and nutrition. Regular diet as tolerated. 7. Deep venous thrombosis prophylaxis with bilateral sequential compression devices. 8. Gastrointestinal prophylaxis. Histamine 2 receptor blockers. 9. Plan. Continue current care. Await clearance from consultants before discharging the patient home. Case discussed with Dr. Soto. Case discussed with Rheumatology and Nephrology. Problems: Subjective 24 Hr Interval Summary Free Text/Dictation Complains of B/L feet pain. Denies any dysphagia. Exam/Review of Systems Vital Signs Vitals Vital Signs Date Time Temp Pulse Resp B/P Pulse Ox O2 Delivery O2 Flow Rate FiO2 05/18/16 08:37 97.7 90 18 127/80 98 05/18/16 06:45 Room Air Intake and Output 05/17/16 05/17/16 05/18/16 15:00 23:00 07:00 Intake Total 1300 ml 1400 ml Output Total 1100 ml 1175 ml Balance 200 ml 225 ml Exam GENERAL: This is a well-built, well-nourished male patient lying in bed in no apparent distress. HEENT: Head normocephalic and atraumatic. Eyes: Anicteric sclerae. Conjunctivae clear. ENT: Nasal septum is midline. Oral mucosa is moist. NECK: Supple. No JVD noticed. RESPIRATORY: Bilaterally clear to auscultation. No adventitious breath sounds heard. No use of accessory muscles of respiration. CARDIAC: Regular rate and rhythm. No murmurs heard. ABDOMEN: Soft, nontender and nondistended. Bowel sounds positive in all 4 quadrants. GENITOURINARY: Deferred. EXTREMITIES: No cyanosis, no clubbing, no edema. Peripheral pulses are palpable. NEUROLOGIC: The patient is awake, alert and oriented. Cranial nerves are grossly intact. Results Result Diagram: 05/18/16 0430 05/18/16 0430 Results 24 hrs Laboratory Tests Test 05/18/16 04:30 Anion Gap 11 Basophils # 0.0 Basophils % 0.2 Blood Morphology Comment Blood Urea Nitrogen 21 H Calcium Level 8.2 L Carbon Dioxide Level 24 Chloride Level 108 Creatinine 0.85 Eosinophils # 0.0 Eosinophils % 0.3 Glucose Level 80 Hematocrit 26.0 L Hemoglobin 8.8 L Lymphocytes # 1.1 Lymphocytes % 19.0 Magnesium Level 1.6 L Mean Corpuscular Hemoglobin 25.8 L Mean Corpuscular Hemoglobin Concent 33.9 Mean Corpuscular Volume 76.2 L Mean Platelet Volume 8.9 Monocytes # 0.6 Monocytes % 10.9 Neutrophils # 3.9 Neutrophils % 69.6 Nucleated Red Blood Cells # 0.0 Nucleated Red Blood Cells % 0.0 Phosphorus Level 4.2 Platelet Count 233 Potassium Level 3.5 Red Blood Count 3.41 L Red Cell Distribution Width 16.0 H Sodium Level 139 White Blood Count 5.7 Medications Medications Current Medications Ondansetron HCl (Zofran Inj) 4 mg Q6H PRN IV NAUSEA AND/OR VOMITING; Start at 19:30 Acetaminophen (Tylenol Tab) 650 mg Q6H PRN PO PAIN LEVEL 1-3 OR FEVER Last administered on 05/10/16 20:37; Admin Dose 650 MG; Start 05/10/16 at 19:30 Acetaminophen/ Hydrocodone Bitart ([place] (5/325)) 1 tab Q6H PRN PO MODERATE PAIN LEVEL 4-6; Start 05/10/16 at 19:30 Morphine Sulfate (morphine) 2 mg Q4H PRN IV SEVERE PAIN LEVEL 7-10; Start 05/10 at 19:30 Docusate Sodium (Colace) 100 mg Q12H PRN PO CONSTIPATION; Start 05/10/16 at 19: 30 Zolpidem Tartrate (Ambien) 5 mg QHS PRN PO SLEEP; Start 05/10/16 at 19:30 Prednisone (Prednisone) 60 mg DAILY PO Last administered on 05/18/16 08:34; Admin Dose 60 MG; Start 05/13/16 at 09:00 Mycophenolate Mofetil (Cellcept) 500 mg BID PO Last administered on 05/18/16 08:35; Admin Dose 500 MG; Start 05/12/16 at 21:00 Famotidine (Pepcid) 20 mg BID PO Last administered on 05/18/16 06:33; Admin Dose 20 MG; Start 05/17/16 at 21:00 JOHN CONDON NP May 18, 2016 10:24
--- NOTE | 2016-05-18 13:46 | CONS ---
Date/Time of Note Date/Time of Note DATE: 05/18/16 TIME: 13:41 Consult Date/Type/Reason Admit Date/Time May 10, 2016 at 17:57 Initial Consult Date May 12 2016 Reason for Consultation Lupus with glomerulonephritis Objective Alert oriented Skin. Rash fading Chest clear to auscultation percussion Heart regular no rhythm Abdomen soft without tenderness or masses Extremities without synovitis Renal biopsy results noted. Stage III lupus glomerulonephritis focal proliferative. Vital Signs Date Time Temp Pulse Resp B/P Pulse Ox O2 Delivery O2 Flow Rate FiO2 05/18/16 08:37 97.7 90 18 127/80 98 05/18/16 06:45 Room Air Intake and Output 05/17/16 05/17/16 05/18/16 15:00 23:00 07:00 Intake Total 1300 ml 1400 ml Output Total 1100 ml 1175 ml Balance 200 ml 225 ml Results/Medications Result Diagram: 05/18/16 0430 05/18/16 0430 Results 24 hrs Laboratory Tests Test 05/18/16 04:30 Anion Gap 11 Basophils # 0.0 Basophils % 0.2 Blood Morphology Comment Blood Urea Nitrogen 21 H Calcium Level 8.2 L Carbon Dioxide Level 24 Chloride Level 108 Creatinine 0.85 Eosinophils # 0.0 Eosinophils % 0.3 Glucose Level 80 Hematocrit 26.0 L Hemoglobin 8.8 L Lymphocytes # 1.1 Lymphocytes % 19.0 Magnesium Level 1.6 L Mean Corpuscular Hemoglobin 25.8 L Mean Corpuscular Hemoglobin Concent 33.9 Mean Corpuscular Volume 76.2 L Mean Platelet Volume 8.9 Monocytes # 0.6 Monocytes % 10.9 Neutrophils # 3.9 Neutrophils % 69.6 Nucleated Red Blood Cells # 0.0 Nucleated Red Blood Cells % 0.0 Phosphorus Level 4.2 Platelet Count 233 Potassium Level 3.5 Red Blood Count 3.41 L Red Cell Distribution Width 16.0 H Sodium Level 139 White Blood Count 5.7 Medications Current Medications Ondansetron HCl (Zofran Inj) 4 mg Q6H PRN IV NAUSEA AND/OR VOMITING; Start at 19:30 Acetaminophen (Tylenol Tab) 650 mg Q6H PRN PO PAIN LEVEL 1-3 OR FEVER Last administered on 05/10/16t 20:37; Admin Dose 650 MG; Start 05/10/16 at 19:30 Acetaminophen/ Hydrocodone Bitart ([place] (5/325)) 1 tab Q6H PRN PO MODERATE PAIN LEVEL 4-6; Start 05/10/16 at 19:30 Morphine Sulfate (morphine) 2 mg Q4H PRN IV SEVERE PAIN LEVEL 7-10; Start 05/10 at 19:30 Docusate Sodium (Colace) 100 mg Q12H PRN PO CONSTIPATION; Start 05/10/16 at 19: 30 Zolpidem Tartrate (Ambien) 5 mg QHS PRN PO SLEEP; Start 05/10/16 at 19:30 Prednisone (Prednisone) 60 mg DAILY PO Last administered on 05/18/16 08:34; Admin Dose 60 MG; Start 05/13/16 at 09:00 Mycophenolate Mofetil (Cellcept) 500 mg BID PO Last administered on 05/18/16 08:35; Admin Dose 500 MG; Start 05/12/16 at 21:00 Famotidine (Pepcid) 20 mg BID PO Last administered on 05/18/16 06:33; Admin Dose 20 MG; Start 05/17/16 at 21:00 Assessment/Plan Chief Complaint/Hosp Course 1. Systemic lupus erythematosus active with positive RINKU and highly positive double-stranded DNA as well as low complement and renal insufficiency and malar rash. Symptomatically has improved on the steroids 2. Glomerulonephritis status post left renal biopsy with morning. Patient on prednisone 60 mg per day and CellCept 500 mg twice daily. 3. Leukopenia improved on steroids. 4. Anemia 5. Renal insufficiency with improvement. Creat decreased to 0.85 Plan 1. Continue prednisone at 60 mg daily and CellCept 500 mg twice daily for now 2. 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 When discharged he will need rheumatologic and more critically nephrology follow-up Problems: ARIEL TAYLOR MD May 18, 2016 13:46
[2016-05-18 19:55] VITALS: BP 130/77; RESP 18
[2016-05-19 05:27] LABS: BASOPHILS % 0.2 % (0.0-2.0); EOSINOPHILS % 0.1 % (0.0-7.0); HEMATOCRIT 24.9 % (42.0-52.0); HEMOGLOBIN 8.5 g/dl (14.0-18.0); LYMPHOCYTES # 1.1 10^3/ul (0.8-2.9); LYMPHOCYTES % 17.8 % (15.0-51.0); MEAN CORPUSCULAR HEMOGLOBIN 25.8 pg (29.0-33.0); MEAN CORPUSCULAR HGB CONC 34.2 g/dl (32.0-37.0); MEAN CORPUSCULAR VOLUME 75.3 fl (82.0-101.0); MEAN PLATELET VOLUME 8.7 fl (7.4-10.4); MONOCYTE # 0.7 10^3/ul (0.3-0.9); MONOCYTES % 10.8 % (0.0-11.0); NEUTROPHIL # 4.5 10^3/ul (1.6-7.5); NEUTROPHILS % 71.1 % (39.0-77.0); PLATELET COUNT 240 10^3/UL (140-440); RED BLOOD COUNT 3.31 10^6/ul (4.70-6.10); RED CELL DISTRIBUTION WIDTH 15.9 % (11.5-14.5); UNCORRECTED WBC 6.4 10^3/ul (4.8-10.8); WHITE BLOOD COUNT 6.4 10^3/ul (4.8-10.8)
[2016-05-19 05:42] LABS: POTASSIUM 3.6 mmol/L (3.5-5.1)
[2016-05-19 05:44] LABS: CREATININE 0.95 mg/dl (0.61-1.24)
[2016-05-19 05:45] LABS: CALCIUM 8.4 mg/dl (8.4-10.2); MAGNESIUM 1.8 mg/dl (1.7-2.5); PHOSPHORUS 3.9 mg/dl (2.5-4.9)
[2016-05-19 05:46] LABS: CONDITION 1; LH ANALYZER COMMENTS 1
[2016-05-19] MEDS: FAMOTIDINE 20 MG TAB PO SCH ×2 (09:04→20:13)
[2016-05-19] MEDS: predniSONE 20 MG TAB PO SCH (09:05)
[2016-05-19] MEDS: MYCOPHENOLATE 250 MG CAP PO SCH ×2 (09:05→20:13)
[2016-05-19 09:07] VITALS: BP 125/76; RESP 18
--- NOTE | 2016-05-19 09:52 | PN ---
DATE: 05/19/2016 SUBJECTIVE: The patient is stable, no acute events overnight. No fevers or chills. I spoke with t he patient this morning, informing him that once he is discharged that he has to have follow up with a psychological science professor within 1 weeks' time and a new sales clerk supervisor. I discussed the course of the diseas e with the patient including his diagnosis of focal proliferative glomerulonephritis. The patient's questions were answered. OBJECTIVE: VITAL SIGNS: Currently, blood pressure 130/77, respiration is 18, pulse 78, temperature 98.6. HEENT: Head is normocephalic. NECK: Supple. HEART: Regular rate. LUNGS: Show diminished breath sounds at the base. ABDOMEN: Soft, nontender to palpation. No rebound or guarding. EXTREMITIES: Negative for clubbing, cyanosis. No edema. DERMATOLOGIC: No rashes. MUSCULOSKELETAL: No joint effusions. NEUROLOGIC: No focal deficits. MEDICATIONS: Patient's medications have been reviewed. LABORATORY DATA: Shows white count 6.4, hemoglobin 8.5, hematocrit 24.9, platelet count 240. Sodiu m 142, potassium 3.6, chloride 110, BUN 22, creatinine 0.95. The patient's pathology report sebasi sterling read showed lupus class 3, focal proliferative. Full biopsy results are pending. ASSESSMENT AND PLAN: 1. Nonoliguric acute kidney injury with unknown baseline creatinine. Etiology is secondary to hemo dynamics and focal proliferative lupus nephritis class 3. The patient's biopsy results are consiste nt with class 3 lupus glomerulonephritis. The patient is currently responding well to IV fluids and immunosuppressive therapy. Renal function is normalized. At this point, we will continue current treatment plan. We will increase CellCept to 1 gram b.i.d. and anticipate increasing in the next 7 days to 1.5 b.i.d. Additionally, the patient will continue prednisone 60 mg daily with a slow taper to 50 mg daily in 2 weeks' time. When the patient is discharged, I informed him that he is to foll ow up with a psychological science professor within 1 weeks' time to have lab checks and to continue adjusting immunosu ppressive therapy. I will also request case management to arrange for outpatient nephrology and [facility] umatology appointment and follow up prior to discharge. Otherwise, continue current treatment plan, supportive care, renally dose all medications, avoid nephrotoxins. 2. Systemic lupus erythematosus. The patient is currently stable. Continue CellCept and prednison e. 3. Hypomagnesemia, resolved. 4. Mineral bone disorder. Continue to monitor calcium and phosphorus levels. 5. Leukopenia, resolved. 6. Dysphagia, improved. We will continue to monitor closely for signs of thrush. 7. General debility. Continue physical therapy. 8. Anemia of chronic disease. Continue to monitor hemoglobin and hematocrit levels. DISPOSITION: The patient is stable for discharge once outpatient nephrology follow up has been arra meagan and rheumatology follow up consults has been arranged per case management. Dictated By: ISMAEL WALL/NTS Conf#: [id number] DID#: [id number]
--- NOTE | 2016-05-19 10:08 | PDOCDIS ---
Discharge Instructions DIAGNOSIS Discharge Diagnosis: Lupus nephritis. CONDITION Patient Condition: Stable HOME CARE INSTRUCTIONS: Special Diet: REGULAR OTHER ORDERS: Other Orders: 1. Please take medications as per prescription. Make sure that you wont skip any medications. It is very important to taper the medications you are getting as instructed by outpatient nephrology. 2. Follow-up with nephrology in 1 week. Follow-up with rheumatology in 1 week. 3. Regular diet as tolerated. 4. Resume activities as tolerated. 5. Avoid using NSAIDs for pain control. JOHN CONDON NP May 19, 2016 10:08
[2016-05-19] MEDS ORDERED: MYCO250C3 PO (10:10)
[2016-05-19] MEDS ORDERED: FAMO20TA18 PO (10:10)
[2016-05-19] MEDS ORDERED: PRED20 PO (10:10)
--- NOTE | 2016-05-19 12:08 | DS ---
DATE OF ADMISSION: 05/10/2016 DATE OF DISCHARGE: 05/21/2016 FINAL DIAGNOSES: 1. Systemic lupus erythematosus. 2. 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 3. Microcytic hypochromic anemia. 4. Pancytopenia. Largely resolved. 5. Small bilateral hydroceles. CONSULTATIONS: 1. Dr. Avery Romero, nephrology. 2. Dr. Corwin Duque, rheumatology. HOSPITAL COURSE: This is a 36-year-old male who was recently diagnosed with lupus. He came to the emergency room with chief complaint of generalized weakness, joint pain as well as facial rash. In the emergency room, the patient was noticed to be in acute renal failure with a BUN and creatinine of 33 and 1.97 respectively. The patient was also noticed to be pancytopenic in the emergency room. The patient underwent a CT scan of the abdomen and pelvis in the emergency room that showed prominent bilateral perinephritic stranding. The CT also showed multiple prominent retroperitoneal and iliac chain lymph nodes as well as an 11 mm aortocaval lymph node and a 1.6 cm left pelvic sidewall lymph node. Provided the patient's history of present illness and the clinical findings, a clinical decision was made to admit the patient to inpatient setting to have him further evaluated. The patient was admitted to inpatient medical/surgical floor. A nephrology and rheumatology consult was called on this patient. The patient was confirmed to have systemic lupus erythematosus with positive serology including double stranded DNA. The patient was started on high dose steroids and immunosuppressants. The patient was also noticed to have acute kidney injury. The patient underwent a renal biopsy. 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 Hence, the patient was maintained on prednisone and CellCept. The patient's CellCept dosing was increased once lupus nephritis has been confirmed. The patient was also noticed to have pancytopenia. This could be most probably secondary to underlying lupus. The patient's pancytopenia improved through the patient's hospital course. The patient had some testicular swelling. In addition, the patient's abdominal and pelvic CT scan showed multiple retroperitoneal and iliac chain lymph nodes. Hence, a testicular ultrasound was ordered to evaluate for any underlying testicular malignancy. The patient's testicular ultrasound revealed bilateral small hydroceles and no evidence of any testicular mass. The patient's kidney function improved throughout the hospital course. The patient's joint pain and malar rash improved with the treatment strategy. The patient was cleared by consultants to be discharged home, provided the patient has outpatient followup with nephrology and rheumatology. DISCHARGE DISPOSITION/PLAN: The patient will be discharged home today. The patient was instructed to take medications as per prescription. He was instructed to make sure not to skip any medications and very important to taper medications he is getting as instructed by outpatient nephrology. He was instructed to follow up with outpatient nephrology and outpatient rheumatology in 1 week. Case management order was done to arrange for outpatient nephrology and rheumatology followup. He was instructed to take a regular diet as tolerated and to resume activities as tolerated. He was instructed to avoid using NSAIDS for pain control because of possible worsening renal function and increased risk of gastric ulcerations since the patient is getting oral steroids. The patient verbalized understanding of his discharge instructions. CONDITION AT DISCHARGE: Stable. DISCHARGE MEDICATIONS: 1. Pepcid 20 mg p.o. b.i.d. 2. CellCept 1000 mg p.o. b.i.d. for 14 days. 3. Prednisone 60 mg p.o. daily x14 days, followed by prednisone 50 mg p.o. daily for 14 days. (The rest of prednisone tapering to be done by outpatient nephrology). PERTINENT LABORATORY AND DIAGNOSTIC DATA: 1. Chest x-ray upon admission: No acute disease. 2. CT scan of the abdomen and pelvis. Prominent bilateral perinephric stranding findings can be seen with pyelonephritis. Bladder is distended and there is a mild left greater than right hydronephrosis. Multiple prominent retroperitoneal and iliac chain lymph nodes are noted along with an 11 mm aortocaval lymph node and a 1.6 cm left pelvic sidewall lymph node. Findings are nonspecific, although in a male patient of this age, differential considerations include a testicular malignancy. A scrotal ultrasound is recommended for further evaluation. Tiny fat containing umbilical hernia. 3. Testicular ultrasound. Small bilateral hydroceles and small right hydrocele. No evidence of testicular mass. 4. Abdominal ultrasound. Small gallbladder polyp measuring 0.2 cm. Mild gallbladder wall thickening with adjacent free fluid. This may indicate acalculous cholecystitis. 5. Bilateral feet x-ray. No evidence of fracture identified in either foot. 6. Latest CBC: WBC 6.4, hemoglobin 8.5, hematocrit 24.9, platelet count 240. 7. Latest BMP: Sodium 142, potassium 3.6, chloride 110, carbon dioxide 26, anion gap 10, BUN 22, creatinine 0.95, glucose 77, calcium 8.4, phosphorus 3.9, magnesium 1.8. 8. Hemoglobin A1c 5.9. 9. Fasting lipid panel: Triglycerides 117, total cholesterol 77, LDL 41, HDL 13. 10. Human immunodeficiency virus 1 and 2 antibody negative. 11. Hepatitis serology negative. 12. Complement C3 less than 40. 13. Complement C4 less than 8. 14. Double stranded DNA 961. 15. RINKU screen positive, RINKU titer 1:1280. At this time, I would like to thank all the consultants for seeing the patient and providing clinical recommendations. The case and management of this patient was fully discussed with Dr. Wang. Approximately 40 minutes was spent on coordinating the discharge on this patient. JOHN WANG MD, AM/CURT Conf#: [id number] DID#: [id number] MTDD
--- NOTE | 2016-05-19 14:04 | PN ---
Date/Time of Note Date/Time of Note DATE: 05/19/16 TIME: 14:02 Assessment/Plan VTE Prophylaxis VTE Prophylaxis Intervention: SCD's Lines/Catheters [facility] Saline Lock Urinary Cath still in place: No Assessment/Plan Chief Complaint/Hosp Course 1. Systemic lupus erythematosus with positive serology including double stranded DNA. The patient on steroids and CellCept. Being followed by rheumatology. 2. Acute kidney injury. Nonoliguric. Secondary to lupus glomerulonephritis. The patient being followed by nephrology. Improving BUN and creatinine. 3. Microcytic, hypochromic anemia. Monitor H and H closely. Iron panel showing low iron saturation. 4. Pancytopenia, most probably secondary to underlying lupus. Mostly resolved. 5. Testicular swelling. Ultrasound showing small bilateral hydroceles. No evidence of any testicular mass. 6. Fluids, electrolytes, and nutrition. Regular diet as tolerated. 7. Deep venous thrombosis prophylaxis with bilateral sequential compression devices. 8. Gastrointestinal prophylaxis. Histamine 2 receptor blockers. 9. Plan. Continue current care. The patient will be discharged home once outpatient nephrology follow-up is set up. Case discussed with Dr. Soto. Case discussed with Nephrology. Problems: Subjective 24 Hr Interval Summary Free Text/Dictation Pain well controlled. Exam/Review of Systems Vital Signs Vitals Vital Signs Date Time Temp Pulse Resp B/P Pulse Ox O2 Delivery O2 Flow Rate FiO2 05/19/16 09:07 98.3 88 18 125/76 96 05/18/16 06:45 Room Air Intake and Output 05/18/16 05/18/16 05/19/16 15:00 23:00 07:00 Intake Total 1100 ml 550 ml Output Total 1200 ml 800 ml Balance -100 ml -250 ml Exam GENERAL: This is a well-built, well-nourished male patient lying in bed in no apparent distress. HEENT: Head normocephalic and atraumatic. Eyes: Anicteric sclerae. Conjunctivae clear. ENT: Nasal septum is midline. Oral mucosa is moist. NECK: Supple. No JVD noticed. RESPIRATORY: Bilaterally clear to auscultation. No adventitious breath sounds heard. No use of accessory muscles of respiration. CARDIAC: Regular rate and rhythm. No murmurs heard. ABDOMEN: Soft, nontender and nondistended. Bowel sounds positive in all 4 quadrants. GENITOURINARY: Deferred. EXTREMITIES: No cyanosis, no clubbing, no edema. Peripheral pulses are palpable. NEUROLOGIC: The patient is awake, alert and oriented. Cranial nerves are grossly intact. Results Result Diagram: 05/19/1644405/19/16444 Results 24 hrs Laboratory Tests Test 05/19/16 04:45 Anion Gap 10 Basophils # 0.0 Basophils % 0.2 Blood Morphology Comment Blood Urea Nitrogen 22 H Calcium Level 8.4 Carbon Dioxide Level 26 Chloride Level 110 Creatinine 0.95 Eosinophils # 0.0 Eosinophils % 0.1 Glucose Level 77 Hematocrit 24.9 L Hemoglobin 8.5 L Lymphocytes # 1.1 Lymphocytes % 17.8 Magnesium Level 1.8 Mean Corpuscular Hemoglobin 25.8 L Mean Corpuscular Hemoglobin Concent 34.2 Mean Corpuscular Volume 75.3 L Mean Platelet Volume 8.7 Monocytes # 0.7 Monocytes % 10.8 Neutrophils # 4.5 Neutrophils % 71.1 Nucleated Red Blood Cells # 0.0 Nucleated Red Blood Cells % 0.0 Phosphorus Level 3.9 Platelet Count 240 Potassium Level 3.6 Red Blood Count 3.31 L Red Cell Distribution Width 15.9 H Sodium Level 142 White Blood Count 6.4 Medications Medications Current Medications Ondansetron HCl (Zofran Inj) 4 mg Q6H PRN IV NAUSEA AND/OR VOMITING; Start at 19:30 Acetaminophen (Tylenol Tab) 650 mg Q6H PRN PO PAIN LEVEL 1-3 OR FEVER Last administered on 05/10/16 20:37; Admin Dose 650 MG; Start 05/10/16 at 19:30 Acetaminophen/ Hydrocodone Bitart ([place] (5/325)) 1 tab Q6H PRN PO MODERATE PAIN LEVEL 4-6; Start 05/10/16 at 19:30 Morphine Sulfate (morphine) 2 mg Q4H PRN IV SEVERE PAIN LEVEL 7-10; Start 05/10 at 19:30 Docusate Sodium (Colace) 100 mg Q12H PRN PO CONSTIPATION; Start 05/10/16 at 19: 30 Zolpidem Tartrate (Ambien) 5 mg QHS PRN PO SLEEP; Start 05/10/16 at 19:30 Prednisone (Prednisone) 60 mg DAILY PO Last administered on 05/19/16 09:05; Admin Dose 60 MG; Start 05/13/16 at 09:00 Famotidine (Pepcid) 20 mg BID PO Last administered on 05/19/16 09:04; Admin Dose 20 MG; Start 05/17/16 at 21:00 Mycophenolate Mofetil (Cellcept) 1,000 mg BID PO Last administered on 09:05; Admin Dose 1,000 MG; Start 05/19/16 at 09:00 JOHN CONDON NP May 19, 2016 14:04
[2016-05-19 19:52] VITALS: BP 128/78; RESP 18
[2016-05-20 05:33] LABS: HEMATOCRIT 24.7 % (42.0-52.0); HEMOGLOBIN 8.4 g/dl (14.0-18.0); LYMPHOCYTES # 0.8 10^3/ul (0.8-2.9); MEAN CORPUSCULAR HEMOGLOBIN 26.2 pg (29.0-33.0); MEAN CORPUSCULAR VOLUME 77.1 fl (82.0-101.0); MEAN PLATELET VOLUME 8.4 fl (7.4-10.4); MONOCYTE # 0.6 10^3/ul (0.3-0.9); MONOCYTES % 8.5 % (0.0-11.0); NEUTROPHILS % 80.5 % (39.0-77.0); PLATELET COUNT 222 10^3/UL (140-440); RED BLOOD COUNT 3.21 10^6/ul (4.70-6.10); RED CELL DISTRIBUTION WIDTH 15.4 % (11.5-14.5); UNCORRECTED WBC 7.5 10^3/ul (4.8-10.8); WHITE BLOOD COUNT 7.5 10^3/ul (4.8-10.8)
[2016-05-20 06:19] LABS: CONDITION 1
[2016-05-20 06:20] LABS: LH ANALYZER COMMENTS 1
[2016-05-20] MEDS: FAMOTIDINE 20 MG TAB PO SCH ×2 (09:02→20:09)
[2016-05-20] MEDS: predniSONE 20 MG TAB PO SCH (09:02)
[2016-05-20] MEDS: MYCOPHENOLATE 250 MG CAP PO SCH ×2 (09:03→20:09)
[2016-05-20 09:07] VITALS: BP 123/76; RESP 20
--- NOTE | 2016-05-20 10:35 | PN ---
Date/Time of Note Date/Time of Note DATE: 05/20/16 TIME: 10:34 Assessment/Plan VTE Prophylaxis VTE Prophylaxis Intervention: SCD's Lines/Catheters [facility]ter Type [facility]from [facility]): Saline Lock Urinary Cath still in place: No Assessment/Plan Chief Complaint/Hosp Course 1. Systemic lupus erythematosus with positive serology including double stranded DNA. The patient on steroids and CellCept. Being followed by rheumatology. 2. Acute kidney injury. Nonoliguric. Secondary to lupus glomerulonephritis. The patient being followed by nephrology. Improving BUN and creatinine. 3. Microcytic, hypochromic anemia. Monitor H and H closely. Iron panel showing low iron saturation. 4. Pancytopenia, most probably secondary to underlying lupus. Mostly resolved. 5. Testicular swelling. Ultrasound showing small bilateral hydroceles. No evidence of any testicular mass. 6. Fluids, electrolytes, and nutrition. Regular diet as tolerated. 7. Deep venous thrombosis prophylaxis with bilateral sequential compression devices. 8. Gastrointestinal prophylaxis. Histamine 2 receptor blockers. 9. Plan. Continue current care. The patient will be discharged home once outpatient nephrology follow-up is set up. Case discussed with Dr. Soto. Problems: Subjective 24 Hr Interval Summary Free Text/Dictation Awaiting insurance approval for outpatient nephrology follow-up. Exam/Review of Systems Vital Signs Vitals Vital Signs Date Time Temp Pulse Resp B/P Pulse Ox O2 Delivery O2 Flow Rate FiO2 05/20/16 09:07 98.8 109 20 123/76 99 05/18/16 06:45 Room Air Intake and Output 05/19/16 05/19/16 05/20/16 15:00 23:00 07:00 Intake Total 2060 ml 1500 ml Output Total 400 ml Balance 1660 ml 1500 ml Exam GENERAL: This is a well-built, well-nourished male patient lying in bed in no apparent distress. HEENT: Head normocephalic and atraumatic. Eyes: Anicteric sclerae. Conjunctivae clear. ENT: Nasal septum is midline. Oral mucosa is moist. NECK: Supple. No JVD noticed. RESPIRATORY: Bilaterally clear to auscultation. No adventitious breath sounds heard. No use of accessory muscles of respiration. CARDIAC: Regular rate and rhythm. No murmurs heard. ABDOMEN: Soft, nontender and nondistended. Bowel sounds positive in all 4 quadrants. GENITOURINARY: Deferred. EXTREMITIES: No cyanosis, no clubbing, no edema. Peripheral pulses are palpable. NEUROLOGIC: The patient is awake, alert and oriented. Cranial nerves are grossly intact. Results Result Diagram: 05/20/16 0500 05/19/16 0445 Results 24 hrs Laboratory Tests Test 05/20/16 05:00 Basophils # 0.0 Basophils % 0.0 Blood Morphology Comment Eosinophils # 0.0 Eosinophils % 0.0 Hematocrit 24.7 L Hemoglobin 8.4 L Lymphocytes # 0.8 Lymphocytes % 11.0 L Mean Corpuscular Hemoglobin 26.2 L Mean Corpuscular Hemoglobin Concent 34.0 Mean Corpuscular Volume 77.1 L Mean Platelet Volume 8.4 Monocytes # 0.6 Monocytes % 8.5 Neutrophils # 6.0 Neutrophils % 80.5 H Nucleated Red Blood Cells # 0.0 Nucleated Red Blood Cells % 0.0 Platelet Count 222 Red Blood Count 3.21 L Red Cell Distribution Width 15.4 H White Blood Count 7.5 Medications Medications Current Medications Ondansetron HCl (Zofran Inj) 4 mg Q6H PRN IV NAUSEA AND/OR VOMITING; Start at 19:30 Acetaminophen (Tylenol Tab) 650 mg Q6H PRN PO PAIN LEVEL 1-3 OR FEVER Last administered on 05/10/16 20:37; Admin Dose 650 MG; Start 05/10/16 at 19:30 Acetaminophen/ Hydrocodone Bitart ([place] (5/325)) 1 tab Q6H PRN PO MODERATE PAIN LEVEL 4-6; Start 05/10/16 at 19:30 Morphine Sulfate (morphine) 2 mg Q4H PRN IV SEVERE PAIN LEVEL 7-10; Start 05/10 at 19:30 Docusate Sodium (Colace) 100 mg Q12H PRN PO CONSTIPATION; Start 05/10/16 at 19: 30 Zolpidem Tartrate (Ambien) 5 mg QHS PRN PO SLEEP; Start 05/10/16 at 19:30 Prednisone (Prednisone) 60 mg DAILY PO Last administered on 05/20/16 09:02; Admin Dose 60 MG; Start 05/13/16 at 09:00 Famotidine (Pepcid) 20 mg BID PO Last administered on 05/20/16 09:02; Admin Dose 20 MG; Start 05/17/16 at 21:00 Mycophenolate Mofetil (Cellcept) 1,000 mg BID PO Last administered on t 09:03; Admin Dose 1,000 MG; Start 05/19/16 at 09:00 JOHN CONDON NP May 20, 2016 10:35
--- NOTE | 2016-05-20 11:11 | PN ---
DATE: 05/20/2016 SUBJECTIVE: The patient is stable, no acute events overnight. No fevers, chills, nausea/vomiting o r shortness breath. OBJECTIVE: VITAL SIGNS: Blood pressure is 120/70, respiration 18, pulse 80, temperature 98.0. HEENT: Head is normocephalic. NECK: Supple. HEART: Regular rate. LUNGS: Show diminished breath sounds at base. ABDOMEN: Soft, nontender to palpation. No rebound or guarding. EXTREMITIES: Negative for clubbing, cyanosis, no edema. DERMATOLOGIC: No rashes. MUSCULOSKELETAL: No joint effusions. NEUROLOGIC: No change in exam. MEDICATIONS: The patient's medications have been reviewed. LABORATORY DATA: Laboratory data have been reviewed. No new labs. ASSESSMENT AND PLAN: 1. Nonoliguric acute kidney injury with unknown baseline creatinine. Etiology of acute kidney inju ry was secondary to hemodynamics and lupus glomerulonephritis class 3, focal proliferative. The pat ient is clinically improved with IV fluids and immunosuppressive therapy. The patient is status pos t Solu-Medrol bolus of 1 gram. Currently on prednisone 60 mg daily and CellCept 1 gram b.i.d. Plan is for the patient to be discharged home with a nephrology followup. The patient should have CellC ept increased to 1.5 g b.i.d. within 1 week's time, and anticipate slow prednisone taper to 50 mg da holly with 1 week's time. I spoke with field nurse case manager to arrange for outpatient nephrology and rheumato logy appointment prior to discharge. Once those appointments are made, the patient may be discharge d home. We will continue to monitor. 2. Systemic lupus erythematosus. The patient is stable. Continue CellCept and prednisone. 3. Mineral bone disorder. Continue to calcium and phosphorus levels. 4. Dysphagia, improved. 5. Leukopenia, improved. 6. General debility. Continue physical therapy. 7. Anemia of chronic disease. Continue to monitor hemoglobin and hematocrit levels. Dictated By: ISMAEL WALL/CURT Conf#: [id number] DID#: [id number]
[2016-05-20 20:23] VITALS: BP 122/78; RESP 18
[2016-05-21] MEDS: ACETAMINOPHEN 325 MG TAB PO PRN (01:03)
[2016-05-21 07:00] VITALS: BP 127/86; RESP 19
[2016-05-21] MEDS: MYCOPHENOLATE 250 MG CAP PO SCH (08:43)
[2016-05-21] MEDS: FAMOTIDINE 20 MG TAB PO SCH (08:44)
[2016-05-21] MEDS: predniSONE 20 MG TAB PO SCH (08:44)
--- NOTE | 2016-05-21 09:26 | PN ---
DATE: 05/21/2016 SUBJECTIVE: The patient is stable. No acute events overnight. No fevers, chills, nausea or vomiti ng. No shortness of breath. OBJECTIVE: VITAL SIGNS: Blood pressure 127/86, respirations 19, pulse 92, temperature 97.5. HEENT: Head is normocephalic. NECK: Supple. HEART: Regular rate. LUNGS: Showed diminished breath sounds at the base. ABDOMEN: Soft, nontender to palpation. No rebound or guarding. EXTREMITIES: Negative for clubbing or cyanosis. No edema. DERMATOLOGIC: No rashes. MUSCULOSKELETAL: Have no joint effusion. NEUROLOGIC: No change in exam. MEDICATIONS: The patient's medications have been reviewed. LABORATORY DATA: Has been reviewed. No new labs. ASSESSMENT AND PLAN: 1. Nonoliguric acute kidney injury, with an unknown baseline creatinine. Etiology of acute kidney injury is secondary to hemodynamics and lupus glomerulonephritis class 3. The patient is clinically improved with IV fluids and immunosuppressive therapy. The patient is status post Solu-Medrol, 1 g julian x3 days. Currently on prednisone 60 mg daily and CellCept 1 gram b.i.d. Plan is for the evert t to be discharged home once a nephrology followup has been arranged. The patient will have his Evette lCept increased to 1.5 mg b.i.d. in 1 week's time and anticipate a slow prednisone taper to 50 mg da holly in 1 week's time. I spoke with the patient and the case assistant. They are aware of the plan. Otherwise, will continue the current treatment plan, supportive care and renally dose all meds. 2. Systemic lupus erythematosus. The patient is stable. Continue CellCept and prednisone. 3. Mineral bone disorder. Continue to monitor calcium and phos levels. 4. General debility. Continue physical therapy. 5. Anemia of chronic disease. Hemoglobin level is stable. Will continue to monitor. Dictated By: ISMAEL WALL/CURT Conf#: [id number] DID#: [id number]
--- NOTE | 2016-05-21 10:13 | PN ---
Date/Time of Note Date/Time of Note DATE: 05/21/16 TIME: 10:12 Assessment/Plan VTE Prophylaxis VTE Prophylaxis Intervention: SCD's Lines/Catheters [facility] Saline Lock Urinary Cath still in place: No Assessment/Plan Chief Complaint/Hosp Course 1. Systemic lupus erythematosus with positive serology including double stranded DNA. The patient on steroids and CellCept. Being followed by rheumatology. 2. Acute kidney injury. Nonoliguric. Secondary to lupus glomerulonephritis. The patient being followed by nephrology. Improving BUN and creatinine. 3. Microcytic, hypochromic anemia. Monitor H and H closely. Iron panel showing low iron saturation. 4. Pancytopenia, most probably secondary to underlying lupus. Mostly resolved. 5. Testicular swelling. Ultrasound showing small bilateral hydroceles. No evidence of any testicular mass. 6. Fluids, electrolytes, and nutrition. Regular diet as tolerated. 7. Deep venous thrombosis prophylaxis with bilateral sequential compression devices. 8. Gastrointestinal prophylaxis. Histamine 2 receptor blockers. 9. Plan. Continue current care. The patient will be discharged home once outpatient nephrology follow-up is set up. Case discussed with Dr. Soto. Problems: Subjective 24 Hr Interval Summary Free Text/Dictation Denies any complaints. Awaiting outpatient nephrology follow-up to be arranged. Exam/Review of Systems Vital Signs Vitals Vital Signs Date Time Temp Pulse Resp B/P Pulse Ox O2 Delivery O2 Flow Rate FiO2 05/21/16 07:00 97.5 92 19 127/86 95 05/18/16 06:45 Room Air Intake and Output 05/20/16 05/20/16 05/21/16 14:59 22:59 06:59 Intake Total 1780 ml 1520 ml Output Total 400 ml Balance 1380 ml 1520 ml Exam GENERAL: This is a well-built, well-nourished male patient lying in bed in no apparent distress. HEENT: Head normocephalic and atraumatic. Eyes: Anicteric sclerae. Conjunctivae clear. ENT: Nasal septum is midline. Oral mucosa is moist. NECK: Supple. No JVD noticed. RESPIRATORY: Bilaterally clear to auscultation. No adventitious breath sounds heard. No use of accessory muscles of respiration. CARDIAC: Regular rate and rhythm. No murmurs heard. ABDOMEN: Soft, nontender and nondistended. Bowel sounds positive in all 4 quadrants. GENITOURINARY: Deferred. EXTREMITIES: No cyanosis, no clubbing, no edema. Peripheral pulses are palpable. NEUROLOGIC: The patient is awake, alert and oriented. Cranial nerves are grossly intact. Results Result Diagram: 05/20/16 0500 05/19/16 0445 Medications Medications Current Medications Ondansetron HCl (Zofran Inj) 4 mg Q6H PRN IV NAUSEA AND/OR VOMITING; Start at 19:30 Acetaminophen (Tylenol Tab) 650 mg Q6H PRN PO PAIN LEVEL 1-3 OR FEVER Last administered on 05/21/16 01:03; Admin Dose 650 MG; Start 05/10/16 at 19:30 Acetaminophen/ Hydrocodone Bitart ([place] (5/325)) 1 tab Q6H PRN PO MODERATE PAIN LEVEL 4-6; Start 05/10/16 at 19:30 Morphine Sulfate (morphine) 2 mg Q4H PRN IV SEVERE PAIN LEVEL 7-10; Start 05/10 at 19:30 Docusate Sodium (Colace) 100 mg Q12H PRN PO CONSTIPATION; Start 05/10/16 at 19: 30 Zolpidem Tartrate (Ambien) 5 mg QHS PRN PO SLEEP; Start 05/10/16 at 19:30 Prednisone (Prednisone) 60 mg DAILY PO Last administered on 05/21/16 08:44; Admin Dose 60 MG; Start 05/13/16 at 09:00 Famotidine (Pepcid) 20 mg BID PO Last administered on 05/21/16 08:44; Admin Dose 20 MG; Start 05/17/16 at 21:00 Mycophenolate Mofetil (Cellcept) 1,000 mg BID PO Last administered on 08:43; Admin Dose 1,000 MG; Start 05/19/16 at 09:00 JOHN CONDON NP May 21, 2016 10:13
--- NOTE | 2016-05-21 12:34 | DS ---
DATE OF ADMISSION: 05/10/2016 DATE OF DISCHARGE: 05/21/2016 FINAL DIAGNOSES: 1. Systemic lupus erythematosus. 2. 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 3. Microcytic hypochromic anemia. 4. Pancytopenia. Largely resolved. 5. Small bilateral hydroceles. CONSULTATIONS: 1. Dr. Avery Romero, nephrology. 2. Dr. Corwin Duque, rheumatology. HOSPITAL COURSE: This is a 36-year-old male who was recently diagnosed with lupus. He came to the emergency room with chief complaint of generalized weakness, joint pain as well as facial rash. In the emergency room, the patient was noticed to be in acute renal failure with a BUN and creatinine of 33 and 1.97 respectively. The patient was also noticed to be pancytopenic in the emergency room. The patient underwent a CT scan of the abdomen and pelvis in the emergency room that showed prominent bilateral perinephritic stranding. The CT also showed multiple prominent retroperitoneal and iliac chain lymph nodes as well as an 11 mm aortocaval lymph node and a 1.6 cm left pelvic sidewall lymph node. Provided the patient's history of present illness and the clinical findings, a clinical decision was made to admit the patient to inpatient setting to have him further evaluated. The patient was admitted to inpatient medical/surgical floor. A nephrology and rheumatology consult was called on this patient. The patient was confirmed to have systemic lupus erythematosus with positive serology including double stranded DNA. The patient was started on high dose steroids and immunosuppressants. The patient was also noticed to have acute kidney injury. The patient underwent a renal biopsy. 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 Hence, the patient was maintained on prednisone and CellCept. The patient's CellCept dosing was increased once lupus nephritis has been confirmed. The patient was also noticed to have pancytopenia. This could be most probably secondary to underlying lupus. The patient's pancytopenia improved through the patient's hospital course. The patient had some testicular swelling. In addition, the patient's abdominal and pelvic CT scan showed multiple retroperitoneal and iliac chain lymph nodes. Hence, a testicular ultrasound was ordered to evaluate for any underlying testicular malignancy. The patient's testicular ultrasound revealed bilateral small hydroceles and no evidence of any testicular mass. The patient's kidney function improved throughout the hospital course. The patient's joint pain and malar rash improved with the treatment strategy. The patient was cleared by consultants to be discharged home, provided the patient has outpatient followup with nephrology and rheumatology. DISCHARGE DISPOSITION/PLAN: The patient will be discharged home today. The patient was instructed to take medications as per prescription. He was instructed to make sure not to skip any medications and very important to taper medications he is getting as instructed by outpatient nephrology. He was instructed to follow up with outpatient nephrology and outpatient rheumatology in 1 week. Case management order was done to arrange for outpatient nephrology and rheumatology followup. He was instructed to take a regular diet as tolerated and to resume activities as tolerated. He was instructed to avoid using NSAIDS for pain control because of possible worsening renal function and increased risk of gastric ulcerations since the patient is getting oral steroids. The patient verbalized understanding of his discharge instructions. CONDITION AT DISCHARGE: Stable. DISCHARGE MEDICATIONS: 1. Pepcid 20 mg p.o. b.i.d. 2. CellCept 1000 mg p.o. b.i.d. for 14 days. 3. Prednisone 60 mg p.o. daily x14 days, followed by prednisone 50 mg p.o. daily for 14 days. (The rest of prednisone tapering to be done by outpatient nephrology). PERTINENT LABORATORY AND DIAGNOSTIC DATA: 1. Chest x-ray upon admission: No acute disease. 2. CT scan of the abdomen and pelvis. Prominent bilateral perinephric stranding findings can be seen with pyelonephritis. Bladder is distended and there is a mild left greater than right hydronephrosis. Multiple prominent retroperitoneal and iliac chain lymph nodes are noted along with an 11 mm aortocaval lymph node and a 1.6 cm left pelvic sidewall lymph node. Findings are nonspecific, although in a male patient of this age, differential considerations include a testicular malignancy. A scrotal ultrasound is recommended for further evaluation. Tiny fat containing umbilical hernia. 3. Testicular ultrasound. Small bilateral hydroceles and small right hydrocele. No evidence of testicular mass. 4. Abdominal ultrasound. Small gallbladder polyp measuring 0.2 cm. Mild gallbladder wall thickening with adjacent free fluid. This may indicate acalculous cholecystitis. 5. Bilateral feet x-ray. No evidence of fracture identified in either foot. 6. Latest CBC: WBC 6.4, hemoglobin 8.5, hematocrit 24.9, platelet count 240. 7. Latest BMP: Sodium 142, potassium 3.6, chloride 110, carbon dioxide 26, anion gap 10, BUN 22, creatinine 0.95, glucose 77, calcium 8.4, phosphorus 3.9, magnesium 1.8. 8. Hemoglobin A1c 5.9. 9. Fasting lipid panel: Triglycerides 117, total cholesterol 77, LDL 41, HDL 13. 10. Human immunodeficiency virus 1 and 2 antibody negative. 11. Hepatitis serology negative. 12. Complement C3 less than 40. 13. Complement C4 less than 8. 14. Double stranded DNA 961. 15. RINKU screen positive, RINKU titer 1:1280. At this time, I would like to thank all the consultants for seeing the patient and providing clinical recommendations. The case and management of this patient was fully discussed with Dr. Wang. Approximately 40 minutes was spent on coordinating the discharge on this patient. Note: The patient had discharge orders on 05/19/2016. However, this was held because of a delay in an outpatient followup appointment being set up. Other than that there was no change in the patient's clinical status. Please refer to case management notes for details. JOHN WANG MD, AM/CURT Conf#: [id number] DID#: [id number] MTDD
== END 2016-05-21 13:20 | disposition home or self-care (01) | DRG 545 ==
LOC: FTE 13:44 → MS1 17:57
PROVIDERS: ADMIT Internal Medicine; ATTEND Internal Medicine
PROC: 0TB13ZX Excision of Left Kidney, Percutaneous Approach, Diagnostic (ICD-10-PCS; principal; 2016-05-13)
DX: M32.15 Tubulo-interstitial nephropathy in systemic lupus erythematosus (principal); N17.0 Acute kidney failure with tubular necrosis; K85.90 Acute pancreatitis without necrosis or infection, unspecified; D61.818 Other pancytopenia; B37.0 Candidal stomatitis; E87.1 Hypo-osmolality and hyponatremia; R63.4 Abnormal weight loss; Z68.27 Body mass index [BMI] 27.0-27.9, adult; E86.0 Dehydration; F10.21 Alcohol dependence, in remission; K12.0 Recurrent oral aphthae; N43.3 Hydrocele, unspecified; R59.1 Generalized enlarged lymph nodes; R13.10 Dysphagia, unspecified
CPT/HCPCS: 36415; 71010; 74176; 76700; 76870; 80048; 80053; 80061; 81001; 81003; 82043; 82595; 83036; 83540; 83690; 83735; 83930; 84100; 84155; 84300; 84439; 84443; 84481; 84484; 85025; 85610; 85651; 85730; 86021; 86038; 86160; 86226; 86235; 86430; 86703; 86704; 86709; 86803; 86850; 86900; 86901; 86920; 87340; 93005; 96374; 96375; J1200; J2250; J2270; J2405; J2930; J3010; J7030; J7512; J7517

== ENCOUNTER 2016-06-07 20:29 | Emergency (ER) | payer OTHER ==
[~2016-06-07] VITALS: Ht 165.1 cm; Wt 78.5 kg
[~2016-06-07 20:29] MED LIST: FAMO20TA18 PO; MYCO250C3 PO; PRED20 PO
[2016-06-07 20:36] VITALS: Ht 165.1 cm; Wt 78.5 kg
[2016-06-07] MEDS ORDERED: ACETAMINOPHEN 500 MG TAB PO STA (21:55)
--- NOTE | 2016-06-07 21:59 | ERD ---
ER Documentation Chief Complaint Date/Time DATE: 06/07/16 TIME: 21:57 Chief Complaint pt reports abd and itching after taking sulfa antibiotic which resolved, now just feeling chills HPI 36-year-old male presents here in emergency department for complaints of itching and abdominal pain after taking Bactrim this morning. Patient took Bactrim, started to have itching and abdominal pain afterwards, patient took Benadryl at home, at this time, all the symptoms has resolved. Now he just feels chills. Patient does not have any shortness breath or wheezing. Patient does not have any stridor. Patient does not have any abdominal pain at this time , does not have any chest pain or stridor. Patient does not have any shortness of breath at this time. Patient also verbalized feeling anxious from all his symptoms. ROS All systems reviewed and are negative except as per history of present illness. Medications Home Meds Active Scripts Ciprofloxacin Hcl* (Ciprofloxacin Hcl*) 500 Mg Tablet, 500 MG PO BID for 10 Days , TAB Prov:KALYN DU NP 06/07/16 Alprazolam* (Xanax*) 1 Mg Tab, 1 MG PO Q8H Y for ANXIETY, #10 TAB Prov:KALYN DU NP 06/07/16 Diphenhydramine Hcl* (Benadryl*) 50 Mg Cap, 50 MG PO Q6H Y for ITCHING/RASH, # 30 CAP Prov:KALYN DU NP 06/07/16 Prednisone (Prednisone) 20 Mg Tab, 60 MG PO DAILY for 14 Days, TAB Prednisone 60 mg p.o. daily 2 weeks, then Prednisone 50 mg p.o. daily 2 weeks Rest of the prednisone tapering to be done by outpatient nephrology. Prov:JOHN CONDON NP 05/19/16 Mycophenolate Mofetil* (Cellcept*) 250 Mg Capsule, 1000 MG PO BID for 14 Days, CAP Prov:JOHN CONDON NP 05/19/16 Famotidine* (Famotidine*) 20 Mg Tablet, 20 MG PO BID for 30 Days, TAB Prov:JOHN CONDON NP 05/19/16 Allergies Allergies: Coded Allergies: sulfamethoxazole (Verified Allergy, Intermediate, rash, 06/07/16) trimethoprim (Verified Allergy, Intermediate, rash, 06/07/16) PMhx/Soc History of Surgery: Yes (appendectomy) Anesthesia Reaction: No Hx Neurological Disorder: No Hx Respiratory Disorders: No (Pt denies respiratory disorders such as asthma, etc) Hx Cardiac Disorders: No (Pt denies Cardiac disorders such as HTN, arryhtmia, valscular etc) Hx Psychiatric Problems: No Hx Miscellaneous Medical Probl: Yes (lupus) Hx Alcohol Use: No Hx Substance Use: No Hx Tobacco Use: No FmHx Family History: No coronary disease, No diabetes, No other Physical Exam Vitals Vital Signs Date Time Temp Pulse Resp B/P Pulse Ox O2 Delivery O2 Flow Rate FiO2 06/07/16 20:36 98.3 95 18 140/89 99 Physical Exam GENERAL: The patient is well developed and appropriate for usual state of health, in no apparent distress. CHEST: Clear to auscultation bilaterally. There are no rales, wheezes or rhonchi. HEART: Regular rate and rhythm. No murmurs, clicks, rubs or gallops. No S3 or S4. ABDOMEN: Soft, nontender and nondistended. Good bowel sounds. No rebound or guarding. No gross peritonitis. No gross organomegaly or masses. No Lentz sign or McBurney point tenderness. BACK: No midline or flank tenderness. EXTREMITIES: Equal pulses bilaterally. There is no peripheral clubbing, cyanosis or edema. No focal swelling or erythema. Full range of motion. Grossly neurovascularly intact. NEURO: Alert and oriented. Cranial nerves 2-12 intact. Motor strength in all 4 extremities with 5/5 strength. Sensation grossly intact. Normal speech and gait. SKIN: There is no apparent rash or petechia. The skin is warm and dry. HEMATOLOGIC AND LYMPHATIC: There is no evidence of excessive bruising or lymphedema. No gross cervical, axillary, or inguinal lymphadenopathy. Result Diagram: 06/07/16220906/07/162209 Results 24 hrs Laboratory Tests Test 06/07/16 22:10 Alanine Aminotransferase (ALT/SGPT) 38IU/L Albumin 3.1g/dl Albumin/Globulin Ratio 0.96 Alkaline Phosphatase 96IU/L Anion Gap 14 Aspartate Amino Transf (AST/SGOT) 28IU/L Basophils # Pending Basophils % Pending Blood Morphology Comment Blood Urea Nitrogen 24mg/dl Calcium Level 8.8mg/dl Carbon Dioxide Level 30mmol/L Chloride Level 103mmol/L Creatinine 0.95mg/dl Direct Bilirubin 0.00mg/dl Eosinophils # Pending Eosinophils % Pending Globulin 3.20g/dl Glucose Level 82mg/dl Hematocrit 28.3% Hemoglobin 9.4g/dl Indirect Bilirubin 0.0mg/dl Lymphocytes # Pending Lymphocytes % Pending Mean Corpuscular Hemoglobin 27.2pg Mean Corpuscular Hemoglobin Concent 33.3g/dl Mean Corpuscular Volume 81.4fl Mean Platelet Volume 8.2fl Monocytes # Pending Monocytes % Pending Neutrophils # Pending Neutrophils % Pending Nucleated Red Blood Cells # Pending Nucleated Red Blood Cells % Pending Platelet Count 30137^3/UL Potassium Level 3.2mmol/L Red Blood Count 3.4710^6/ul Red Cell Distribution Width 19.2% Sodium Level 144mmol/L Total Bilirubin 0.0mg/dl Total Protein 6.3g/dl Urine Bacteria FEW Urine Bilirubin NEGATIVE Urine Clarity SLIGHTLY CLOUDY Urine Coarse Granular Casts OCCASIONAL Urine Color LT. YELLOW Urine Glucose NEGATIVE% Urine Hemoglobin 3+ Urine Ketones NEGATIVE Urine Leukocyte Esterase 1+ Urine Microscopic RBC 10-25/HPF Urine Microscopic WBC 25-50/HPF Urine Nitrite NEGATIVE Urine Specific Dorris 1.010 Urine Total Protein 2+ Urine Transitional Epithelial Cells FEW Urine Urobilinogen 0.2 E.U./dL Urine pH 5.5 White Blood Count 12.910^3/ul Current Medications Medications (Trade) Dose Ordered Sig/Low Route PRN Reason Start Time Stop Time Status Last Admin Dose Admin Acetaminophen (Tylenol Tab) 500 mg ONCE STAT PO 06/07/16 21:55 06/07/16 21:57 DC 06/07/16 22:26 Alprazolam (Xanax) 1 mg ONCE ONCE PO 06/07/16 22:00 06/07/16 22:06 DC 06/07/16 22:26 Ceftriaxone Sodium (Rocephin) 1 gm ONCE ONCE IM 06/08/16 00:00 06/08/16 00:01 UNV Analysis given here in emergency department to help with anxiety and Tylenol was given for pain. Patient verbalized much better afterwards. IM Rocephin was given here in emergency department for urinary tract infection. Tolerated medication well. Microbiology INFLUENZA A & B BY EIA Final INFLU A&B BY EIA INFLUENZA A NEGATIVE (Ref Range Neg) INFLUENZA B NEGATIVE (Ref Range Neg) Procedures/MDM Medical decision making: Patient's symptoms of chills, most likely can be from the urinary tract infection that he had, patient was given IM Rocephin here in emergency department, will be given prescription for home with ciprofloxacin for this. Patient has mild leukocytosis from this. Urine culture was sent. No symptoms of sepsis at this time. Patient appears well and is hemodynamically stable. Patient's itching all over the body most likely is consistent with possible allergic reaction to Bactrim DS. Patient does not have any abdominal pain evaluation, abdominal exam is normal. Liver function tests are normal. No suspicion for abdominal emergencies at this time. Prescription will be given for ciprofloxacin, Benadryl, is advised to follow-up with primary care doctor in 2-3 days for reevaluation of symptoms. Xanax (10 pills) will be given also for his anxiety. Patient is advised to return to emergency department for any worsening symptoms. Departure Diagnosis: Primary Impression: Allergic reaction Encounter type: initial encounter Qualified Code: T78.40XA - Allergic reaction, initial encounter Additional Impressions: UTI (urinary tract infection) Urinary tract infection type: acute cystitis Hematuria presence: without hematuria Qualified Code: N30.00 - Acute cystitis without hematuria Anxiety Condition: Stable Patient Instructions: Allergic Reaction, Drug, Understanding Urinary Tract Infections (UTIs) KALYN DU NP Jun 07, 2016 21:59
[2016-06-07] MEDS ORDERED: ALPRAZOLAM 0.25 MG TAB PO ONE (22:00)
[2016-06-07 22:34] LABS: BASOPHILS % 0.2 % (0.0-2.0); EOSINOPHILS % 0.1 % (0.0-7.0); HEMATOCRIT 28.3 % (42.0-52.0); HEMOGLOBIN 9.4 g/dl (14.0-18.0); LYMPHOCYTES # 0.4 10^3/ul (0.8-2.9); LYMPHOCYTES % 3.4 % (15.0-51.0); MEAN CORPUSCULAR HEMOGLOBIN 27.2 pg (29.0-33.0); MEAN CORPUSCULAR HGB CONC 33.3 g/dl (32.0-37.0); MEAN CORPUSCULAR VOLUME 81.4 fl (82.0-101.0); MEAN PLATELET VOLUME 8.2 fl (7.4-10.4); MONOCYTE # 0.1 10^3/ul (0.3-0.9); MONOCYTES % 0.4 % (0.0-11.0); NEUTROPHIL # 12.4 10^3/ul (1.6-7.5); NEUTROPHILS % 95.9 % (39.0-77.0); PLATELET COUNT 348 10^3/UL (140-440); RED BLOOD COUNT 3.47 10^6/ul (4.70-6.10); RED CELL DISTRIBUTION WIDTH 19.2 % (11.5-14.5); UNCORRECTED WBC 12.9 10^3/ul (4.8-10.8); WHITE BLOOD COUNT 12.9 10^3/ul (4.8-10.8)
[2016-06-07 22:35] LABS: CONDITION 1; LH ANALYZER COMMENTS 1
[2016-06-07 22:37] LABS: ALBUMIN 3.1 g/dl (3.3-4.9)
[2016-06-07 22:38] LABS: POTASSIUM 3.2 mmol/L (3.5-5.1)
[2016-06-07 22:40] LABS: CREATININE 0.95 mg/dl (0.61-1.24)
[2016-06-07 22:41] LABS: ALBUMIN/GLOBULIN RATIO 0.96; CALCIUM 8.8 mg/dl (8.4-10.2); TOTAL PROTEIN 6.3 g/dl (6.1-8.1)
[2016-06-07 22:46] LABS: ADD UMIC YES; URINE BILIRUBIN (Dip) NEGATIVE (NEGATIVE); URINE BLOOD (Dip) 3+ (NEGATIVE); URINE COLOR LT. YELLOW (YELLOW); URINE GLUCOSE (Dip) NEGATIVE (NEGATIVE); URINE KETONES (Dip) NEGATIVE (NEGATIVE); URINE LEUKOCYTE ESTERASE (Dip) 1+ (NEGATIVE); URINE NITRITE (Dip) NEGATIVE (NEGATIVE); URINE TOTAL PROTEIN (Dip) 2+ (NEGATIVE); URINE UROBILINOGEN (Dip) 0.2 E.U./dL (0.1-1.0)
[2016-06-07 23:26] LABS: BACTERIA,URINE FEW; TRANSITIONAL EPI CELLS,URINE FEW
[2016-06-07] MEDS ORDERED: BEN50 PO (23:42)
[2016-06-07] MEDS ORDERED: CIPR500T4 PO (23:42)
[2016-06-07] MEDS ORDERED: ALPR1TAB2 PO (23:42)
[2016-06-07 23:46] LABS: PLATELET ESTIMATE PLT APPEAR ADEQUATE
[2016-06-08] MEDS ORDERED: CEFTRIAXONE 1 GM INJ IM ONE
[2016-06-08 00:10] VITALS: BP 135/82; PULSE 75; RESP 18; TEMP 98.3
== END 2016-06-08 00:10 | disposition home or self-care (01) ==
LOC: FTE 20:29
DX: L29.9 Pruritus, unspecified (principal); N30.00 Acute cystitis without hematuria; F41.9 Anxiety disorder, unspecified; T37.8X5A Adverse effect of other specified systemic anti-infectives and antiparasitics, initial encounter; T37.0X5A Adverse effect of sulfonamides, initial encounter; R10.9 Unspecified abdominal pain
CPT/HCPCS: 36415; 80053; 81001; 85025; 87086; 87400; 96372; 99284; J0696; 81003

== ENCOUNTER 2016-06-25 14:16 | Inpatient (IN) | payer BC, OTHER ==
[~2016-06-25] VITALS: Ht 165.1 cm; Wt 72.9 kg
[~2016-06-25 14:16] MED LIST changes: +ALPR1TAB2 PO; +BEN50 PO; +CIPR500T4 PO
[2016-06-25] MEDS ORDERED: SOD CHLORIDE 0.9% 1,000 ML IV STA (15:06)
[2016-06-25 15:50] LABS: ADD SCAN DIFF NO
[2016-06-25 15:55] LABS: ABNORMAL IP MESSAGE 1; BASOPHILS % 0.1 % (0.0-2.0); EOSINOPHILS % 0.2 % (0.0-7.0); HEMATOCRIT 24.7 % (42.0-52.0); LYMPHOCYTES # 0.5 10^3/ul (0.8-2.9); MEAN CORPUSCULAR HEMOGLOBIN 26.6 pg (29.0-33.0); MEAN CORPUSCULAR HGB CONC 32.4 g/dl (32.0-37.0); MEAN CORPUSCULAR VOLUME 82.1 fl (82.0-101.0); MEAN PLATELET VOLUME 9.8 fl (7.4-10.4); MONOCYTE # 0.8 10^3/ul (0.3-0.9); NEUTROPHIL # 9.1 10^3/ul (1.6-7.5); NEUTROPHILS % 86.1 % (39.0-77.0); PLATELET COUNT 396 10^3/UL (140-415); RED BLOOD COUNT 3.01 10^6/ul (4.70-6.10); RED CELL DISTRIBUTION WIDTH 14.9 % (11.5-14.5); WHITE BLOOD COUNT 10.5 10^3/ul (4.8-10.8)
[2016-06-25] MEDS ORDERED: MYCO500T3 PO (15:56)
[2016-06-25 16:02] LABS: CHLORIDE 98 mmol/L (97-110)
[2016-06-25 16:03] LABS: ALBUMIN 2.9 g/dl (3.3-4.9); INR 1.09; POTASSIUM 3.1 mmol/L (3.5-5.1); PROTIME 14.1 Sec (12.2-14.2); PT RATIO 1.1; SODIUM 136 mmol/L (135-144)
[2016-06-25 16:04] LABS: PARTIAL THROMBOPLASTIN TIME 42.2 Sec (25.0-35.0)
[2016-06-25 16:05] LABS: AMYLASE 60 U/L (11-123)
[2016-06-25 16:06] LABS: ALANINE AMINOTRANSFERASE 28 IU/L (13-69); ALKALINE PHOSPHATASE 77 IU/L (42-121); ANION GAP 16 (8-16); ASPARTATE AMINO TRANSFERASE 24 IU/L (15-46); BILIRUBIN,INDIRECT 0.2 mg/dl (0-1.1); BILIRUBIN,TOTAL 0.2 mg/dl (0.2-1.3); BLOOD UREA NITROGEN 16 mg/dl (7-20); CALCIUM 8.5 mg/dl (8.4-10.2); CARBON DIOXIDE 25 mmol/L (21-31); CREATININE 1.78 mg/dl (0.61-1.24); GLUCOSE 105 mg/dl (70-220)
[2016-06-25 16:55] LABS: TROPONIN-I < 0.012 ng/ml (0.00-0.12)
--- NOTE | 2016-06-25 17:48 | RADRPT ---
PROCEDURE: CT Abdomen and Pelvis without contrast. CLINICAL INDICATION: Abdominal and pelvic pain. TECHNIQUE: CT scan of the abdomen and pelvis without contrast was performed. Coronal and sagittal reformatted images were obtained from the axial source images. Images were reviewed on a high-resolu [employer] PACS workstation. Total exam DLP is 395.25 mGy-cm. CTDIvol is 7.07 mGy. One or more of the fo llowin dose reduction techniques were used: Automated exposure control, adjustment of the mA and/or kV according to patient size, use of iterative reconstruction technique. COMPARISON: CT scan of the abdomen and pelvis dated 05/10/2016. FINDINGS: The lung bases are normal. There is no pleural effusion. The liver is normal in size and attenuation. There is no focal hepatic lesion. The gallbladder and bile ducts are normal. The spleen is normal in size. There is no focal splenic lesion. Both adrenals are normal with no enlargement or mass. The pancreas is unremarkable with no mass or evidence of pancreatitis. There is no renal mass or hydronephrosis. There is no renal calculus or ureteral calculus. Mild bi lateral perinephric edema is unchanged.. The abdominal aorta is not dilated. Multiple small retroperitoneal lymph nodes appears similar to the prior study. There is no pelvic lymphadenopathy or mass. The bladder and distal ureters are normal. The periappendiceal region is unremarkable with no evidence of appendicitis. There is diverticulosis of the ascending colon without evidence of diverticulitis. The bowel and me sentery are otherwise normal. There is a small fat-containing umbilical hernia, unchanged. There i s no herniated bowel. There is no free fluid or free gas. The osseous structures are unremarkable with no fracture or lytic lesion. IMPRESSION: 1. Mild bilateral perinephric edema, unchanged. 2. Multiple small retroperitoneal lymph nodes, unchanged. 3. Diverticulosis of the ascending colon without evidence of diverticulitis. 4. Small fat-containing umbilical hernia, unchanged. No herniated bowel. 5. Otherwise unremarkable study. RPTAT: QQ .Stew Garcia MD, MD Date Time Electronically viewed and signed by .Stew Garcia MD, MD on 06/25/2016 17:48 .R/
[2016-06-25] MEDS ORDERED: POTASSIUM CHLORIDE (SR) 10 MEQ TAB PO ONE (18:00)
[2016-06-25] MEDS ORDERED: CEFTRIAXONE 1 GM/50 ML (PMX) 50 ML IVPB ONE (18:30)
[2016-06-25] MEDS ORDERED: ACETAMINOPHEN 325 MG TAB PO PRN (18:30)
[2016-06-25] MEDS ORDERED: ONDANSETRON 4 MG INJ IV PRN ×2 (18:30→23:00)
[2016-06-25 18:47] LABS: ADD UMIC YES; URINE BILIRUBIN (Dip) NEGATIVE (NEGATIVE); URINE BLOOD (Dip) 3+ (NEGATIVE); URINE GLUCOSE (Dip) NEGATIVE (NEGATIVE); URINE KETONES (Dip) NEGATIVE (NEGATIVE); URINE LEUKOCYTE ESTERASE (Dip) 1+ (NEGATIVE); URINE NITRITE (Dip) NEGATIVE (NEGATIVE); URINE TOTAL PROTEIN (Dip) 2+ (NEGATIVE); URINE UROBILINOGEN (Dip) 0.2 E.U./dL (0.1-1.0)
[2016-06-25 18:55] LABS: URINE COLOR YELLOW (YELLOW)
[2016-06-25 19:06] LABS: BACTERIA,URINE MODERATE; RENAL EPITHELIAL CELLS,URINE FEW
--- NOTE | 2016-06-25 19:28 | ERA ---
ER Documentation Chief Complaint Date/Time DATE: 06/25/16 TIME: 19:27 Chief Complaint AP AND LOWER BACK/FLANK PAIN SINCE TUESDAY HPI This is a very pleasant 36-year-old male with a known history of lupus nephritis on immunosuppressive medications that presents to the emergency department complaining of 3 days of bilateral flank pain, fever shaking and chills and decrease in appetite. He was seen just prior to arrival by his baggage security checker Dr. Maria and instructed to come to the emergency department for further evaluation due to the severity of his symptoms. The patient had taken antipyretics prior to arrival. He is currently on CellCept. The patient denies hemoptysis hematemesis or melanotic stools. He is experiencing frequency urgency dysuria with no gross hematuria. He denies any shortness of breath at rest or exertion. ROS All systems reviewed and are negative except as per history of present illness. Medications Home Meds Reported Medications Mycophenolate Mofetil* (Mycophenolate Mofetil*) 500 Mg Tablet, 1000 MG PO BID, TAB 06/25/16 Discontinued Scripts Ciprofloxacin Hcl* (Ciprofloxacin Hcl*) 500 Mg Tablet, 500 MG PO BID for 10 Days , TAB Prov:KALYN UD NP 06/07/16 Alprazolam* (Xanax*) 1 Mg Tab, 1 MG PO Q8H Y for ANXIETY, #10 TAB Prov:KALYN DU NP 06/07/16 Diphenhydramine Hcl* (Benadryl*) 50 Mg Cap, 50 MG PO Q6H Y for ITCHING/RASH, # 30 CAP Prov:KALYN DU NP 06/07/16 Prednisone (Prednisone) 20 Mg Tab, 60 MG PO DAILY for 14 Days, TAB Prednisone 60 mg p.o. daily 2 weeks, then Prednisone 50 mg p.o. daily 2 weeks Rest of the prednisone tapering to be done by outpatient nephrology. Prov:JOHN CONDON NP 05/19/16 Mycophenolate Mofetil* (Cellcept*) 250 Mg Capsule, 1000 MG PO BID for 14 Days, CAP Prov:JOHN CONDON NP 05/19/16 Famotidine* (Famotidine*) 20 Mg Tablet, 20 MG PO BID for 30 Days, TAB Prov:JOHN CONDON NP 05/19/16 Allergies Allergies: Coded Allergies: sulfamethoxazole (Verified Allergy, Intermediate, rash, 06/25/16) trimethoprim (Verified Allergy, Intermediate, rash, 06/25/16) PMhx/Soc History of Surgery: Yes (appendectomy) Anesthesia Reaction: No Hx Neurological Disorder: No Hx Respiratory Disorders: No (Pt denies respiratory disorders such as asthma, etc) Hx Cardiac Disorders: No (Pt denies Cardiac disorders such as HTN, arryhtmia, valscular etc) Hx Psychiatric Problems: No Hx Miscellaneous Medical Probl: Yes (lupus) Hx Alcohol Use: No Hx Substance Use: No Hx Tobacco Use: No Smoking Status: Never smoker Physical Exam Vitals Vital Signs Date Time Temp Pulse Resp B/P Pulse Ox O2 Delivery O2 Flow Rate FiO2 06/25/16 19:00 94 18 136/99 100 Room Air 06/25/16 18:12 97.8 89 18 114/75 100 Room Air 06/25/16 14:28 100.2 124 16 100/60 98 Physical Exam Constitutional:Well-developed. Well-nourished. HEENT:Normocephalic. Atraumatic.Pupils were equal round reactive to light. Dry mucous membranes.No tonsillar exudates. Neck: No nuchal rigidity. No lymphadenopathy. No posterior cervical spine tenderness or step-offs. Respiratory: Not using accessory muscles of respiration.Lungs were clear to auscultation bilaterally. No rhonchi. No rales. No wheezing. Cardiovascular: Regular rate regular rhythm.No murmurs. No rubs were appreciated.S1, S2 normal. Distal pulses are palpable 2+ bilaterally. GI: Abdomen was soft.Non Distended. No pulsatile abdominal masses or bruits. No rebound. No guarding. Bowel sounds were present and normal. Bilateral CVA tenderness Muscle skeletal: Full range of motion of both the upper and lower extremities bilaterally.Normal muscle tone.No assymetrical calf tenderness or swelling. Skin: No petechia, no purpura. No lesions on the palms or the soles of the feet. No maculopapular rash. NEURO: Patient was alert, awake, orientated x3.No facial droop. Gait observed and normal with no ataxia.Speech had regular rate and rhythm. No focal neurological deficits. Result Diagram: 06/25/16 1530 06/25/16 1545 Results 24 hrs Laboratory Tests Test 3/3/17 15:30 06/25/16 15:45 06/25/16 18:15 Basophils # 0.010^3/ul Basophils % 0.1% Eosinophils # 0.010^3/ul Eosinophils % 0.2% Hematocrit 24.7% Hemoglobin 8.0g/dl Lactic Acid Level 1.1mmol/L Lymphocytes # 0.510^3/ul Lymphocytes % 5.0% Mean Corpuscular Hemoglobin 26.6pg Mean Corpuscular Hemoglobin Concent 32.4g/dl Mean Corpuscular Volume 82.1fl Mean Platelet Volume 9.8fl Monocytes # 0.810^3/ul Monocytes % 8.0% Neutrophils # 9.110^3/ul Neutrophils % 86.1% Nucleated Red Blood Cells # 0.010^3/ul Nucleated Red Blood Cells % 0.0/100WBC Platelet Count 33855^3/UL Red Blood Count 3.0110^6/ul Red Cell Distribution Width 14.9% White Blood Count 10.510^3/ul Activated Partial Thromboplast Time 42.2Sec Alanine Aminotransferase (ALT/SGPT) 28IU/L Albumin 2.9g/dl Albumin/Globulin Ratio 0.70 Alkaline Phosphatase 77IU/L Amylase Level 60U/L Anion Gap 16 Aspartate Amino Transf (AST/SGOT) 24IU/L Blood Urea Nitrogen 16mg/dl Calcium Level 8.5mg/dl Carbon Dioxide Level 25mmol/L Chloride Level 98mmol/L Creatinine 1.78mg/dl Direct Bilirubin 0.00mg/dl Globulin 4.10g/dl Glucose Level 105mg/dl INR International Normalized Ratio 1.09 Indirect Bilirubin 0.2mg/dl Lipase 74U/L Potassium Level 3.1mmol/L Prothrombin Time 14.1Sec Prothrombin Time Ratio 1.1 Sodium Level 136mmol/L Total Bilirubin 0.2mg/dl Total Protein 7.0g/dl Troponin I < 0.012ng/ml Urine Bacteria MODERATE Urine Bilirubin NEGATIVE Urine Clarity CLOUDY Urine Coarse Granular Casts MODERATE Urine Color YELLOW Urine Glucose NEGATIVE% Urine Hemoglobin 3+ Urine Ketones NEGATIVE Urine Leukocyte Esterase 1+ Urine Microscopic RBC 10-25/HPF Urine Microscopic WBC 10-25/HPF Urine Nitrite NEGATIVE Urine Renal Epithelial Cells FEW Urine Specific [place] 1.010 Urine Total Protein 2+ Urine Urobilinogen 0.2 E.U./dL Urine Waxy Casts FEW Urine pH 5.5 Current Medications Medications (Trade) Dose Ordered Sig/Low Route PRN Reason Start Time Stop Time Status Last Admin Dose Admin Sodium Chloride (NS) 1,000 ml @ 1,000 mls/hr Q1H STAT IV 06/25/16 15:06 06/25/16 16:05 DC 06/25/16 17:17 Potassium Chloride 10 meq 10 meq ONCE ONCE PO 06/25/16 18:00 06/25/16 18:01 DC 06/25/16 18:48 Ceftriaxone Sodium (Rocephin) 50 ml @ 100 mls/hr ONCE ONCE IVPB 06/25/16 18:30 06/25/16 18:59 DC 06/25/16 18:20 Ondansetron HCl (Zofran Inj) 4 mg BRIDGE ORDER PRN IV NAUSEA AND/OR VOMITING 06/25/16 18:30 06/26/16 18:29 Acetaminophen (Tylenol Tab) 650 mg ER BRIDGE PRN PO MILD PAIN/FEVER 06/25/16 18:30 06/26/16 18:29 Procedures/MDM This patient presented to the emergency department with abdominal pain and was seen and evaluated by myself. My differential diagnosis included but was not limited to abdominal aortic aneurysm, appendicitis, pancreatitis, perforated peptic ulcer, perforated viscus, Boerhaaves syndrome or visceral pain such as diverticulitis, DKA, esophagitis, hepatitis or bowel obstruction. The patient was placed on a night monitor, continuous pulse oximetry, and IV access was established by nursing staff. The patient is CT scan of his abdomen without contrast performed by myself which indicated the followin. Mild bilateral perinephric edema, unchanged. 2. Multiple small retroperitoneal lymph nodes, unchanged. 3. Diverticulosis of the ascending colon without evidence of diverticulitis. 4. Small fat-containing umbilical hernia, unchanged. No herniated bowel. 5. Otherwise unremarkable study. 12 Lead EKG tracing ordered and reviewed by myself showed: Sinus tachycardia 106 bpm and no arrhythmia. [place] interval normal. QRS duration normal. No ST segment elevation No ST segment depression. No changes consistent with acute ischemia. The patient did have a urinary tract infection with concern of pyelonephritis. Given that the patient's immunocompromise he will be admitted to the hospital under the care of his primary care physician, Dr. Romero. Blood cultures and urine cultures were obtained and the patient received 1 g of ceftriaxone in the emergency department. He is refusing analgesic control. Departure Diagnosis: Primary Impression: Pyelonephritis Condition: Serious TERESA CHIANG Jun 25, 2016 19:28
[2016-06-25 20:21] VITALS: TEMP 98.9
[2016-06-25 21:50] VITALS: Ht 165.1 cm; Wt 72.9 kg
[2016-06-25] MEDS ORDERED: HYDROmorphONE 1 MG/ML SYG IV PRN (23:00)
[2016-06-26 02:21] VITALS: BP 138/66; PULSE 109; RESP 20
[2016-06-26 04:31] VITALS: BP 138/66; RESP 20
[2016-06-26 06:05] LABS: ADD SCAN DIFF NO
[2016-06-26 06:25] LABS: ABNORMAL IP MESSAGE 1; BASOPHILS % 0.1 % (0.0-2.0); EOSINOPHILS % 0.6 % (0.0-7.0); HEMATOCRIT 22.4 % (42.0-52.0); HEMOGLOBIN 7.2 g/dl (14.0-18.0); LYMPHOCYTES # 0.4 10^3/ul (0.8-2.9); LYMPHOCYTES % 5.8 % (15.0-51.0); MEAN CORPUSCULAR HEMOGLOBIN 26.1 pg (29.0-33.0); MEAN CORPUSCULAR HGB CONC 32.1 g/dl (32.0-37.0); MEAN CORPUSCULAR VOLUME 81.2 fl (82.0-101.0); MONOCYTE # 0.7 10^3/ul (0.3-0.9); MONOCYTES % 9.2 % (0.0-11.0); NEUTROPHIL # 5.9 10^3/ul (1.6-7.5); NEUTROPHILS % 83.9 % (39.0-77.0); PLATELET COUNT 333 10^3/UL (140-415); RED BLOOD COUNT 2.76 10^6/ul (4.70-6.10); RED CELL DISTRIBUTION WIDTH 14.8 % (11.5-14.5)
[2016-06-26 07:49] VITALS: BP 113/70; RESP 18
[2016-06-26 08:09] LABS: POTASSIUM 3.6 mmol/L (3.5-5.1)
[2016-06-26 08:12] LABS: CREATININE 1.5 mg/dl (0.61-1.24)
[2016-06-26 08:13] LABS: CALCIUM 7.9 mg/dl (8.4-10.2)
[2016-06-26] MEDS: MYCOPHENOLATE 250 MG CAP PO SCH ×2 (08:25→20:25)
--- NOTE | 2016-06-26 08:48 | HP ---
Date/Time of Note Date/Time of Note DATE: 06/26/16 TIME: 08:46 Assessment/Plan VTE Prophylaxis VTE Prophylaxis Intervention: ambulation Lines/Catheters IV Catheter Type (from [facility]): Saline Lock Urinary Cath still in place: No Assessment/Plan Chief Complaint/Hosp Course 1. Pyelonephritis- await cultures, cont ivf, iv abx, watch uop 2.lupus nephritis- resume meds, cellcept and steroids. 3. htn Problems: HPI/ROS Admit Date/Time Admit Date/Time Jun 25, 2016 at 18:29 Hx of Present Illness 36-year-old male with a known history of lupus nephritis on immunosuppressive medications that presents to the emergency department complaining of 3 days of bilateral flank pain, fever shaking and chills and decrease in appetite. He was seen just prior to arrival by his residential air sealing technician Dr. Maria and instructed to come to the emergency department for further evaluation due to the severity of his symptoms. The patient had taken antipyretics prior to arrival. He is currently on CellCept. The patient denies hemoptysis hematemesis or melanotic stools. He is experiencing frequency urgency dysuria with no gross hematuria. He denies any shortness of breath at rest or exertion. Pt. has been on immunosuppressant meds for lupus nephritis. overnight feels better, no further fevers. his creat stable. ROS Constitutional: chills, diaphoresis, fatigue, febrile, poor po Respiratory: No cough, No no complaints, No other, No pain, No pleuritic pain, No shortness of breath, No sputum, No wheezing Cardiovascular: No chest pain, No edema, No lightheadedness, No no complaints, No orthopenea, No other, No palpitations, No paroxysmal nocturnal dyspnea Gastrointestinal: No blood, No constipation, No decreased appetite, No diarrhea , No flatus, No nausea, No no complaints, No other, No pain, No passing stool, No vomiting Musculoskeletal: No back pain, No bone/joint pain, No neck pain, No no complaints, No other, No restricted range of motion, No swelling Skin: No bruising, No erythema, No laceration, No no complaints, No other, No pruritis, No rash, No skin lesions PMH/Family/Social Social History Smoking Status: Never smoker Exam/Review of Systems Vital Signs Vitals Vital Signs Date Time Temp Pulse Resp B/P Pulse Ox O2 Delivery O2 Flow Rate FiO2 06/26/16 07:49 98.2 20 18 113/70 98 06/26/16 02:21 Room Air Exam Exam Constitutional:Well-developed. Well-nourished. HEENT:Normocephalic. Atraumatic.Pupils were equal round reactive to light. Dry mucous membranes.No tonsillar exudates. Neck: No nuchal rigidity. No lymphadenopathy. No posterior cervical spine tenderness or step-offs. Respiratory: Not using accessory muscles of respiration.Lungs were clear to auscultation bilaterally. No rhonchi. No rales. No wheezing. Cardiovascular: Regular rate regular rhythm.No murmurs. No rubs were appreciated.S1, S2 normal. Distal pulses are palpable 2+ bilaterally. GI: Abdomen was soft.Non Distended. No pulsatile abdominal masses or bruits. No rebound. No guarding. Bowel sounds were present and normal. Bilateral CVA tenderness Muscle skeletal: Full range of motion of both the upper and lower extremities bilaterally.Normal muscle tone.No assymetrical calf tenderness or swelling. Skin: No petechia, no purpura. No lesions on the palms or the soles of the feet. No maculopapular rash. NEURO: Patient was alert, awake, orientated x3.No facial droop. Gait observed and normal with no ataxia.Speech had regular rate and rhythm. No focal neurological deficits. Labs Result Diagram: 06/26/16 0520 06/26/16 0520 Medications Medications Current Medications Ceftriaxone Sodium (Rocephin) 50 ml @ 100 mls/hr Q24H IVPB ; Start 06/26/16 at 18:30 Ondansetron HCl (Zofran Inj) 4 mg Q6H PRN IV NAUSEA AND/OR VOMITING; Start 06/25 at 23:00 Hydromorphone HCl (Dilaudid) 0.5 mg Q4H PRN IV PAIN; Start 06/25/16 at 23:00 Mycophenolate Mofetil (Cellcept) 1,000 mg BID PO Last administered on 06/26/16 08:25; Admin Dose 1,000 MG; Start 06/26/16 at 09:00 ANGELITO STINSON MD Jun 26, 2016 08:48
[2016-06-26] MEDS: predniSONE 20 MG TAB PO SCH (09:05)
[2016-06-26] MEDS: CEFTRIAXONE 1 GM/50 ML (PMX) 50 ML IVPB SCH (18:01)
[2016-06-26 19:25] VITALS: BP 110/68; RESP 18
[2016-06-27 06:38] LABS: ADD SCAN DIFF NO
[2016-06-27 06:51] LABS: POTASSIUM 3.7 mmol/L (3.5-5.1)
[2016-06-27 06:54] LABS: CREATININE 1.32 mg/dl (0.61-1.24)
[2016-06-27 06:55] LABS: CALCIUM 8.5 mg/dl (8.4-10.2); MAGNESIUM 2.5 mg/dl (1.7-2.5); PHOSPHORUS 4.7 mg/dl (2.5-4.9)
[2016-06-27 07:00] LABS: ABNORMAL IP MESSAGE 1; EOSINOPHILS % 0.1 % (0.0-7.0); HEMATOCRIT 22.8 % (42.0-52.0); HEMOGLOBIN 7.3 g/dl (14.0-18.0); LYMPHOCYTES # 0.6 10^3/ul (0.8-2.9); LYMPHOCYTES % 8.5 % (15.0-51.0); MEAN CORPUSCULAR HEMOGLOBIN 26.1 pg (29.0-33.0); MEAN CORPUSCULAR VOLUME 81.4 fl (82.0-101.0); MEAN PLATELET VOLUME 10.4 fl (7.4-10.4); MONOCYTE # 0.7 10^3/ul (0.3-0.9); MONOCYTES % 10.4 % (0.0-11.0); NEUTROPHIL # 5.5 10^3/ul (1.6-7.5); NEUTROPHILS % 80.6 % (39.0-77.0); PLATELET COUNT 375 10^3/UL (140-415); RED CELL DISTRIBUTION WIDTH 14.8 % (11.5-14.5); WHITE BLOOD COUNT 6.9 10^3/ul (4.8-10.8)
[2016-06-27 07:18] VITALS: BP 115/73; RESP 16
[2016-06-27] MEDS: MYCOPHENOLATE 250 MG CAP PO SCH ×2 (09:12→20:24)
[2016-06-27] MEDS: predniSONE 20 MG TAB PO SCH (09:13)
--- NOTE | 2016-06-27 10:21 | CONS ---
Date/Time of Note Date/Time of Note DATE: 06/27/16 TIME: 10:20 Consult Date/Type/Reason Admit Date/Time Jun 25, 2016 at 18:29 Initial Consult Date Subjective pt. feels better. good uop. good appetite. restarted on prednisone. denies any bleeding. Objective Vital Signs Date Time Temp Pulse Resp B/P Pulse Ox O2 Delivery O2 Flow Rate FiO2 06/27/16 07:18 97.7 71 16 115/73 95 06/26/16 02:21 Room Air Intake and Output 06/26/16 06/26/16 06/27/16 15:00 23:00 07:00 Intake Total 960 ml 1450 ml 400 ml Output Total 800 ml 1700 ml 800 ml Balance 160 ml -250 ml -400 ml Results/Medications Result Diagram: 06/27/16 0500 06/27/16 0500 Results 24 hrs Laboratory Tests Test 06/27/16 05:00 Anion Gap 15 Basophils # 0.0 Basophils % 0.0 Blood Urea Nitrogen 24 H Calcium Level 8.5 Carbon Dioxide Level 28 Chloride Level 100 Creatinine 1.32 H Eosinophils # 0.0 Eosinophils % 0.1 Glucose Level 132 # Hematocrit 22.8 L Hemoglobin 7.3 L Lymphocytes # 0.6 L Lymphocytes % 8.5 L Magnesium Level 2.5 Mean Corpuscular Hemoglobin 26.1 L Mean Corpuscular Hemoglobin Concent 32.0 Mean Corpuscular Volume 81.4 L Mean Platelet Volume 10.4 Monocytes # 0.7 Monocytes % 10.4 Neutrophils # 5.5 Neutrophils % 80.6 H Nucleated Red Blood Cells # 0.0 Nucleated Red Blood Cells % 0.0 Phosphorus Level 4.7 Platelet Count 375 Potassium Level 3.7 Red Blood Count 2.80 L Red Cell Distribution Width 14.8 H Sodium Level 139 White Blood Count 6.9 Medications Current Medications Ceftriaxone Sodium (Rocephin) 50 ml @ 100 mls/hr Q24H IVPB Last administered on 06/26/16t 18:01; Admin Dose 100 MLS/HR; Start 06/26/16 at 18:30 Ondansetron HCl (Zofran Inj) 4 mg Q6H PRN IV NAUSEA AND/OR VOMITING; Start 06/25 at 23:00 Hydromorphone HCl (Dilaudid) 0.5 mg Q4H PRN IV PAIN; Start 06/25/16 at 23:00 Mycophenolate Mofetil (Cellcept) 1,000 mg BID PO Last administered on 06/27/16 09:12; Admin Dose 1,000 MG; Start 06/26/16 at 09:00 Prednisone (Prednisone) 40 mg DAILY PO Last administered on 06/27/16 09:13; Admin Dose 40 MG; Start 06/26/16 at 09:00 Assessment/Plan Chief Complaint/Hosp Course 1. Pyelonephritis- await cultures, cont ivf, iv abx, watch uop 2.lupus nephritis- resume meds, cellcept and steroids. 3. htn-stable 4. anemia- add protonix, check iron, stool OB, epogen x 1 Problems: ANGELITO STINSON MD Jun 27, 2016 10:21
[2016-06-27] MEDS ORDERED: EPOETIN 10000 UNITS/ML (NON ESRD/NON ONCOLOGY) SC SCH (11:30)
[2016-06-27] MEDS: PANTOPRAZOLE (EC) 40 MG TAB PO SCH (17:29)
[2016-06-27] MEDS: CEFTRIAXONE 1 GM/50 ML (PMX) 50 ML IVPB SCH (17:30)
[2016-06-28] MEDS: PANTOPRAZOLE (EC) 40 MG TAB PO SCH (05:48)
[2016-06-28 05:59] LABS: ADD SCAN DIFF NO
[2016-06-28 06:08] LABS: EOSINOPHILS % 0.1 % (0.0-7.0); HEMATOCRIT 25.5 % (42.0-52.0); LYMPHOCYTES # 0.8 10^3/ul (0.8-2.9); LYMPHOCYTES % 10.6 % (15.0-51.0); MEAN CORPUSCULAR HEMOGLOBIN 25.7 pg (29.0-33.0); MEAN CORPUSCULAR HGB CONC 31.4 g/dl (32.0-37.0); MEAN PLATELET VOLUME 9.9 fl (7.4-10.4); MONOCYTE # 0.7 10^3/ul (0.3-0.9); MONOCYTES % 8.7 % (0.0-11.0); NEUTROPHIL # 6.2 10^3/ul (1.6-7.5); PLATELET COUNT 443 10^3/UL (140-415); RED BLOOD COUNT 3.11 10^6/ul (4.70-6.10); RED CELL DISTRIBUTION WIDTH 14.8 % (11.5-14.5); WHITE BLOOD COUNT 7.8 10^3/ul (4.8-10.8)
[2016-06-28 06:14] LABS: CREATININE 1.35 mg/dl (0.61-1.24)
[2016-06-28 06:15] LABS: CALCIUM 8.9 mg/dl (8.4-10.2); MAGNESIUM 2.2 mg/dl (1.7-2.5); PHOSPHORUS 5.6 mg/dl (2.5-4.9)
[2016-06-28 06:29] LABS: IRON 82 ug/dl (35-150)
[2016-06-28 06:38] LABS: TOTAL IRON BINDING CAPACITY 214 ug/dl (241-421)
[2016-06-28 07:21] VITALS: BP 132/83; RESP 18
[2016-06-28] MEDS: predniSONE 20 MG TAB PO SCH (09:17)
[2016-06-28] MEDS: MYCOPHENOLATE 250 MG CAP PO SCH ×2 (09:18→20:05)
--- NOTE | 2016-06-28 09:22 | PN ---
DATE: 06/28/2016 SUBJECTIVE: The patient is clinically feeling better. The abdominal pain, back pain, fevers, chill s have resolved. No other acute events noted. OBJECTIVE: VITAL SIGNS: Blood pressure is 132/83, respirations 18, pulse 65, temperature 97.5. HEENT: Head is normocephalic. NECK: Supple. HEART: Regular rate. LUNGS: Show diminished breath sounds at base. ABDOMEN: Soft, nontender to palpation, no rebound or guarding. EXTREMITIES: Negative for clubbing, cyanosis, no edema. DERMATOLOGIC: No rashes. MUSCULOSKELETAL: No joint effusions. NEUROLOGIC: No change in exam. MEDICATIONS: The patient's medications have been reviewed. LABORATORY DATA: Shows a white count 7.8, hemoglobin 8.0, hematocrit 25.5, platelet count is 443,00 0. Sodium 142, potassium 4.0, BUN 28, creatinine 1.35. Current saturation is 38. The patient's cu ltures have been negative x2. ASSESSMENT AND PLAN: 1. Presumed pyelonephritis. The patient's CT scan positive for perinephric edema. The patient is clinically with cerebrovascular accident tenderness, abdominal pain, fevers. The patient is clinica lly responding with IV antibiotics. Cultures have been negative to date. At this point, continue c urrent antibiotic regimen and will follow up with infectious disease for recommendations and the [facility] of antibiotic therapy. 2. Nonoliguric acute kidney injury, etiology secondary to lupus nephritis. The patient is status p ost renal biopsy, which showed focal proliferative lupus nephritis class III. At this point, we audrey l continue current medical management with CellCept 1 gram b.i.d., continue prednisone 40 mg daily. We will continue supportive care, renally dose medications, avoid nephrotoxins. 3. Systemic lupus erythematosus. The patient is currently stable. Continue current medical with CellCept and prednisone. 4. Mineral bone disorder. Monitor calcium and phosphorus levels. 5. Anemia, likely of chronic disease. The patient's iron panel shows normal saturations. The michelle ent is status post Epogen. We will continue to monitor. 6. Thrombocytosis, likely reactive in nature. Continue to monitor. 7. Gastrointestinal and deep venous thrombosis prophylaxis. Continue proton pump inhibitor and seq uential leg squeezers. Dictated By: ISMAEL WALL/CURT Conf#: [id number] [facility]#: [id number]
--- NOTE | 2016-06-28 16:41 | CONS ---
DATE OF ADMISSION: 06/26/2016 DATE OF CONSULTATION: 06/28/2016 REASON FOR CONSULTATION: Antibiotic management. HISTORY OF PRESENT ILLNESS: Ramin Hinkle is a 36-year-old pleasant male with history of lupus neph ritis on immunosuppressive therapy, who presents to the emergency room with 3 days of flank pain, fe vers, shaking chills and decreased appetite. He was seen by Dr. Romero and sent to the emergency r oom. He has been on antipyretics. He is currently on CellCept. He denies hemoptysis, hematemesis, or melena. His past problems include: 1. Systemic lupus erythematosus on immunosuppressants, including prednisone and CellCept. 2. Status post appendectomy. 3. ALLERGIES TO TRIMETHOPRIM SULFA. On admission, his white count was 10.5, H and H of 8 and 24.7, platelet count 396,000, BUN and creat inine 16/.78. HOSPITAL COURSE: The patient was seen by Dr. Hubbard and also by Dr. Romero. He is feeling better . His white count is down to 7.8, H and H of 8 and 25.5, platelet count 443,000. BUN and creatinin e 28/1.35. Cultures have been negative. The patient with presumed pyelonephritis. CT scan is posi tive for perinephric edema. He was also seen by Dr. Hubbard. The patient is currently on ceftriaxon e, prednisone and CellCept. CellCept is 1 gram b.i.d., prednisone is [address] scan of the abdomen and pelvis, multiple smal l retroperitoneal lymph nodes, mild bilateral perinephric edema. Diverticulosis of the ascending co balwinder without evidence of diverticulitis. PAST MEDICAL HISTORY: Operations as outlined. FAMILY HISTORY: Noncontributory. SOCIAL HISTORY: He does not smoke, drink or abuse drugs. ALLERGIES: NONE TO PENICILLIN, SULFA OR FOODS. MEDICATIONS: Per chart. REVIEW OF SYSTEMS: As per HPI. PHYSICAL EXAMINATION: GENERAL: The patient is a well-developed, well-nourished male, alert, responsive, in no acute distr ess. VITAL SIGNS: Stable. He is afebrile. SKIN: Without generalized rash. HEENT: Within normal limits. NECK: Supple. LYMPH NODES: None palpable. CHEST: Decreased breath sounds at the bases. HEART: Without murmur or gallop. ABDOMEN: Soft, nontender, without organosplenomegaly or masses. He has bilateral CVA tenderness. EXTREMITIES: Without cyanosis, clubbing, or edema. RECTAL AND GENITAL: Deferred. NEUROLOGICAL: No focal neurological abnormalities. LABORATORY DATA: Blood cultures are negative. Urine cultures negative. ANCILLARY LABORATORY DATA: White count 7.8 today. H and H of 8 and 25.5, platelet count 443,000. BUN and creatinine 28/1.35 and occult blood is negative. We will continue him on his current regime n. I will dictate my findings to Dr. Hubbard and Dr. Romero. Dictated By: VARINDER KERR MD, JD/CURT Conf#: [id number] DID#: [id number]
[2016-06-28] MEDS: CEFTRIAXONE 1 GM/50 ML (PMX) 50 ML IVPB SCH (18:34)
[2016-06-28 20:09] VITALS: BP 122/85; RESP 18
[2016-06-29 05:38] LABS: ADD SCAN DIFF NO
[2016-06-29] MEDS: PANTOPRAZOLE (EC) 40 MG TAB PO SCH (05:41)
[2016-06-29 05:54] LABS: EOSINOPHILS % 0.1 % (0.0-7.0); HEMATOCRIT 25.3 % (42.0-52.0); LYMPHOCYTES # 0.9 10^3/ul (0.8-2.9); LYMPHOCYTES % 12.8 % (15.0-51.0); MEAN CORPUSCULAR HEMOGLOBIN 26.1 pg (29.0-33.0); MEAN CORPUSCULAR HGB CONC 31.6 g/dl (32.0-37.0); MEAN CORPUSCULAR VOLUME 82.4 fl (82.0-101.0); MONOCYTE # 0.7 10^3/ul (0.3-0.9); MONOCYTES % 9.4 % (0.0-11.0); NEUTROPHIL # 5.3 10^3/ul (1.6-7.5); NEUTROPHILS % 75.4 % (39.0-77.0); PLATELET COUNT 493 10^3/UL (140-415); RED BLOOD COUNT 3.07 10^6/ul (4.70-6.10); RED CELL DISTRIBUTION WIDTH 14.9 % (11.5-14.5)
[2016-06-29 06:10] LABS: POTASSIUM 4.1 mmol/L (3.5-5.1)
[2016-06-29 06:12] LABS: CREATININE 1.26 mg/dl (0.61-1.24)
[2016-06-29 06:13] LABS: PHOSPHORUS 5.1 mg/dl (2.5-4.9)
[2016-06-29 06:14] LABS: CALCIUM 8.9 mg/dl (8.4-10.2)
[2016-06-29 07:31] VITALS: BP 123/79; RESP 20
[2016-06-29] MEDS: predniSONE 20 MG TAB PO SCH (09:22)
[2016-06-29] MEDS: MYCOPHENOLATE 250 MG CAP PO SCH (09:22)
--- NOTE | 2016-06-29 13:05 | PN ---
DATE: 06/29/2016 SUBJECTIVE: Patient is alert, feels good. Denies pain, discomfort. No fevers. Vital signs stable . He is currently on cefepime. WBC today is 7, no shift, no bands. BUN 27, creatinine 0.26. MICROBIOLOGY: Urine culture on 06/07/2016 grew klebsiella species that were susceptible to all anti biotics except Bactrim. Urine culture on this admission remains negative. Blood culture negative. DIAGNOSTICS: CT of the abdomen and pelvis revealed perinephric edema, unchanged; diverticulosis of the ascending colon without evidence of diverticulitis. PHYSICAL EXAMINATION: GENERAL: Well-developed, well-nourished, middle-aged man who is alert, in no distress. HEENT: Head atraumatic, normocephalic. Sclerae anicteric. Buccal mucosa pink. NECK: Supple. Trachea midline. CHEST: Rise symmetrical. Breath sounds clear. HEART: S1, S2. ABDOMEN: Soft. Bowel tones present. EXTREMITIES: Without cyanosis or edema. ASSESSMENT: 1. Acute pyelonephritis. 2. Acute kidney injury secondary to lupus nephritis, status post renal biopsy, remains on CellCept and prednisone. 3. Systemic lupus erythematosus. 4. Anemia. PLAN: The patient remains stable. Again, cultures have been negative. He is afebrile and looks no ntoxic. I anticipate discharge home on oral antibiotics, Cipro, Levaquin, or Keflex. The patient m ay follow with Dr. Castaneda at the office p.r.n. Dictated By: AUGUSTA KOLB FUR [employer]ESSING SUPERVISOR for VARINDER LIRA/CURT Conf#: [id number] DID#: [id number]
--- NOTE | 2016-06-29 14:34 | DS ---
DATE OF ADMISSION: 06/26/2016 DATE OF DISCHARGE: 06/29/2016 HOSPITAL COURSE: This is a 36-year-old male well known to me with a diagnosis of lupus nephritis, s ystemic lupus erythematosus, currently on immunosuppression therapy, who was admitted to [facility] for complaints of abdominal pain and fever. The patient was recently diagnosed wi lupus nephritis in April. At that time, the patient was placed on CellCept and prednisone. Th e patient has had a good clinical response with the resolution of his extrarenal symptoms. The michelle ent was seen by myself 1 day prior to admission when he started developing abdominal pain or dysuria . As a result, the patient was brought into [facility] and was admitted for evalu ation of pyelonephritis. The patient was placed on empiric antibiotic therapy. Blood cultures and urine cultures were obtained which were negative. The patient's initial urinalysis was positive for pyuria. The patient clinically improved with antibiotic therapy. He was also seen by ramiro lugo, Dr. Castaneda. At this point, the patient is clinically stable, will be discharged home on Kef niels 500 mg b.i.d. for a 10-day course. The patient also continue his current treatment for lupus ne phritis with CellCept 1000 b.i.d. and prednisone 40 mg daily. Currently, at the time of discharge, the patient is stable, in no acute distress. FINAL DIAGNOSES 1. Pyelonephritis, clinically improved. Will continue antibiotic therapy in outpatient setting of Keflex. 2. Nonoliguric acute kidney injury secondary to lupus nephritis. The patient's renal function is s lowly improving. Continue current regimen of CellCept and prednisone 40 mg daily. 3. Lupus. Continue current medical management. 4. Mineral bone disorder. 5. Anemia. The patient is status post Epogen. Continue to monitor H and H levels. 6. Thrombocytosis, reactive in nature. Continue to monitor. At the time of discharge, the patient is stable, in no acute distress. FINAL MEDICATIONS: 1. Keflex 500 mg b.i.d. x10 days. 2. CellCept 1000 mg p.o. b.i.d. 3. Prednisone 4 mg daily. Please note it took me 40 minutes of time preparing the patient's discharge. Dictated By: ISMAEL WALL/CURT Conf#: [id number] [facility]#: [id number]
== END 2016-06-29 13:19 | disposition home or self-care (01) | DRG 690 ==
LOC: E/R 14:16 → MS2 18:29 → OBSVTOIN 06-26 13:18 → MS2 06-27 20:36
PROVIDERS: ADMIT Internal Medicine; ATTEND Internal Medicine
DX: N12 Tubulo-interstitial nephritis, not specified as acute or chronic (principal); N17.9 Acute kidney failure, unspecified; M32.14 Glomerular disease in systemic lupus erythematosus; D64.9 Anemia, unspecified; D47.3 Essential (hemorrhagic) thrombocythemia
CPT/HCPCS: 74176; 80048; 80053; 81001; 81003; 82150; 82270; 82728; 83540; 83605; 83690; 83735; 84100; 84484; 85025; 85610; 85730; 87040; 87086; 93005; 96374; 99217; G0378; J0696; J0885; J7030; J7512; J7517

== ENCOUNTER 2017-04-14 20:10 | Emergency (ER) | END 2017-04-14 23:52 | disposition home or self-care (01) ==

== ENCOUNTER 2017-06-18 01:22 | Emergency (ER) | END 2017-06-18 05:24 | disposition home or self-care (01) ==